=== PATIENT | female | born 1940 | race Caucasian/White ===

== ENCOUNTER → 2017-11-28 14:11 | Outpatient (CLI) | payer MEDICARE, SELFPAY ==
[2017-11-28 14:44] LABS: Add Manual Diff / Slide Review NO; Basophils Percent Auto 0.3 % (0-2); Eosinophils Percent Auto 1.5 % (2-4); Hematocrit 44.2 % (36-46); Hemoglobin 15.5 g/dL (12.0-16.0); Lymphocytes Percent Auto 28.7 % (25-40); Mean Corpuscular HGB Conc 35.1 % (30-36); Mean Corpuscular Hemoglobin 32.2 PG (26-34); Mean Corpuscular Volume 91.7 fL (80-100); Monocytes Percent Auto 10.6 % (3-14); Neutrophils Absolute Auto 4700 /uL (3000-5900); Neutrophils Percent Auto 58.9 % (50-75); Platelet Count 356 X10^3/uL (150-400); Red Blood Cell Count 4.82 X10^6/uL (4.0-5.2); Red Cell Distribution Width 14.3 % (11.6-14.8)
[2017-11-28 15:33] LABS: Alanine Aminotransferase 22 IU/L (9-52); Albumin 4.6 g/dL (3.5-5.0); Albumin Globulin Ratio 1.8 (1.0-2.8); Alkaline Phosphatase 57 U/L (38-126); Aspartate Aminotransferase 19 IU/L (14-36); BUN Creatinine Ratio 22.2 (6-22); Bilirubin Total 0.6 mg/dL (0.2-1.3); Blood Urea Nitrogen 20 mg/dL (7-17); Calcium 10.8 mg/dL (8.4-10.2); Carbon Dioxide 33 mmol/L (22-32); Chloride 103 mmol/L (98-107); Estimated Glomerular Filt Rate > 60.0 mL/min (>60); Globulin 2.5 g/dL (1.7-4.1); Glucose 86 mg/dL (80-110); HEMOLYSIS < 15 (0-50); Lipase 64 U/L (23-300); Potassium 5.2 mmol/L (3.4-5.1); Sodium 145 mmol/L (137-145); Total Protein 7.1 g/dL (6.3-8.2)
[2017-11-28 15:35] LABS: C-Reactive Protein Quant < 0.5 mg/dL (<1.0)
== END ==
PROVIDERS: Visit Provider Student in an Organized Health Care Education/Training Program
DX: R10.9 Unspecified abdominal pain (principal)
CPT/HCPCS: 36415; 80053; 83690; 85025; 86140

== ENCOUNTER → 2018-02-15 10:04 | Outpatient (CLI) | payer MEDICARE, SELFPAY ==
--- NOTE | 2018-02-15 10:16 | DI.CT.S_ITS ---
PROCEDURE: CT ABDOMEN PELVIS W CON INDICATIONS: Right lower quad pain TECHNIQUE: After the administration of oral and intravenous contrast, 5 mm thick sections acquired from the diaphragms to the symphysis. 5 mm thick coronal and sagittal reformats were performed. For radiation dose reduction, the following was used: automated exposure control, adjustment of mA and/or kV according to patient size. COMPARISON: None. FINDINGS: Image quality: Excellent. ABDOMEN: Lung bases: There is a small left pleural effusion. Mild left basilar airspace opacity is present. There is a 25 mm diameter nodule within the anterior basilar aspect of the lingula. Trace right pleural effusion. Heart size is normal. There are a few soft tissue nodules within the paracardiac fat adjacent to the cardiac apex, measuring 12 mm-32 mm. Solid organs: Hepatic contour is nodular, indicating cirrhosis.. Gallbladder is surgically absent. Biliary system is non-dilated. Pancreas enhances normally. Spleen is normal in size and enhancement. No adrenal nodules. Kidneys are normal in size and enhancement, without hydronephrosis. Peritoneum and bowel: Stomach and small bowel are within normal limits. There is moderate diffuse thickening of the distal descending colon and sigmoid colon. No free fluid or air. Nodes and vessels: No retroperitoneal or mesenteric adenopathy. Aorta and inferior vena cava are normal in caliber. Miscellaneous: No ventral hernias. PELVIS: Genitourinary: Urinary bladder is decompressed. Miscellaneous: No inguinal hernias or adenopathy. Bones: No suspicious bony lesions. Thoracolumbosacral fusion hardware is present. Hardware is intact as visualized. The right T10 pedicle screw traverses the right lateral epidural versus intrathecal space and terminates at the posterior cortex of the vertebral body. The right L2 pedicular screw head is absent, and there is a lucent defect in its stead. No vertebral body compression fractures. IMPRESSION: 1. Left lung base nodule and paracardiac soft tissue nodules; further assessment with IV contrast enhanced chest CT is recommended. 2. Mild left basilar pneumonia with small parapneumonic effusion. Trace right pleural effusion. 3. Thoracolumbar fusion hardware as above. 4. Cirrhosis. Dictated by: Bear Ulloa M.D. on 02/15/2018 at 12:14 Approved by: Bear Ulloa M.D. on 02/15/2018 at 12:20
[2018-02-15 10:39] LABS: BUN Creatinine Ratio 17.8 (6-22); Blood Urea Nitrogen 16 mg/dL (7-17); Estimated Glomerular Filt Rate > 60.0 mL/min (>60)
== END ==
PROVIDERS: PCP Student in an Organized Health Care Education/Training Program; Visit Provider Internal Medicine Gastroenterology
DX: J18.9 Pneumonia, unspecified organism (principal); R19.03 Right lower quadrant abdominal swelling, mass and lump; R10.31 Right lower quadrant pain; K74.60 Unspecified cirrhosis of liver; R91.1 Solitary pulmonary nodule; J90 Pleural effusion, not elsewhere classified; Z90.49 Acquired absence of other specified parts of digestive tract; Z98.1 Arthrodesis status
CPT/HCPCS: 36415; 74177; 82565; 84520; Q9967

== ENCOUNTER → 2018-02-20 13:15 | Outpatient (CLI) | payer MEDICARE, SELFPAY ==
--- NOTE | 2018-02-20 | DI.CT.S_ITS ---
PROCEDURE: CT CHEST W CON INDICATIONS: LUNG NODULE TECHNIQUE: After the administration of intravenous contrast, 5 mm thick sections acquired from the pulmonary apices to the posterior costophrenic angles. 7 mm thick coronal and sagittal MIP reformats were acquired. For radiation dose reduction, the following was used: automated exposure control, adjustment of mA and/or kV according to patient size. COMPARISON: [facility], CT, CT ABDOMEN PELVIS W CON, 02/15/2018, 11:19. FINDINGS: Image quality: Excellent. Lungs and pleura: No acute air space opacities. A previously present lingular segment left upper lobe nodule is seen abutting the periphery of the lung parenchyma, and pleural surface. This measures up to 1.5 x 2.3 cm, and is mildly lobulated. No similar nodules are seen elsewhere. Chronic interstitial prominence is again noted through the lung parenchyma. No mediastinal or hilar adenopathy is found. No right-sided pleural effusions or pneumothorax. There is a small left effusion without internal soft tissue nodularity or rim enhancement. Central and peripheral airways are patent and normal in caliber. Mediastinum: Heart size is normal. No pericardial effusion. No mediastinal or hilar adenopathy by size criteria. Thoracic aorta and central pulmonary arteries are normal in size. Esophagus is normal in caliber. No hiatal hernia. Bones and chest wall: No suspicious bony lesions. No vertebral body compression fractures. No axillary or supraclavicular adenopathy by size criteria. Thyroid gland appears normal where well visualized. Abdomen: Visualized upper abdominal solid organs appear normal. Upper abdominal bowel loops are normal in caliber. IMPRESSION: A nodular radiodensity was identified at the lateral border of the lingular segment left upper lobe on abdomen/pelvis CT scanning 02/15/18. This structure is again identified, stable over time, and warrants additional followup. No mediastinal or hilar adenopathy is present. A small left effusion is identified within the pleural space. Optimal followup would be obtained utilizing nuclear medicine PET CT scanning for solitary pulmonary nodule workup. The mass present could represent round atelectasis but a early bronchogenic carcinoma also could produce this appearance. Dictated by: Jony Moreno M.D. on 02/20/2018 at 13:45 Approved by: Jony Moreno M.D. on 02/20/2018 at 13:51
== END ==
PROVIDERS: PCP Student in an Organized Health Care Education/Training Program; Visit Provider Internal Medicine Gastroenterology
DX: R92.1 Mammographic calcification found on diagnostic imaging of breast (principal)
CPT/HCPCS: 71260; Q9967

== ENCOUNTER 2018-02-22 19:40 | Inpatient (IN) | payer MEDICARE, SELFPAY ==
--- NOTE | 2018-02-22 19:47 | ED.GENADULT ---
HPI - General Adult General Chief complaint: Fall Stated complaint: Low blood pressure Time Seen by Provider: 02/22/18 19:47 Source: patient and EMS Mode of arrival: EMS Limitations: no limitations History of Present Illness HPI narrative: 77-year-old female lives independently brought in by EMS after they were initially called for a lift assist. Patient states that she did fall. She was unsure exactly how she fell. She thinks she may have tripped over her walker however she is unsure. She did state that she did not have chest pain or lightheadedness or dizziness or shortness of breath prior to the fall. When EMS arrived and when they sat her up they stated that she complained of being very lightheaded. No dizziness reported. They took her blood pressure and found it to be systolic in the 70s. They brought her into the emergency department for evaluation. Upon arrival patient states that she just did not feel very good. She did complain of abdominal pain however review of her medical history this does not appear to be new. She did have a CT scan of her abdomen performed within the past month which showed no acute pathology. She is also complaining of left shoulder pain however this is not new. Also complaining of back pain but this is not new. Related Data Home Medications Medication Instructions Recorded Confirmed cyanocobalamin (vitamin B-12) 1,000 mcg PO QDAY #30 tab 06/10/17 01/13/18 melatonin 5 mg PO HS #30 tab 06/10/17 01/13/18 Previous Rx's Medication Instructions Recorded metoclopramide HCl 10 mg PO TIDAC PRN #30 tab 06/10/17 trazodone 100 mg tablet 200 mg PO HS 30 Days #60 tab 12/12/17 levothyroxine 100 mcg tablet 100 mcg PO DAILY #90 tab 12/16/17 duloxetine 30 mg capsule,delayed 30 mg PO BID #60 tab 12/26/17 release metoprolol tartrate 25 mg tablet 25 mg PO BID #60 tab 12/26/17 famotidine 20 mg tablet 20 mg PO BID #60 tab 01/06/18 alprazolam 1 mg tablet 1 mg PO BIDP PRN #60 tab 01/13/18 gabapentin 300 mg capsule 300 mg PO BID 30 Days #60 cap 01/13/18 simvastatin 20 mg tablet 20 mg PO HS #30 tab 11/05/18 Allergies Allergy/AdvReac Type Severity Reaction Status Date / Time meperidine [From DEMEROL] Allergy Unknown Verified 01/13/18 14:30 piroxicam [From FELDENE] Allergy Unknown Verified 01/13/18 14:30 Review of Systems Constitutional Denies chills, Reports fatigue, Denies frequent falls, Denies headache(s), Reports lethargy and Reports weakness Eyes Denies blurry vision and Denies diplopia ENT Ears, Nose, Mouth, and Throat: Denies vertigo, Denies dizziness, Denies headache(s) and Reports disequilibrium Cardiovascular Denies chest pain, Denies syncope, Denies edema, Denies irregular heart rhythm, Reports lightheadedness, Denies palpitations, Denies dyspnea and Denies slow heart rate Respiratory Denies cough and Denies dyspnea Gastrointestinal Gastrointestinal: Reports abdominal pain, Denies nausea and Denies vomiting Musculoskeletal Denies myalgias, Denies arthralgias and Denies tingling Integumentary/Breasts Denies rash Neurologic Denies vertigo, Denies dizziness, Denies syncope, Denies frequent falls, Denies headache(s), Denies tingling, Reports disequilibrium and Reports weakness Endocrine Reports fatigue and Denies palpitations Hematologic/Lymphatic Comments: Not on anticoagulation PFSH Medical History Epigastric pain (Acute) Polyneuropathy (Acute) Cervical spine disease (Chronic 1989) Chronic back pain (Chronic 1989) Depression (Chronic Unknown) Hiatal hernia (Chronic Unknown) Hyperlipemia (Chronic 2000) Hypertension (Chronic 2002) Hyperthyroidism (Chronic 1967) Lumbar disc disease (Chronic 2000) Osteoarthritis (Chronic 1997) Sleep apnea (Chronic 2001) Abnormal Pap smear of cervix (Resolved 1967) Cardiac arrhythmia (Resolved 2000) Fractures (Resolved Unknown) Measles (Resolved 1964) Mumps (Resolved 1965) Shoulder pain (Resolved 2015) Surgical History History of back surgery (Resolved Unknown) History of hip surgery (Resolved 2006) History of repair of ACL (Resolved Unknown) Hx of appendectomy (Resolved 1949) Hx of cholecystectomy (Resolved 1998) Hx of hysterectomy (Resolved 1967) Hx of tonsillectomy (Resolved ~1945) Family History Brother Age: 65 Diabetes mellitus Methamphetamine addiction Father Hypertension High cholesterol Mother No problems noted. Social History Smoking Status: Current every day smoker alcohol intake: never substance use type: does not use Exam Initial Vital Signs Initial Vital Signs: Vital Signs Temperature 98.7 F 02/22/18 19:48 Pulse Rate 82 02/22/18 19:48 Respiratory Rate 20 02/22/18 19:48 Blood Pressure 113/61 02/22/18 19:48 Pulse Oximetry 91 02/22/18 19:48 Const General: cooperative, well developed, well groomed and No acute distress Orientation: alert, awake and oriented x3 HENMT Head: normal to inspection and normocephalic Resp Effort & Inspection: normal respiratory effort Auscultation: clear to auscultation bilaterally Cardio Rate: regular rate Pulses: radial pulses present GI Inspection: non-distended Palpation: soft, No guarding and tender (Bilateral lower abdomen) Skin Lesions: no lesions Rashes: no rashes Neuro General: alert, awake and oriented x3 Cognition: normal cognition Speech: speech normal Extrem General: normal to inspection and capillary refill normal Psych Appearance: grossly normal and well kempt Scores GCS Analy coma scale eye opening: Spontaneous [place] coma scale verbal response: Orientated [place] coma scale motor response: Obey commands Analy coma scale total score: 15 Course Orders Ordered: ED Orders 02/22/18 20:16 Complete Blood Count AUTO DIFF Stat Comprehensive Metabolic Panel Stat Lactate (Lactic Acid) Stat Lipase Stat 02/22/18 20:17 Troponin I Stat Sodium Chloride (Normal Saline 0.9%) 1,000 mls @ 125 mls/hr IV CONT ASHLEY Discontinued Medications Sodium Chloride (Normal Saline 0.9%) 1,000 mls @ 1,000 mls/hr IV BOLUS ONE Stop: 02/22/18 23:24 Last Infusion: 02/22/18 23:58 Dose: 0 mls/hr Admin: 02/22/18 22:34 Dose: 1,000 mls/hr Tramadol HCl (Ultram) 50 mg PO NOW ONE Stop: 02/22/18 20:17 Last Admin: 02/22/18 20:21 Dose: 50 mg Vital Signs - 8 hr 02/22/18 19:48 02/22/18 20:33 02/22/18 21:39 Temperature 98.7 F Pulse Rate 82 74 64 Respiratory Rate 20 15 14 Blood Pressure 113/61 Blood Pressure [Left Arm] 113/61 103/74 Pulse Oximetry 91 92 93 02/22/18 22:35 02/22/18 23:05 Temperature Pulse Rate 61 61 Respiratory Rate 14 14 Blood Pressure Blood Pressure [Left Arm] 95/56 L 112/62 Pulse Oximetry 96 96 Medical Decision Making Medical Records Medical records reviewed: Yes I reviewed the patient's medical records. Lab Data Lab results reviewed: Yes I reviewed the patient's lab results. Result diagrams: 02/22/18 19:42 02/22/18 19:42 Lab Results 02/22/18 02/22/18 02/22/18 Range/Units 19:42 19:42 19:42 WBC 9.9 (4.5-11.0) X10^3/uL RBC 5.07 (4.0-5.2) X10^6/uL Hgb 16.0 (12.0-16.0) g/dL Hct 47.2 H (36-46) % MCV 93.1 (80-100) fL MCH 31.5 (26-34) PG MCHC 33.9 (30-36) % RDW 14.9 H (11.6-14.8) % Plt Count 315 (150-400) X10^3/uL Neut % (Auto) 66.0 (50-75) % Lymph % (Auto) 17.6 L (25-40) % [place] % (Auto) 13.7 (3-14) % Eos % (Auto) 1.9 L (2-4) % Baso % (Auto) 0.8 (0-2) % Neut # (Auto) 6500 H (8933-1108) /uL Sodium 135 L (137-145) mmol/L Potassium 4.2 (3.4-5.1) mmol/L Chloride 101 (98-107) mmol/L Carbon Dioxide 22 (22-32) mmol/L BUN 20 H (7-17) mg/dL Creatinine 0.90 (0.52-1.04) mg/dL Estimated GFR > 60.0 (>60) mL/min BUN/Creatinine Ratio 22.2 H (6-22) Glucose 169 H (80-110) mg/dL Lactate (0.7-2.1) mmol/L Calcium 9.4 (8.4-10.2) mg/dL Total Bilirubin 1.4 H (0.2-1.3) mg/dL AST 170 H (14-36) IU/L ALT 142 H (9-52) IU/L Alkaline Phosphatase 254 H (38-126) U/L Troponin I < 0.012 Cancelled (0.01-0.034) ng/mL Total Protein 6.5 (6.3-8.2) g/dL Albumin 3.7 (3.5-5.0) g/dL Globulin 2.8 (1.7-4.1) g/dL Albumin/Globulin Ratio 1.3 (1.0-2.8) Lipase 250 (23-300) U/L 02/22/18 Range/Units 20:29 WBC (4.5-11.0) X10^3/uL RBC (4.0-5.2) X10^6/uL Hgb (12.0-16.0) g/dL Hct (36-46) % MCV (80-100) fL MCH (26-34) PG MCHC (30-36) % RDW (11.6-14.8) % Plt Count (150-400) X10^3/uL Neut % (Auto) (50-75) % Lymph % (Auto) (25-40) % [place] % (Auto) (3-14) % Eos % (Auto) (2-4) % Baso % (Auto) (0-2) % Neut # (Auto) (7301-7084) /uL Sodium (137-145) mmol/L Potassium (3.4-5.1) mmol/L Chloride (98-107) mmol/L Carbon Dioxide (22-32) mmol/L BUN (7-17) mg/dL Creatinine (0.52-1.04) mg/dL Estimated GFR (>60) mL/min BUN/Creatinine Ratio (6-22) Glucose (80-110) mg/dL Lactate 0.8 (0.7-2.1) mmol/L Calcium (8.4-10.2) mg/dL Total Bilirubin (0.2-1.3) mg/dL AST (14-36) IU/L ALT (9-52) IU/L Alkaline Phosphatase (38-126) U/L Troponin I (0.01-0.034) ng/mL Total Protein (6.3-8.2) g/dL Albumin (3.5-5.0) g/dL Globulin (1.7-4.1) g/dL Albumin/Globulin Ratio (1.0-2.8) Lipase (23-300) U/L ECG Data Attestation: I personally reviewed and interpreted this ECG as follows: Prior ECG tracings: not available for review Interpretation: Sinus rhythm Ventricular rate 81 Normal axis Normal QRS Normal QTC Nonspecific ST T wave changes MDM Narrative Medical decision making narrative: Patient does have elevated liver enzymes compared with November of this year. Patient has a normal lipase. Has had her gallbladder removed in the past. Unsure the exact etiology of this for if it has anything to do with the symptoms that brought her in today. Her abdominal pain shoulder pain and back pain do not appear to be new. Considered AAA however she had a CT scan performed within the past couple weeks which showed a normal caliber aorta. Patient not anemic. Electrolytes unremarkable. Patient was given 1 L of fluids however when we attempted to ambulate the patient she became orthostatic and very lightheaded. Another L of fluids was ordered and again when we attempted to ambulate the patient she became orthostatic. She does take metoprolol twice a day. Her heart rate did not increase with her lower blood pressures. Unsure if she potentially took an extra dose of her metoprolol or potentially took an extra dose of her alprazolam. Discussed the case with the hospitalist who will admit the patient for observation and continued evaluation and treatment. Discharge Plan Departure Patient Disposition: Admitted as Observation Clinical Impression: Hypotension, Fall, Elevated liver enzymes Admit Date/Time: 02/23/18 00:20 Admit Provider: Goran Ramey
[2018-02-22 19:48] VITALS: BP 113/61; PULSE 82; RESP 20; TEMP 37.1; O2SAT 91; BMI 20.9
--- NOTE | 2018-02-22 20:00 | PC.NURSE ---
talked to pts son on the phone per pt permission, informed him of plan of care. Provider aware of conversation.
[2018-02-22] MEDS: TRAMADOL 50 MG TABLET PO (20:21)
[2018-02-22 20:24] LABS: Add Manual Diff / Slide Review NO; Basophils Percent Auto 0.8 % (0-2); Eosinophils Percent Auto 1.9 % (2-4); Hematocrit 47.2 % (36-46); Lymphocytes Percent Auto 17.6 % (25-40); Mean Corpuscular HGB Conc 33.9 % (30-36); Mean Corpuscular Hemoglobin 31.5 PG (26-34); Mean Corpuscular Volume 93.1 fL (80-100); Monocytes Percent Auto 13.7 % (3-14); Neutrophils Absolute Auto 6500 /uL (3000-5900); Platelet Count 315 X10^3/uL (150-400); Red Blood Cell Count 5.07 X10^6/uL (4.0-5.2); Red Cell Distribution Width 14.9 % (11.6-14.8); White Blood Cell Count 9.9 X10^3/uL (4.5-11.0)
[2018-02-22 20:33] VITALS: BP 113/61; PULSE 74; RESP 15; O2SAT 92
[2018-02-22 20:38] LABS: Alanine Aminotransferase 142 IU/L (9-52); Albumin 3.7 g/dL (3.5-5.0); Albumin Globulin Ratio 1.3 (1.0-2.8); Alkaline Phosphatase 254 U/L (38-126); Aspartate Aminotransferase 170 IU/L (14-36); BUN Creatinine Ratio 22.2 (6-22); Bilirubin Total 1.4 mg/dL (0.2-1.3); Blood Urea Nitrogen 20 mg/dL (7-17); Calcium 9.4 mg/dL (8.4-10.2); Carbon Dioxide 22 mmol/L (22-32); Chloride 101 mmol/L (98-107); Estimated Glomerular Filt Rate > 60.0 mL/min (>60); Globulin 2.8 g/dL (1.7-4.1); Glucose 169 mg/dL (80-110); Lipase 250 U/L (23-300); Sodium 135 mmol/L (137-145); Total Protein 6.5 g/dL (6.3-8.2)
[2018-02-22 20:39] LABS: HEMOLYSIS 82 (0-50); Potassium 4.2 mmol/L (3.4-5.1)
[2018-02-22 20:45] LABS: Lactate (Lactic Acid) 0.8 mmol/L (0.7-2.1)
[2018-02-22 20:50] LABS: Troponin I < 0.012 ng/mL (0.01-0.034)
[2018-02-22 21:39] VITALS: BP 103/74; PULSE 64; RESP 14; O2SAT 93
--- NOTE | 2018-02-22 21:59 | PC.NURSE ---
Pt given ambulation trial, pt became very dizzy/lightheaded. BP 94/74 requesting to sit down. Provider aware. Pt placed back in bed with call light.
[2018-02-22] MEDS: SODIUM CHLORIDE 0.9% 1,000 ML 1000 ML IV ×2 (22:30→22:34)
--- NOTE | 2018-02-22 22:34 | PC.NURSE ---
offered pt a sandwich and beverage per provider. pt refused. provider aware.
[2018-02-22 22:35] VITALS: BP 95/56; PULSE 61; RESP 14; O2SAT 96
--- NOTE | 2018-02-22 23:00 | PC.NURSE ---
Talked to pts family member Blaine, permission to share medical information from pt. Blaine informed of current plan of care, questions were answered. No new orders at this time. Pt aware.
[2018-02-22 23:05] VITALS: BP 112/62; PULSE 61; RESP 14; O2SAT 96
--- NOTE | 2018-02-22 23:59 | PC.NURSE ---
When she stood from sitting her b/p fell from 114/60 to 87/55and she became weak on her feet.DR Jansen notified.
[2018-02-23] VITALS (21 sets, daily range): BP systolic 93–128; BP diastolic 52–69; PULSE 59–78; RESP 12–22; TEMP 36.3–36.9; O2SAT 89–96; BMI 21.3
--- NOTE | 2018-02-23 | DI.CT.S_ITS ---
PROCEDURE: CT BIOPSY LUNG LT Sedation analgesia for 30 minutes. INDICATIONS: lung mass TECHNIQUE: The indications, alternatives, benefits, risks, and possible complications of the procedure were communicated to the patient. Informed written consent from the patient was obtained and placed in the chart. Continuous EKG and hemodynamic monitoring was started by trained personnel. The patient was brought to the CT suite and assembler watch train spiral CT imaging was performed with localization grid. The appropriate site for percutaneous access to the biopsy target was marked, was prepped and draped sterilely, and was infused with local anaesthesia. Under CT guidance, a core biopsy trocar and needle set was advanced to the biopsy target, and specimen(s) were obtained. The trocar and needle were then removed, and the patient was sent for post-procedure monitoring. COMPARISON: None. FINDINGS: Biopsy site: Lateral left lingula segment near left lung base anterior to oblique fissure. Needle: 18 gauge biopsy needle with introducer trocar. Number of passes: 5 Medications: 1% lidocaine for local anaesthesia. IV Fentanyl and Versed for conscious sedation for 30 minutes (see nursing record). Complications: None. IMPRESSION: Successful CT-guided biopsy of lingula segment of left upper lobe. Dictated by: Andrew Crawford M.D. on 02/23/2018 at 13:10 Approved by: Andrew Crawford M.D. on 02/23/2018 at 13:21
--- NOTE | 2018-02-23 | PATH_ITS ---
[facility] Accession Number: [id number] . 01 Material submitted: . KAREN NEAR BASE . 01 Clinical history: . LINGULAR SEGMENT LATERAL NEEDLE CORE BIOPSY . 02 Diagnosis: Lung, Left Upper Lobe, Near Base, Needle Core Biopsy: Poorly differentiated neuroendocrine carcinoma, consistent with small cell carcinoma. MRV/02/28/2018 . 02 Comment: The findings in this case were discussed with Dr. Mauricio by Dr. Dandre Thompson on 02/28/2018 at 11:55 a.m. . As part of routine research quality assurance analyst, Dr. Castaneda has reviewed this case and agrees with the above diagnosis. . 02 Electronically signed: . Dandre Thompson MD, PhD, Pathologist NPI- [id number] . 01 Gross description: . Received in formalin are multiple intact and fragmented core biopsies of landon-white translucent tissue (lengths: 0.2 cm-0.9 cm, diameters-less than 0.1 cm). Entirely submitted in cassette A1. ([id number]) /MRV . 02 Microscopic: . Sections are of fibrotic lung parenchyma expanded by a proliferation of atypical epithelioid cells with a nested growth pattern. To further evaluate these cells of interest, a panel of immunohistochemical stains is performed (each with an appropriately positive control). The neoplastic cells are strongly and diffusely positive for TTF1 and variably positive for both chromogranin and synaptophysin immunoreactivity. The cells of interest are negative for CK5, p40 and napsin immunoreactivity. Overall, the histologic findings and immunoprofile are consistent with a neuroendocrine carcinoma, favor small cell. . * This test was developed and its performance characteristics determined by [employer]. It has not been cleared or approved by the U.S. Food and Drug Administration. The FDA has determined that such clearance or approval is not necessary. This test is used for clinical purposes. It should not be regarded as investigational or for research. . 02 Pathologist provided ICD-10: C34.12 . 02 CPT . 313969, G82424, R23342 Performed at: 01 [facility] [address] [id number] MD Andre Patel MD Phone: [phone] Performed at: 02 [facility] [address] [place] [id number] MD Fadia Castaneda MD Phone: [phone]
--- NOTE | 2018-02-23 00:06 | PC.NURSE ---
Unable to verify medications,she is not sure of her meds and she has no list.
--- NOTE | 2018-02-23 00:38 | DI.CT.S_ITS ---
PROCEDURE: CT ABDOMEN PELVIS W CON INDICATIONS: lower right sided abdominal pain TECHNIQUE: After the administration of intravenous contrast, 5 mm thick sections acquired from the diaphragm to the symphysis. 5 mm coronal and sagittal reformats were acquired. For radiation dose reduction, the following was used: automated exposure control, adjustment of mA and/or kV according to patient size. COMPARISON: [facility], CT, CT ABDOMEN PELVIS W CON, 02/15/2018, 11:19. FINDINGS: Image quality: There is metallic streak artifact from patient's surgical hardware in the thoracolumbar spine and left hip as well as beam hardening artifact from patient's upper extremities. ABDOMEN: Lung bases: There is a lobulated nodule inferiorly in the left lingula measuring up to 2.1 x 1.5 cm redemonstrated. There is adjacent nodular masslike thickening along the pericardium measuring up to approximately 2.3 x 1.9 cm at the apex. The findings are suspicious for neoplasm. In addition, there are peripheral opacities in the left lower lobe likely representing atelectasis. Within the visualized lung bases, there are small pulmonary nodules also demonstrated on the right including a 3 mm right middle lobe nodule on series 4 image 8, a 4 mm subpleural nodule in the right lower lobe on image 9, and a 4 mm right lower lobe nodule on image 12. Small bilateral pleural effusions are demonstrated with loculated components demonstrated on the left. Heart size is normal. Solid organs: The liver is nodular in contour with diffuse nodular heterogeneous enhancement likely representing cirrhosis. The gallbladder surgically absent. Biliary system is non dilated. Pancreas enhances normally. Spleen is normal in size and enhancement. There is thickening of the left adrenal gland. Kidneys demonstrate no hydronephrosis. Peritoneum and bowel: Small bowel loops demonstrate normal wall thickness and caliber. There is mild diffuse wall thickening demonstrated throughout the colon most prominent in the sigmoid colon. A minimal amount of free fluid is demonstrated along the left paracolic gutter and in the pelvis. Nodes and vessels: No retroperitoneal or mesenteric adenopathy by size criteria. Aorta and inferior vena cava are normal in size. There is bilateral scattered calcified atherosclerotic plaque. Miscellaneous: No ventral hernias. PELVIS: Genitourinary: Bladder wall thickness is normal. Miscellaneous: No inguinal hernias or adenopathy. Bones: Sequelae of prior compression fractures status post postsurgical fixation are redemonstrated throughout the thoracolumbar spine. The findings are similar to the recent prior study. IMPRESSION: 1. Lobulated nodule in the inferior left lingula as well as masslike thickening along the pericardium are highly suspicious for a malignant neoplastic process. Recommend dedicated thoracic CT and histologic diagnosis as clinically indicated. 2. Small bilateral pleural effusions with loculated components in the left base. 3. Diffuse mild colonic wall thickening consistent with a nonspecific colitis most prominent within the sigmoid colon. 4. Nodular hepatic contour with heterogeneous nodular enhancement of the parenchyma likely representing cirrhosis. Evaluation for a focal hepatoma is limited on the current study. Further characterization may be performed with a liver protocol MRI or CT if indicated. 5. Extensive post-traumatic and post-surgical changes in the thoracolumbar spine. Dictated by: Andre Kahn M.D. on 02/23/2018 at 8:19 Approved by: Andre Khan M.D. on 02/23/2018 at 8:50
[2018-02-23] MEDS: SODIUM CHLORIDE 0.9% 1,000 ML 125 ML IV (00:59)
--- NOTE | 2018-02-23 01:14 | P.HP_ITS ---
History of Present Illness Chief complaint: Low blood pressure Narrative: PMH: HTN, HLD, WALESKA, hypothyroidism, polyneuropathy, depression, GERD , hiatal hernia, chronic lumbar back pain w/ sciatica, OA, tobacco dependence, prior history of heavy alcohol use PSH: cholecystectomy, appendectomy, hysterectomy Patient presented to the ED via EMS transfer on 02/22/2018 at 1933 respectively. Shortly prior to ED arrival, patient was sitting in her walker, she felt her legs to become weak and slipped off the walker landing onto her right side. Patient denies injury to the head and loss of conscious. With the exception of leg weakness the patient patient did not experience dizziness, lightheadedness, chest pain, palpitations, or diaphoresis. However, upon EMS arrival, patient was placed in a sitting position, at which time she was observed for symptoms consistent with postural changes. She was treated w/ 1L of NS bolus in field and received 2 L of NS in ED. Patient reports presence of PVCs for which she takes a beta-kurt; however, she denies history of tachy or vazquez arrhythmia, TIA/CVA, or thrombosis. In the past 2-3 weeks ago patient has been experiencing intermittent chest discomfort, which she describes as dull and at times sharp. Denies pleurisy, radiation to upper extremities, back, neck, or jaw. She experiences the chest discomfort multiple times a day. Denies associated dyspnea (at rest or with exertion), orthopnea, or peripheral edema. She has noted abdominal distension and abdominal discomfort in the upper quadrants of the abdomen. Notes constipation. Denies nausea, vomiting, or hemoptysis. Denies fever and chills. No significant weight loss, or profound fatigue, ecchymoses, or blood loss per rectum. Arthropathy present. Patient is known to have a 50 pack year history of tobacco dependence. Current smokes 1/2 pack per day. Known to have prior history of EtOH abuse, half a bottle of wine daily for 3 years, quit 10 years ago. Family history significant for myelodysplastic disorder in her mother. ED presentation / work-up T 98.7, BP 113/61, HR 82, RR 20, SpO2 91% WBC 9.9, RBC 5.07, HGB 16.0, HCT 47.2, PLT 315 NA 135, K 4.2, CL 101, CO2 22, CA 9.4, GLU 169 BUN 20, CR 0.9, BUN:CR 22.2, GFR > 60 Lactate 0.8, Trop < 0.012 T. BILI 1.4, AST 170, ALT 142, ALK PHOS 254, ALB 3.7, Lipase 250 Patient History Medical History Epigastric pain (Acute) Polyneuropathy (Acute) Cervical spine disease (Chronic 1989) Chronic back pain (Chronic 1989) Depression (Chronic Unknown) Hiatal hernia (Chronic Unknown) Hyperlipemia (Chronic 2000) Hypertension (Chronic 2002) Hyperthyroidism (Chronic 1967) Lumbar disc disease (Chronic 2000) Osteoarthritis (Chronic 1997) Sleep apnea (Chronic 2001) Abnormal Pap smear of cervix (Resolved 1967) Cardiac arrhythmia (Resolved 2000) Fractures (Resolved Unknown) Measles (Resolved 1964) Mumps (Resolved 1965) Shoulder pain (Resolved 2015) Surgical History History of back surgery (Resolved Unknown) History of hip surgery (Resolved 2006) History of repair of ACL (Resolved Unknown) Hx of appendectomy (Resolved 1949) Hx of cholecystectomy (Resolved 1998) Hx of hysterectomy (Resolved 1967) Hx of tonsillectomy (Resolved ~1945) Family & Social History Family History: Reviewed 02/23/18 by MYESHA Ball Safety & Behavioral: Feels Safe in Current Yes Environment Been Physically Hurt or No Threatened By a Person Tobacco & Substance use: Smoking Status Current every day smoker alcohol intake never Substance Use Type does not use Meds Home Medications Medication Instructions Recorded Confirmed Type cyanocobalamin (vitamin B-12) 1,000 mcg PO QDAY #30 tab 06/10/17 01/13/18 History melatonin 5 mg PO HS #30 tab 06/10/17 01/13/18 History metoclopramide HCl 10 mg PO TIDAC PRN #30 tab 06/10/17 01/13/18 Rx trazodone 100 mg tablet 200 mg PO HS 30 Days #60 tab 12/12/17 01/13/18 Rx levothyroxine 100 mcg tablet 100 mcg PO DAILY #90 tab 12/16/17 01/13/18 Rx duloxetine 30 mg capsule,delayed 30 mg PO BID #60 tab 12/26/17 01/13/18 Rx release metoprolol tartrate 25 mg tablet 25 mg PO BID #60 tab 12/26/17 01/13/18 Rx famotidine 20 mg tablet 20 mg PO BID #60 tab 01/06/18 01/13/18 Rx alprazolam 1 mg tablet 1 mg PO BIDP PRN #60 tab 01/13/18 Rx gabapentin 300 mg capsule 300 mg PO BID 30 Days #60 cap 01/13/18 Rx simvastatin 20 mg tablet 20 mg PO HS #30 tab 01/16/18 Rx Allergies Allergy/AdvReac Type Severity Reaction Status Date / Time meperidine [From DEMEROL] Allergy Unknown Verified 01/13/18 14:30 piroxicam [From FELDENE] Allergy Unknown Verified 01/13/18 14:30 Review of Systems Review of Systems All systems reviewed & are unremarkable except as noted in HPI and below Exam Vital Signs (past 8 hours): - 02/22/18 19:48 02/22/18 20:33 02/22/18 21:39 Temperature 98.7 F Pulse Rate 82 74 64 Respiratory Rate 20 15 14 Blood Pressure 113/61 Blood Pressure [Left Arm] 113/61 103/74 Pulse Oximetry 91 92 93 02/22/18 22:35 02/22/18 23:05 02/23/18 00:21 Temperature Pulse Rate 61 61 59 L Respiratory Rate 14 14 18 Blood Pressure Blood Pressure [Left Arm] 95/56 L 112/62 93/52 L Pulse Oximetry 96 96 95 Oxygen Delivery Method Nasal Cannula Oxygen Flow Rate 2 Narrative Exam Narrative: Constitutional: NAD Neurologic: AOx3, forgetful, adequate recall of history and symptoms Head: NC, AT Eyes: Pupils equal and reactive, gaze conjugate, no jaundice Ears: external ears normal, no otorrhea Nose: external nose normal, no rhinorrhea or epistaxis Throat: MMM, oropharynx w/o exudate Neck: no masses, lymphadenopathy, or JVD Chest / Respiratory: equal chest rise, unlabored respiratory effort / diminished, LLL anterior crackles, no tachypnea Heart / CV: S1S2, no murmur Abdomen / GI: mistended, palpable hepatomegaly, tender right upper quadrant, normal active bowel sounds, no inguinal lymphadenopathy : Suprapubic tenderness Peripheral / Vascular: warm to touch, distal pulses palpable, no edema Musc: full ROM of upper and lower extremities, adequate muscle tone and bulk Skin: no ecchymosis or suspicious lesions / ulcers Objective Labs Result Diagrams: 02/22/18 19:42 02/22/18 19:42 Labs: Laboratory Results - last 24 hr 02/22/18 02/22/18 02/22/18 19:42 19:42 19:42 WBC 9.9 RBC 5.07 Hgb 16.0 Hct 47.2 H MCV 93.1 MCH 31.5 MCHC 33.9 RDW 14.9 H Plt Count 315 Neut % (Auto) 66.0 Lymph % (Auto) 17.6 L [place] % (Auto) 13.7 Eos % (Auto) 1.9 L Baso % (Auto) 0.8 Neut # (Auto) 6500 H Sodium 135 L Potassium 4.2 Chloride 101 Carbon Dioxide 22 BUN 20 H Creatinine 0.90 Estimated GFR > 60.0 BUN/Creatinine Ratio 22.2 H Glucose 169 H Lactate Calcium 9.4 Total Bilirubin 1.4 H AST 170 H ALT 142 H Alkaline Phosphatase 254 H Troponin I < 0.012 Cancelled Total Protein 6.5 Albumin 3.7 Globulin 2.8 Albumin/Globulin Ratio 1.3 Lipase 250 02/22/18 20:29 WBC RBC Hgb Hct MCV MCH MCHC RDW Plt Count Neut % (Auto) Lymph % (Auto) [place] % (Auto) Eos % (Auto) Baso % (Auto) Neut # (Auto) Sodium Potassium Chloride Carbon Dioxide BUN Creatinine Estimated GFR BUN/Creatinine Ratio Glucose Lactate 0.8 Calcium Total Bilirubin AST ALT Alkaline Phosphatase Troponin I Total Protein Albumin Globulin Albumin/Globulin Ratio Lipase Assessment & Plan Plan: Assessment/Plan Narrative: Hypotension Potentially multifactorial, in the setting of dehydration / hypovolemia, 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 Concern for bronchogenic carcinoma or mediastinal malignancy with potential pericardial metastasis - consult Oncology, will need malignancy workup and further imaging and biopsy sooner rather than later, CT with changes changes since last imaging 10 days ago - discussed with patient the extent of workup she would wish to pursue, patient unable to make decision at this time, waiting to speak to her son in a.m. - continuous tele and pulse ox monitoring - monitor for signs/symptoms of cardiac tamponade Elevated liver enzymes + abdominal pain, distention CT of abdomen remarkable for hepatomegaly. Fatty infiltration and sclerotic change of the liver. CT imaging questionable for gastritis versus colitis. No indication of sepsis. Gallbladder is absent. No ductal dilatation. No obstructive process of large or small bowel. Family history of myelodysplastic disorder in the mother, diagnosed at age 74. HGB 16.0 HCT 47.2 - trend LFTs, UA, coags - concern for iron overload, will get iron panel/transfer and level Left shoulder pain, chronic - fentanyl patch
--- NOTE | 2018-02-23 02:18 | PC.NURSE ---
her o2 saturation dropped to 87 on room air,2liters nasal cannula re-applied.
[2018-02-23] MEDS: fentaNYL 12 MCG/PATCH TOP (04:21)
[2018-02-23 04:26] LABS: Bacteria Urine None Seen; RBC Urine None Seen (0-5/HPF); WBC Urine None Seen (0-5/HPF)
[2018-02-23 04:32] LABS: Appearance Urine UA CLEAR; Bilirubin Urine UA NEGATIVE (NEGATIVE); Color Urine UA YELLOW; Glucose Urine UA TRACE g/dL (Normal); Ketones Urine UA NEGATIVE (NEGATIVE); Leukocyte Esterase Urine UA NEGATIVE (NEGATIVE); Nitrite Urine UA NEGATIVE (Negative); Occult Blood Urine UA NEGATIVE (Negative); Protein Urine UA NEGATIVE (Negative)
[2018-02-23 04:48] LABS: Culture Indicated Urine Cult Not Indicated; Urine Comments Microscopic Normal
--- NOTE | 2018-02-23 04:56 | PC.ADMIT ---
Addendum entered by Rehana Helms R.N. 02/23/18 06:08: Has been sleeping with sat of 94%. States pain is now down to 6/10. Original Note: [email or web address] Admission Note: The patient,Alba Zarate,77 y/o, was given written information regarding hospital policies, unit procedures and contact persons. Patient's smoking status: Current every day smoker. Vital Signs - 8 hr 02/22/18 21:39 02/22/18 22:35 02/22/18 23:05 Pulse Rate 64 61 61 Respiratory Rate 14 14 14 Blood Pressure [Left Arm] 103/74 95/56 L 112/62 Pulse Oximetry 93 96 96 02/23/18 00:21 02/23/18 02:16 02/23/18 03:59 Pulse Rate 59 L 60 Respiratory Rate 18 18 Blood Pressure [Left Arm] 93/52 L 95/60 Pulse Oximetry 95 93 94 Patient admitted to room 230 per stretcher from ER. Is alert and oriented. Breath sounds with inspiratory crackles and expiratory wheezes but denies SOB. On oxygen at 1L/min per NC with sat of 94%. HRR and telemetry showing SR. Denies nausea. BT present and abdomen is soft but tender. Complains of 8-9/10 pain in back and left shoulder which is chronic; Fentanyl patch ordered by [facility] and placed. Indwelling catheter placed with dark jessy/brown urine returned; tolerated procedure well; UA sent to lab. Skin dry but without open areas. Does have scarring on back related to history of 7 back surgeries. Fall risk score is high and bed alarm activated; patient verbalizes understanding. Has chronic numbness in tips of fingers and bilateral feet. Normally walks with rolling walker which has a seat and that is what she slipped out of precipitating her arrival at the ER. Current smoker and has history of alcohol use but denies any alcohol in past 3 years. States her legs haven't been working well day of presentation and has felt weak. Placed on continuous pulse oximetry and sat dropped to 89% when asleep but noted to be mouth breathing so cannula placed in mouth and sat now at 96%; states she has history of sleep apnea and used to use a CPAP but it was stolen and never replaced. Oriented to bed controls and call light.
[2018-02-23 05:15] LABS: INR 1.1 (0.9-1.3); Prothrombin Time 12.7 SECONDS (10.1-12.7)
[2018-02-23 05:18] LABS: PTT Partial Thromboplastin Tim 31 SECONDS (26.4-36.2)
[2018-02-23 05:19] LABS: Alanine Aminotransferase 131 IU/L (9-52); Albumin Globulin Ratio 1.3 (1.0-2.8); Alkaline Phosphatase 223 U/L (38-126); Aspartate Aminotransferase 131 IU/L (14-36); Bilirubin Total 0.9 mg/dL (0.2-1.3); Bilirubin Unconjugated 0.2 mg/dL (0.0-1.1); Globulin 2.4 g/dL (1.7-4.1); HEMOLYSIS < 15 (0-50); Total Protein 5.4 g/dL (6.3-8.2)
[2018-02-23 05:21] LABS: Blood Urea Nitrogen 16 mg/dL (7-17); Calcium 8.4 mg/dL (8.4-10.2); Carbon Dioxide 23 mmol/L (22-32); Chloride 105 mmol/L (98-107); Estimated Glomerular Filt Rate > 60.0 mL/min (>60); Glucose 95 mg/dL (80-110); HEMOLYSIS < 15 (0-50); Potassium 3.5 mmol/L (3.4-5.1); Sodium 137 mmol/L (137-145)
[2018-02-23 05:25] LABS: Add Manual Diff / Slide Review NO; Basophils Percent Auto 0.8 % (0-2); Eosinophils Percent Auto 3.8 % (2-4); Hematocrit 42.6 % (36-46); Hemoglobin 14.6 g/dL (12.0-16.0); Mean Corpuscular HGB Conc 34.3 % (30-36); Mean Corpuscular Hemoglobin 32.2 PG (26-34); Monocytes Percent Auto 13.9 % (3-14); Neutrophils Absolute Auto 4900 /uL (3000-5900); Neutrophils Percent Auto 65.5 % (50-75); Platelet Count 246 X10^3/uL (150-400); Red Blood Cell Count 4.54 X10^6/uL (4.0-5.2); White Blood Cell Count 7.5 X10^3/uL (4.5-11.0)
[2018-02-23 05:48] LABS: HEMOLYSIS 30 (0-50); Iron 52 ug/dL (37-170)
[2018-02-23 05:59] LABS: Percent Iron Saturation 21 % (15-50); Total Iron Binding Capacity 251 ug/dL (265-497); Transferrin 168 mg/dL (206-381)
[2018-02-23 06:25] LABS: Ferritin 67.1 ng/mL (11.1-264)
--- NOTE | 2018-02-23 08:47 | CM.DANOTE ---
DCP: Case received, EMR reviewed and met with patient. Introduced self and role. DCP template completed with information currently available, and from son over the phone. Patient is a 77 year old female who admitted early this morning to the care of the hospitalist team. PCP: Dr. Reid. Payer: confirmed: Medicare/[employer]. Patient came to hospital via ambulance from [facility], secondary to low blood pressure. Patient carries diagnosis of Hypovolemia, Hypotension. Patient told this case management social worker that she uses walker at facility. Called son, Blaine MOON, his phone number is on face sheet, to obtain further information. He lives in [facility]. Stated that his mother has had 3 recent falls, and is concerned about her getting enough fluids and nutrition. He stated that at times, she just skips meals. [facility] is independent living. Discussed having a caregiver come in for a few hours a day, and was not opposed to this idea. Stated that her funds are limited. Explained observation status, for at this time, is determined if inpatient by utilization review, and if so, could receive Medicare benefit. Otherwise, would not be covered under Medicare. P: To be determined by progress here in hospital. Will discuss case at team rounds. Unclear if she can return to [facility] as of yet. Orin Reynoso RN/Surgical Dressing Maker
[2018-02-23] MEDS: HYDROMORPHONE 0.5 MG INJ IV ×2 (09:10→18:15)
[2018-02-23] MEDS: SODIUM CHLORIDE 0.9% 500 ML 250 ML IV (09:17)
--- NOTE | 2018-02-23 10:05 | PT.IPTN ---
Physical Therapy Treatment Note M3 PT-IP Subjective Start: 02/23/18 10:05 Freq: NEEDED Status: Active Protocol: Document 02/23/18 10:05 DLM (Rec: 02/23/18 10:06 DLM [id number]) Subjective Physical Therapy Visit Type Type Patient Unavailable Notes Pt out for testing this AM. Pt not feeling well this AM and not wanting to be up. Pt uses a 4WW at baseline.
--- NOTE | 2018-02-23 10:45 | PM.EVENT ---
Date Patient Seen: 02/23/18 Time Patient Seen: 07:30 SPOKE TO SON , LASHAE, TODAY OVER THE PHONE QUESTIONS AND CONCERNS ADDRESSED WILL GET LUNG BX AND MRI ABD THIS AM WELL PT/OT IVF BOLUS ORDERED FOR HYPOTENSION CARDIOVASCULAR: REG RATE; NO RUBS ADDITIONAL MANAGEMENT INDICATED
--- NOTE | 2018-02-23 14:44 | PT.IIE ---
Current Diagnoses Other nonspecific abnormal finding of lung field (02/23/18) Surgical History (Last Reviewed 02/23/18 @ 01:35 by MYESHA Ball) History of back surgery (Resolved Unknown) History of hip surgery (Resolved 2006) History of repair of ACL (Resolved Unknown) Hx of appendectomy (Resolved 1949) Hx of cholecystectomy (Resolved 1998) Hx of hysterectomy (Resolved 1967) Hx of tonsillectomy (Resolved ~1945) Medical History (Last Reviewed 02/23/18 @ 01:35 by MYESHA Ball) Epigastric pain (Acute) Polyneuropathy (Acute) Cervical spine disease (Chronic 1989) Chronic back pain (Chronic 1989) Depression (Chronic Unknown) Hiatal hernia (Chronic Unknown) Hyperlipemia (Chronic 2000) Hypertension (Chronic 2002) Hyperthyroidism (Chronic 1967) Lumbar disc disease (Chronic 2000) Osteoarthritis (Chronic 1997) Sleep apnea (Chronic 2001) Abnormal Pap smear of cervix (Resolved 1967) Cardiac arrhythmia (Resolved 2000) Fractures (Resolved Unknown) Measles (Resolved 1964) Mumps (Resolved 1965) Shoulder pain (Resolved 2015) Physical Therapy Inpatient Evaluation/Re-Eval M1 PT/OT-IP Prior Functional Status Start: 02/23/18 10:05 Freq: NEEDED Status: Active Protocol: Document 02/23/18 14:44 AB (Rec: 02/23/18 16:19 AB [id number]) Medical Review Prior Functional Status Medical History Reviewed Yes Communication able to make needs known Mobility and Gait stated that she is modified independent with all mobilities and ambulation using 4WW indoors/outdoors Social History Household Members none Living Arrangements Shelter Facility Number of Floors (Floors) One Floor Number of Stairs To Enter/Railing? pt lives at [facility]( independent livin meals provided) on the 1st floor Home Environment Standard Height Toilet Walk in Shower Home Equipment Four Wheel Walker Grab Bars Near Toilet Grab Bars In Shower Employment Status Retired Additional Social History Comment pt has a life alert M2 PT-IP Current Condition Start: 02/23/18 10:05 Freq: NEEDED Status: Active Protocol: Document 02/23/18 14:44 AB (Rec: 02/23/18 16:19 AB [id number]) Physical Therapy Current Condition Current Condition Evaluation Date 02/23/18 Treatment Diagnosis hypotension; generalized weakness Onset Date 02/23/18 Precautions Other Precautions hypotension; falls M3 PT-IP Subjective Start: 02/23/18 10:05 Freq: NEEDED Status: Active Protocol: Document 02/23/18 14:44 AB (Rec: 02/23/18 16:19 AB [id number]) Subjective Physical Therapy Visit Type Type Initial Evaluation Visit Start Time 14:44 Visit Stop Time 15:24 Total Visit Minutes 35 Number of ELECTRIC WELL LOGGING OPERATOR Visits 0 Physical Therapy Visit Comments Patient Comments pt agreeable to get up M4 PT-IP Mobility and Gait Start: 02/23/18 10:05 Freq: NEEDED Status: Active Protocol: Document 02/23/18 14:44 AB (Rec: 02/23/18 16:19 AB [id number]) PT-Bed Mobility Assessment Supine to Sit Supine to Sit Moderate Assistance 1 Person Assistance Head of Bed Elevated Sit to Supine Sit to Supine Maximum Assistance 1 Person Assistance Scooting Scooting to Edge of Bed Moderate Assistance PT-Transfer Assessment Sit to and From Stand Sit to and from Stand Moderate Assistance 1 Person Assistance Equipment Transfer Assistive Device Gait Belt Front Wheeled Walker Orthotic/Prosthetic Devices or Brace: No Transfers Transfer Destination Bedside Commode Transfer Technique ambulated using FWW Transfer Ability Level of Assist Moderate Assistance 1 Person Assistance Use of Upper Extremities Comments Mobility Comments BP monitored: BP in supine prior to mobility: 122/65. pt completed supine to sit mod A and cues with HOB elevated. BP sittin/67. pt was able to maintain sitting on EOB min A and cues. pt agreed to ambulate and midway ambulation, pt requested to use the toilet but due to O2 tube restriction, unable to ambulate all the way to the toilet but placed bedside commode close to pt. BP after ambualtion: 108/65. BP prior to standin/55. pt assist up from bedside commode requiring mod A and cues and ambulated back to bed ~ 10 ft using fWW mod A and cues. pt required max A for sit to supine. BP afterwards in supine: 128/63. informed nurse. Gait Assessment Gait Gait Assistance Required: Moderate Assistance 1 Person Assist Distance (Feet) 10 Assistive Devices Assistive Device Gait Belt Front Wheeled Walker Orthotic/Prosthetic Devices or Brace: No Gait Deviations General Gait Pattern Decreased Stride Length Decreased Feet Clearance Factors Limiting Gait Function Factors Limiting Gait Function Decreased Activity Tolerance Decreased Strength Difficulty Following Directions Poor Balance Poor Safety Awareness Comments Gait Comments pt ambulated in room using FWW mod A and cues. PT-Balance Assessment Sitting Balance and Reactions Static Sitting Balance Ability Good Dynamic Sitting Balance Ability Fair Standing Balance and Reactions Static Standing Balance Ability Poor Dynamic Standing Balance Ability Poor Device Used FWW M5 PT-IP Objective Assessments Start: 02/23/18 10:05 Freq: NEEDED Status: Active Protocol: Document 02/23/18 14:44 AB (Rec: 02/23/18 16:19 AB [id number]) Orientation Orientation/Cognition Level of Alertness Confusional State Orientation Name Safety Awareness Decreased Safety Awareness Gross Range of Motion Lower Extremity ROM Assessment Within Functional Limits Strength Lower Extremity Strength Assessment Bilaterally Impaired Knee 3+/5 M6 PT-IP Treatment Start: 02/23/18 10:05 Freq: NEEDED Status: Active Protocol: Document 02/23/18 14:44 AB (Rec: 02/23/18 16:19 AB [id number]) Physical Therapy Treatment Education Education Provided Safety M7 PT-IP Assessment and Plan Start: 02/23/18 10:05 Freq: NEEDED Status: Active Protocol: Document 02/23/18 14:44 AB (Rec: 02/23/18 16:19 AB [id number]) PT Summary Assessment and Plan Potential Rehabilitation Potential Fair Status of Condition at Evaluation Evolving Summary Impairments Pain ROM Strength Balance Coordination Sensation Tone Cognition Bed Mobility Transfers Gait Activity Tolerance Assessment Summary pt requiring mod A to max A with mobility and has decrease activity tolerance. pt will require SNF rehab to improve strength and mobility. Goals Bed Mobility Goal Standby Assistance Transfer Goal Standby Assistance Four Wheeled Walker Gait Goal Standby Assistance Four Wheel Walker Gait Distance 150 Days to Meet Goals 5 Frequency of Treatment Frequency Of Treatment Once a Day Treatment Plan Physical Therapy Treatment Plan Bed Mobility Training Transfer Training Gait Training Therapeutic Exercise Balance Retraining Post Op Education Discharge Planning Hot or Cold Pack Neuromuscular Re-ed Coordination Retraining Manual Therapy Other Recommendations and Next Treatment ambulation Focus Recommendations To Nursing Amount of Assist Needed 2 Person Assist Discharge Recommendations PT Discharge Recommendations SNF Rehab
[2018-02-23] MEDS: MIDAZOLAM 2 MG/2 ML VIAL 1 MG IV (15:09)
[2018-02-23] MEDS: fentaNYL 100 MCG/2 ML INJ 50 MCG IV (15:09)
[2018-02-23] MEDS: OXYCODONE IR 5 MG TABLET PO ×2 (16:01→23:31)
[2018-02-23] MEDS: GABAPENTIN 300 MG CAPSULE PO (21:18)
[2018-02-23] MEDS: TRAZODONE 100 MG TABLET 200 MG PO (21:18)
[2018-02-23] MEDS: DULOXETINE 30 MG CAPSULE PO (21:18)
[2018-02-23] MEDS: METOPROLOL IR 25 MG TABLET PO (21:19)
[2018-02-23] MEDS: SIMVASTATIN 20 MG TABLET PO (21:19)
--- NOTE | 2018-02-23 21:32 | PC.NURSE ---
PATIENT IS ON 2-3L NASAL CANNULA,CRACKLES HEARD,NS AT 100ML/HR. INFORMED ASBESTOS ABATEMENT WORKER.BRIONNA IQBAL, WILL LOOK INTO IT NO NEW ORDERS AT THIS TIME.
--- NOTE | 2018-02-23 23:47 | PC.NURSE ---
Patient is alert and oriented but seems depressed tonight. Breath sounds still with inspiratory crackles scattered throughout; no wheezes auscultated. Oxygen at 2L/min with sat of 94%; on continuous pulse oximetry. HRR and telemetry reading was SR. Complains of nausea so CUT OFF TENDER GLASS notified and will input order for Zofran after which patient will be medicated. BT present and abdomen is soft but tender in right UQ. States pain is 8/10 in abdomen and 8/10 chronic pain in back and left shoulder; medicated with Oxycodone. Is able to turn self in bed but states she can't get comfortable. Indwelling catheter is patent and urine is clinical research nurse jessy than last night. Had DARRIAN stockings off but requested they be removed as she is too hot. Fall risk score is high and bed alarm is activated.
[2018-02-24] VITALS (8 sets, daily range): BP systolic 112–126; BP diastolic 58–71; PULSE 69–79; RESP 16–18; TEMP 36.9–37; O2SAT 89–94
--- NOTE | 2018-02-24 | DI.MRI.S_ITS ---
PROCEDURE: MR ABDOME PELVIS WWO CON INDICATIONS: 77 year-old female with history of liver lesions on prior CT. TECHNIQUE: Coronal HASTE, axial 2D FLASH in- and [id number]; axial breath-hold T2 FSE; dynamic axial VIBE during IV gadolinium administration; postgadolinium coronal VIBE or 2D FLASH with fat saturation from the hepatic dome to the iliac crests. COMPARISON: [facility], CT, CT ABDOMEN PELVIS W CON, 02/15/2018, 11:19. [facility], CT, CT BIOPSY LUNG LT, 02/23/2018, 10:09. [facility], CT, CT CHEST W CON, 02/20/2018, 13:34. [facility], CT, CT ABDOMEN PELVIS W CON, 02/23/2018, 0:38. FINDINGS: Image quality: There is motion artifact limiting evaluation. Magnetic subtly artifact is also demonstrated T2 patient's surgical hardware in the lower thoracic spine and sacrum as well as the left hip. Patient terminated the study prior to acquisition of diffusion weighted images.. Lung bases: There is a lobulated nodule in the left lingula measuring up to 2.4 x 1.9 cm corresponding to the recently biopsied lesion. Nodular pleural thickening is also redemonstrated in the left lung base predominantly along the pericardium medially. Small bilateral pleural effusions are redemonstrated with associated compressive atelectasis in the lung bases. The heart is normal in size. Solid organs: The liver is enlarged with innumerable ovoid lesions of various sizes demonstrated throughout the right and left hepatic lobes. These demonstrate T1 hypointensity and T2 hyperintensity. Following contrast menstruation, there is peripheral enhancement demonstrated, more pronounced in the larger lesions. The largest mass lesion measures approximately 5.2 x 3.4 cm posteriorly in the right hepatic lobe. Findings most likely represent metastatic disease. Gallbladder is surgically absent. There is mild intra-and extra hepatic biliary ductal dilatation which may be associated with prior cholecystectomy. The pancreatic duct is normal in caliber. No discrete pancreatic mass identified. Spleen is normal in size. No adrenal nodules. Kidneys demonstrate no hydronephrosis. Nodes and vessels: No retroperitoneal or mesenteric lymphadenopathy by size criteria. The aorta is normal in caliber. Bowel and peritoneum: Visualized bowel loops are normal in caliber. There is a small amount of intraperitoneal free fluid. Pelvis: There is a Nelson catheter within a decompressed urinary bladder. Uterus is surgically absent. Bones and soft tissues: Evaluation of the osseous structures is limited T2 surgical hardware in the thoracic and lumbar spine, sacrum, and left hip. There are multiple abnormal enhancing lesions demonstrated in the bony pelvis as well as the proximal right femur compatible with metastatic disease. These include lesions in the right femoral neck. IMPRESSION: 1. Hepatomegaly with innumerable round mass lesions demonstrated throughout the liver with associated peripheral enhancement following contrast administration. The findings most likely represent metastatic disease. 2. Lobulated nodule in the lingula as well as nodular pleural thickening along the left lung base redemonstrated suspicious for malignancy. Recommend correlation with recent biopsy findings. 3. Multiple abnormal enhancing osseous lesions demonstrated, with evaluation limited due to magnetic susceptibly artifact from surgical hardware. These include lesions in the right femoral neck. Patient is at risk for pathologic fracture. 4. Small bilateral pleural effusions with associated compressive atelectasis. Dictated by: Andre Kahn M.D. on 02/24/2018 at 13:25 Approved by: Andre Kahn M.D. on 02/24/2018 at 13:46
--- NOTE | 2018-02-24 | DI.NM.S_ITS ---
PROCEDURE: NM BONE SCAN WHOLE BODY RADIOPHARMACEUTICAL: 22.1 mCi Tc-99m MDP IV. INDICATIONS: POSS BONE METS TECHNIQUE: Delayed whole-body scintigrams were obtained approximately 3-4 hours after intravenous injection of radiotracer. Anterior and posterior views were acquired from vertex to feet. COMPARISON: [facility], MR, MR ABDOMEN PELVIS WWO CON, 02/24/2018, 10:34. [facility], CT, CT CHEST W CON, 02/20/2018, 13:34. [facility], CT, CT ABDOMEN PELVIS W CON, 02/23/2018, 0:38. FINDINGS: There are foci of increased uptake in humeral heads bilaterally, the distal right humeral shaft, right femoral head and mid right femoral shaft, suspicious for metastasis. There is increased uptake in thoracic and lumbar spine. The comparison CT dated 02/20/2018 and 02/23/2018 demonstrated old compression fracture at T12 and L1, and extensive degenerative and postsurgical changes in thoracic and lumbar spine. Increased uptake in the cervical spine is likely degenerative in nature. Early metastatic disease to spine could be obscured. There are foci of increased periarticular activity involving shoulders bilaterally and both knees compatible with degenerative/arthritic changes. There is a left hip prosthesis. There is normal soft tissue uptake. There is a Nelson catheter. IMPRESSION: 1. There are foci of increased uptake in humeral heads bilaterally, the distal right humeral shaft, right femoral head and mid right femoral shaft, suspicious for metastasis. Recommend radiographic correlation. 2. Metastatic disease in spine could be obscured by compression fracture, extensive degenerative disc and facet disease, and post surgical changes as seen on CT. If clinical suspicion is high, radiographic followup is suggested. Dictated by: Jones Henry M.D. on 02/27/2018 at 13:29 Transcribed by: CHRISTIN on 02/27/2018 at 13:42 Approved by: Jones Henry M.D. on 02/27/2018 at 18:44
[2018-02-24] MEDS: ONDANSETRON 4 MG/2 ML INJ IV (00:18)
[2018-02-24 06:00] LABS: Alanine Aminotransferase 120 IU/L (9-52); Albumin Globulin Ratio 1.2 (1.0-2.8); Alkaline Phosphatase 223 U/L (38-126); Aspartate Aminotransferase 123 IU/L (14-36); BUN Creatinine Ratio 18.3 (6-22); Bilirubin Total 1.3 mg/dL (0.2-1.3); Blood Urea Nitrogen 11 mg/dL (7-17); Calcium 8.5 mg/dL (8.4-10.2); Carbon Dioxide 23 mmol/L (22-32); Chloride 106 mmol/L (98-107); Estimated Glomerular Filt Rate > 60.0 mL/min (>60); Globulin 2.5 g/dL (1.7-4.1); Glucose 77 mg/dL (80-110); HEMOLYSIS 17 (0-50); Magnesium 1.9 mg/dL (1.6-2.3); Phosphorous 1.5 mg/dL (2.8-4.1); Potassium 3.6 mmol/L (3.4-5.1); Sodium 137 mmol/L (137-145); Total Protein 5.5 g/dL (6.3-8.2)
[2018-02-24 06:02] LABS: Add Manual Diff / Slide Review NO; Eosinophils Percent Auto 2.1 % (2-4); Hematocrit 44.5 % (36-46); Hemoglobin 14.9 g/dL (12.0-16.0); Mean Corpuscular HGB Conc 33.6 % (30-36); Mean Corpuscular Hemoglobin 31.6 PG (26-34); Monocytes Percent Auto 11.9 % (3-14); Neutrophils Absolute Auto 6200 /uL (1500-7000); Platelet Count 273 X10^3/uL (150-400); Red Blood Cell Count 4.73 X10^6/uL (4.0-5.2); Red Cell Distribution Width 15.2 % (11.6-14.8); White Blood Cell Count 8.6 X10^3/uL (4.5-11.0)
[2018-02-24] MEDS: OXYCODONE IR 5 MG TABLET PO ×4 (06:09→22:47)
[2018-02-24] MEDS: SODIUM CHLORIDE 0.9% 1,000 ML 75 ML IV (09:37)
[2018-02-24] MEDS: DULOXETINE 30 MG CAPSULE PO ×2 (09:39→21:04)
[2018-02-24] MEDS: GABAPENTIN 300 MG CAPSULE PO ×2 (09:40→21:04)
[2018-02-24] MEDS: METOPROLOL IR 25 MG TABLET PO ×2 (09:40→21:04)
[2018-02-24] MEDS: LEVOTHYROXINE 100 MCG TABLET PO (09:41)
[2018-02-24] MEDS: LORazepam 2 MG/ML SYRINGE 0.5 MG IV (10:24)
--- NOTE | 2018-02-24 10:28 | PT.IPTN ---
Current Diagnoses Other nonspecific abnormal finding of lung field (02/23/18) Physical Therapy Treatment Note M2 PT-IP Current Condition Start: 02/23/18 10:05 Freq: NEEDED Status: Active Protocol: Document 02/23/18 14:44 AB (Rec: 02/23/18 16:19 AB [id number]) Physical Therapy Current Condition Current Condition Evaluation Date 02/23/18 Treatment Diagnosis hypotension; generalized weakness Onset Date 02/23/18 Precautions Other Precautions hypotension; falls M3 PT-IP Subjective Start: 02/23/18 10:05 Freq: NEEDED Status: Active Protocol: Document 02/24/18 10:25 CLB (Rec: 02/24/18 10:28 CLB [id number]) Subjective Physical Therapy Visit Type Type Patient Unavailable Notes Pt leaving room for testing.
[2018-02-24] MEDS: fentaNYL 12 MCG/PATCH TOP (12:45)
--- NOTE | 2018-02-24 13:49 | OT.IP.TRT ---
Current Diagnoses Other nonspecific abnormal finding of lung field (02/23/18) Occupational Therapy Treatment Note M3 OT- IP Subjective and Pain Start: 02/24/18 13:48 Freq: Status: Active Protocol: Document 02/24/18 13:48 [facility] (Rec: 02/24/18 13:49 [facility] [id number]) OT- Subjective Occupational Therapy Visit Type Type Patient Refusal Notes Pt states too tired and having abdominal pain of 8/10 and not wanting to do OT eval at this time. Notified nursing of pt's pain.
[2018-02-24] MEDS: HYDROMORPHONE 0.5 MG INJ IV (13:58)
--- NOTE | 2018-02-24 14:00 | PM.PN.1 ---
Subjective Date Patient Seen: 02/24/18 Time Patient Seen: 14:00 Interval history: NO SIGNIFICANT ISSUES OVERNIGHT DID NOT HAVE MUCH COMPLAINTS SPOKE TO FAMILY EXTENSIVELY REGARDING CASE Exam Vital Signs (past 8 hours): - 02/24/18 08:55 02/24/18 10:05 02/24/18 13:55 Temperature 98.5 F Pulse Rate 79 Respiratory Rate 16 Blood Pressure 126/71 Pulse Oximetry 93 93 93 Oxygen Delivery Method Room Air Oxygen Flow Rate 2 Narrative Exam Narrative: NO ACUTE DISTRESS. PATIENT IS ALERT ORIENTED X3. VITAL SIGNS STABLE HEAD ATRAUMATIC NORMOCEPHALIC NECK : SUPPLE WITHOUT ADENOPATHY NO CAROTID BRUITS EYE: EOMI, PERRLA, NORMAL CONJUNCTIVA; NO JAUNDICE CHEST: REGULAR RATE. NO RUBS. PMI IS NON DISPLACED. NO MURMURS; NORMAL S1-S2 PULMONARY: DECREASED BS OVER THE BASES. MILD BIBASILAR CRACKLES NOTED; NO INCREASED DULLNESS TO PERCUSSION ABDOMEN: SOFT. NONTENDER. NONDISTENDED. BOWEL SOUNDS ARE PRESENT IN ALL 4 QUADRANTS. NO MASS. EXTREMITIES: NO EDEMA.. NO CYANOSIS CLUBBING NOTED. NEURO: CRANIAL NERVES 2-12 GROSSLY INTACT. NO FOCAL NEUROLOGICAL DEFICIT NOTED. MSK: NORMAL RANGE OF MOTION FOR AGE. NO JOINT EFFUSION. SKIN: NORMAL FOR ETHNICITY; NO ECCHYMOSIS. NO LESION. GOOD TURGOR.; NO RASHES : NORMAL EXTERNAL GENITALIA. PSYCH : APPROPRIATE MOOD AND AFFECT. ALERT AWAKE ORIENTED X3 Objective Labs Result Diagrams: 02/24/18 05:05 02/24/18 05:05 Labs: Laboratory Results - last 24 hr 02/22/18 02/24/18 02/24/18 19:42 05:05 05:05 WBC 8.6 RBC 4.73 Hgb 14.9 Hct 44.5 MCV 94.0 MCH 31.6 MCHC 33.6 RDW 15.2 H Plt Count 273 Neut % (Auto) 72.0 Lymph % (Auto) 13.0 L [place] % (Auto) 11.9 Eos % (Auto) 2.1 Baso % (Auto) 1.0 Neut # (Auto) 6200 Sodium 135 L 137 Potassium 4.2 3.6 Chloride 101 106 Carbon Dioxide 22 23 BUN 20 H 11 Creatinine 0.90 0.60 Estimated GFR > 60.0 > 60.0 BUN/Creatinine Ratio 22.2 H 18.3 Glucose 169 H 77 L Calcium 9.4 8.5 Phosphorus 1.5 L Magnesium 1.9 Total Bilirubin 1.4 H 1.3 AST 170 H 123 H ALT 142 H 120 H Alkaline Phosphatase 254 H 223 H Troponin I < 0.012 Total Protein 6.5 5.5 L Albumin 3.7 3.0 L Globulin 2.8 2.5 Albumin/Globulin Ratio 1.3 1.2 Lipase 250 Assessment & Plan Plan: Assessment/Plan Narrative: IMPRESSION AND PLAN LUNG MASS; LIKELY MALIGNANT DISEASE; S/P BX; METASTASIS IS SUSPECTED TO THE LIVER AND THE BONE; MRI AND CT EVIDENCE; WILL GET BONE SCAN TODAY WELL; AWAITING PATH REPORT; REFER TO [facility] OUTPATIENT ; SPOKE TO PATIENT S SON EXTENSIVELY ABOUT THE CASE; QUESTIONS AND CONCERNS ADDRESSED TO HIS UNDERSTANDING HYPOTENSION; RESOLVED; MONITOR CLOSELY MILD DEMENTIA; AT BASELINE; FALL PRECAUTIONS; WATCH FOR HOSPITAL PSYCHOSIS TRANSAMINITIS; MONITOR FOR NOW HYPOPHOSP; WILL REPLACE ORALLY TODAY; REPEAT LABS IN AM PHYSICAL DECONDITIONING; PT/OT ; REFER TO SNF ON DISPOSITION POOR/ UNSTEADY GAIT; FALL RISK ; REFER TO SNF ; PT/OT PROGNOSIS IS POOR ADDITIONAL MANAGEMENT INDICATED CLINICALLY Quality VTE Deep Vein Thrombosis/Pulmonary Embolism Present on Admission: No
--- NOTE | 2018-02-24 14:36 | PT.IPTN ---
Current Diagnoses Other nonspecific abnormal finding of lung field (02/23/18) Physical Therapy Treatment Note M2 PT-IP Current Condition Start: 02/23/18 10:05 Freq: NEEDED Status: Active Protocol: Document 02/23/18 14:44 AB (Rec: 02/23/18 16:19 AB [id number]) Physical Therapy Current Condition Current Condition Evaluation Date 02/23/18 Treatment Diagnosis hypotension; generalized weakness Onset Date 02/23/18 Precautions Other Precautions hypotension; falls M3 PT-IP Subjective Start: 02/23/18 10:05 Freq: NEEDED Status: Active Protocol: Document 02/24/18 14:33 GGD (Rec: 02/24/18 14:35 GGD [id number]) Subjective Physical Therapy Visit Type Type Patient Refusal Notes Pt refused states she in to much pain, rates her pain 9/10 . Will see pt in AM. Focus Recommendations To Nursing Amount of Assist Needed 2 Person Assist Discharge Recommendations PT Discharge Recommendations SNF Rehab
--- NOTE | 2018-02-24 15:45 | PC.NURSE ---
Day Shift- Pt oriented to name, , February 2018, [facility] , I'm here for low blood pressure. Pt has minimal po intake, having ice water and 1 full bottle of ensure. Offered multiple items and pt refused, not right now. Pt given ativan IV prn 0.5mg at 1025 prior to leaving for MRI as pt stated feeling anxious and claustrophobic. Pt to MRI at 1030, fentanyl patch to left upper chest was removed and pt back into room at 1110. Update given to pt''s son Yoel via phone at 1100. Fentanyl patch replaced to left shoulder. Pt urinary output for shift was 275mls and jessy. Spoke with Dr. Gutierrez and new order rec'd for Normal Saline 2000mls at 125mls/hr then decrease rate back down to 75mls of Normal Saline. Plan for NM Whole body scan on Tuesday.
--- NOTE | 2018-02-24 15:55 | CM.DPC ---
DCP: continued: EMR reviewed. Is noted from Hand-Off paperwork from colleague that pt will be needing snf setting and that she had discussed same with pt's son Blaine. He is expected to arrive tomorrow from [place]. Will hope to see him for further discussion of issues and options. Note that pt currently lives at [facility] ;is failing in that setting. Put an initial inquiry to [facility] as this in the only snf in [place] and tomorrow is Tuesday so that there would be some idea if this would even be an option for pt once the choice list is discussed. P: follow as above.
[2018-02-24] MEDS: SODIUM CHLORIDE 0.9% 1,000 ML 125 ML IV (17:10)
[2018-02-24] MEDS: TRAZODONE 100 MG TABLET 200 MG PO (21:04)
[2018-02-24] MEDS: SIMVASTATIN 20 MG TABLET PO (21:04)
[2018-02-25] VITALS (8 sets, daily range): BP systolic 102–125; BP diastolic 47–67; PULSE 65–82; RESP 14–19; TEMP 36.4–37.3; O2SAT 91–95
--- NOTE | 2018-02-25 | DI.RAD.S_ITS ---
PROCEDURE: XR CHEST 1V INDICATIONS: COUGH TECHNIQUE: One view of the chest was acquired. COMPARISON: None. FINDINGS: Surgical changes and devices: Extensive fusion hardware throughout mid to lower thoracic spine and upper lumbar spine is seen. Lungs and pleura: Small to moderate left pleural effusion is noted. Left lower lobe atelectasis/infiltrate is also seen. Coarse interstitial lung markings are noted throughout bilateral lung brody which may indicate chronic interstitial lung parenchymal disease. Underlying superimposed pulmonary edema is also likely present. No gross pneumothorax. Mediastinum: Mediastinal contours appear normal. Heart size is enlarged. Bones and chest wall: No suspicious bony lesions. Overlying soft tissues appear unremarkable. IMPRESSION: Small to moderate left pleural effusion with left lower lobe atelectasis. Pulmonary edema. Cardiomegaly and congestion. No gross pneumothorax. Dictated by: Andrew Crawford M.D. on 02/26/2018 at 11:08 Approved by: Andrew Crawford M.D. on 02/26/2018 at 11:09
[2018-02-25] MEDS: HYDROMORPHONE 0.5 MG INJ IV ×3 (01:18→23:39)
--- NOTE | 2018-02-25 01:32 | PC.NURSE ---
Addendum entered by Rehana Helms R.N. 02/25/18 06:10: Slept well after receiving Dilaudid. Now states pain is not that bad although rates severity as 7/10 so medicated with Oxycodone and repositioned. Remains on 2L/min oxygen + CPAP with sat of 95. BP this morning good at 119/60. UOP still low at 175cc and is brown in color. Original Note: Patient is alert and oriented but seems flat and depressed. States she was not made aware of the MRI results; assured her MD will be in to talk with her in the a.m. Breath sounds with crackles in bilateral mid/lower lobes. On oxygen at 2L/min + CPAP with sat of 93-95%; is on continuous pulse oximetry. HRR; on telemetry and tele reading was SR w/BBB last check. Denies nausea tonight. Still having chronic left shoulder and back pain as well as pain in right UQ of abdomen; medicated with IV Dilaudid as too early to repeat the Oxycodone. Does have Fentanyl patch in place. Able to assist with repositioning in bed. Refuses to wear SCD's tonight. Fall risk score is high and bed alarm is activated. Reportedly gets up to BSC with walker and 1 assist.
[2018-02-25] MEDS: SODIUM CHLORIDE 0.9% 1,000 ML 125 ML IV (01:39)
[2018-02-25 05:58] LABS: Alanine Aminotransferase 114 IU/L (9-52); Albumin Globulin Ratio 1.3 (1.0-2.8); Alkaline Phosphatase 242 U/L (38-126); Aspartate Aminotransferase 115 IU/L (14-36); BUN Creatinine Ratio 12.9 (6-22); Bilirubin Total 1.5 mg/dL (0.2-1.3); Blood Urea Nitrogen 9 mg/dL (7-17); Calcium 8.2 mg/dL (8.4-10.2); Carbon Dioxide 23 mmol/L (22-32); Chloride 107 mmol/L (98-107); Estimated Glomerular Filt Rate > 60.0 mL/min (>60); Globulin 2.4 g/dL (1.7-4.1); Glucose 93 mg/dL (80-110); HEMOLYSIS < 15 (0-50); Magnesium 1.9 mg/dL (1.6-2.3); Phosphorous 1.2 mg/dL (2.8-4.1); Potassium 3.8 mmol/L (3.4-5.1); Sodium 139 mmol/L (137-145); Total Protein 5.4 g/dL (6.3-8.2)
[2018-02-25 05:59] LABS: Add Manual Diff / Slide Review NO; Basophils Percent Auto 0.8 % (0-2); Hematocrit 45.2 % (36-46); Hemoglobin 15.4 g/dL (12.0-16.0); Lymphocytes Percent Auto 14.9 % (25-40); Monocytes Percent Auto 13.7 % (3-14); Neutrophils Absolute Auto 6000 /uL (1500-7000); Neutrophils Percent Auto 68.6 % (50-75); Platelet Count 295 X10^3/uL (150-400); Red Blood Cell Count 4.81 X10^6/uL (4.0-5.2); Red Cell Distribution Width 15.4 % (11.6-14.8); White Blood Cell Count 8.7 X10^3/uL (4.5-11.0)
[2018-02-25] MEDS: OXYCODONE IR 5 MG TABLET PO ×3 (05:59→20:19)
[2018-02-25] MEDS: METOPROLOL IR 25 MG TABLET PO ×2 (09:06→20:20)
[2018-02-25] MEDS: LEVOTHYROXINE 100 MCG TABLET PO (09:06)
[2018-02-25] MEDS: GABAPENTIN 300 MG CAPSULE PO ×2 (09:06→20:20)
[2018-02-25] MEDS: DULOXETINE 30 MG CAPSULE PO ×2 (09:06→20:20)
[2018-02-25] MEDS: SODIUM CHLORIDE 0.9% 1,000 ML 75 ML IV ×2 (10:04→15:00)
--- NOTE | 2018-02-25 11:21 | P.PN_ITS ---
Subjective Date Patient Seen: 02/25/18 Time Patient Seen: 11:19 Interval history: NO CP/ OR SOB HAD LONG TALK WITH PATIENT QUESTIONS AND CONCERNS ADDRESSED SPOKE TO CM REGARDING DC PLANNING Exam Vital Signs (past 8 hours): - 02/25/18 06:00 02/25/18 08:25 Temperature 97.6 F 97.7 F Pulse Rate 73 79 Respiratory Rate 16 16 Blood Pressure 119/60 125/62 Pulse Oximetry 95 93 Oxygen Delivery Method Nasal Cannula,CPAP Oxygen Flow Rate 2 Narrative Exam Narrative: NO ACUTE DISTRESS. PATIENT IS ALERT ORIENTED X3. VITAL SIGNS STABLE HEAD ATRAUMATIC NORMOCEPHALIC NECK : SUPPLE WITHOUT ADENOPATHY NO CAROTID BRUITS EYE: EOMI, PERRLA, NORMAL CONJUNCTIVA; NO JAUNDICE CHEST: REGULAR RATE. NO RUBS. PMI IS NON DISPLACED. NO MURMURS; NORMAL S1- S2 PULMONARY: DECREASED BS OVER THE BASES. MILD BIBASILAR CRACKLES NOTED; NO INCREASED DULLNESS TO PERCUSSION ABDOMEN: SOFT. NONTENDER. NONDISTENDED. BOWEL SOUNDS ARE PRESENT IN ALL 4 QUADRANTS. NO MASS. EXTREMITIES: NO EDEMA.. NO CYANOSIS CLUBBING NOTED. NEURO: CRANIAL NERVES 2-12 GROSSLY INTACT. NO FOCAL NEUROLOGICAL DEFICIT NOTED. MSK: NORMAL RANGE OF MOTION FOR AGE. NO JOINT EFFUSION. SKIN: NORMAL FOR ETHNICITY; NO ECCHYMOSIS. NO LESION. GOOD TURGOR.; NO RASHES : NORMAL EXTERNAL GENITALIA. PSYCH : APPROPRIATE MOOD AND AFFECT. ALERT AWAKE ORIENTED X3 Objective Labs Result Diagrams: 02/25/18 05:20 02/25/18 05:20 Labs: Laboratory Results - last 24 hr 02/25/18 02/25/18 05:20 05:20 WBC 8.7 RBC 4.81 Hgb 15.4 Hct 45.2 MCV 94.0 MCH 32.0 MCHC 34.0 RDW 15.4 H Plt Count 295 Neut % (Auto) 68.6 Lymph % (Auto) 14.9 L [place] % (Auto) 13.7 Eos % (Auto) 2.0 Baso % (Auto) 0.8 Neut # (Auto) 6000 Sodium 139 Potassium 3.8 Chloride 107 Carbon Dioxide 23 BUN 9 Creatinine 0.70 Estimated GFR > 60.0 BUN/Creatinine Ratio 12.9 Glucose 93 Calcium 8.2 L Phosphorus 1.2 L Magnesium 1.9 Total Bilirubin 1.5 H AST 115 H ALT 114 H Alkaline Phosphatase 242 H Total Protein 5.4 L Albumin 3.0 L Globulin 2.4 Albumin/Globulin Ratio 1.3 Assessment & Plan Plan: Assessment/Plan Narrative: IMPRESSION AND PLAN LUNG MASS; LIKELY MALIGNANT DISEASE; S/P PERCTNS BX; METASTASIS IS SUSPECTED TO THE LIVER AND THE SKELETAL SYST; WILL GET BONE SCAN WHICH COULD BE DONE ON 02/27 PER NURSING; AWAITING PATH REPORT; REFER TO [facility] OUTPATIENT ; SPOKE TO PATIENT S SON EXTENSIVELY ABOUT THE CASE; QUESTIONS AND CONCERNS ADDRESSED TO HIS UNDERSTANDING HYPOTENSION; RESOLVED; MONITOR CLOSELY MILD DEMENTIA; AT BASELINE; FALL PRECAUTIONS; WATCH FOR HOSPITAL PSYCHOSIS TRANSAMINITIS; MONITOR FOR NOW HYPOPHOSP; WILL REPLACE ORALLY AND IV LEVEL DEC ONCE AGAIN; REPEAT LABS IN AM PHYSICAL DECONDITIONING; PT/OT ; REFER TO SNF ON DISPOSITION POOR/ UNSTEADY GAIT; FALL RISK ; REFER TO SNF ; PT/OT PROGNOSIS IS POOR VS GUARDED AT BEST ADDITIONAL MANAGEMENT INDICATED CLINICALLY Quality VTE Deep Vein Thrombosis/Pulmonary Embolism Present on Admission: No
[2018-02-25] MEDS: POTASSIUM PHOSPHATE 15 MMOL in DEXTROSE 5% IN WATER 250 ML 63.7 ML IV (13:23)
[2018-02-25] MEDS: SODIUM,POTASSIUM PHOSPHATES PACKET 2 EACH PO (13:24)
--- NOTE | 2018-02-25 13:31 | CM.DPC ---
DCP: continued: heard back from [facility] late yesterday afternoon in reponse to initial referral. [facility] noted that the full dx seemed to still be in process, that not enough was yet known re the POC going forward for the facility to give an acceptance but that they would be happy to review again on Tuesday 02/27. Updated Dr. Jha re this in Team Rounds this morning. EMR is reviewed now including the physician's progress note of late morning and his discussion with pt's son and pt. Son is not currently in the room. Spoke with TIERRA Tran. She confirms that a bone scan will be done Tuesday. Expect much will be known after this and a more specific d/c planning discussion can then be had with pt and her son. P: DCP team to continue to follow as noted.
--- NOTE | 2018-02-25 14:20 | PT.IPTN ---
Current Diagnoses Other nonspecific abnormal finding of lung field (02/23/18) Physical Therapy Treatment Note M2 PT-IP Current Condition Start: 02/23/18 10:05 Freq: NEEDED Status: Active Protocol: Document 02/23/18 14:44 AB (Rec: 02/23/18 16:19 AB [id number]) Physical Therapy Current Condition Current Condition Evaluation Date 02/23/18 Treatment Diagnosis hypotension; generalized weakness Onset Date 02/23/18 Precautions Other Precautions hypotension; falls M3 PT-IP Subjective Start: 02/23/18 10:05 Freq: NEEDED Status: Active Protocol: Document 02/25/18 14:20 GGD (Rec: 02/25/18 16:23 GGD [id number]) Subjective Physical Therapy Visit Type Type Patient Refusal Notes Pt having pain of 8/10 and refused pt. Will check on pt in AM. Focus Recommendations To Nursing Amount of Assist Needed 2 Person Assist Discharge Recommendations PT Discharge Recommendations SNF Rehab
--- NOTE | 2018-02-25 16:29 | PC.NURSE ---
Day Shift-Pt A&OX3, disoriented to date, forgetful, but able to make needs known using call light. Pt states her pharmacy is [facility]. Pt reports 8-9/10 pain to upper abd, chronic back, and left shoulder chronic pain. Pain decreases to 5-6/10 momentarily. Oxycodone po prn given X1and Dilaudid IV prn given X1. Denies nausea. Enc po intake with several options. Pt intake was ice water, ensure original vanilla drink, approx 75% for shift and 75% of schaffer popsicle. Encourage/monitor for Incentive spirometer use. Spoke with Dr. Hernandez around 1200 regarding daily weights and I/O balance. Crackles heard to mid/lower lobes, O2 sat remains 93% on RA, no edema, low urine marcos output. Plan for CXR, keep IVF at NS @ 75mls/hr and monitor.
[2018-02-25] MEDS: ONDANSETRON 4 MG/2 ML INJ IV ×2 (17:26→23:48)
--- NOTE | 2018-02-25 17:50 | OT.IP.EVAL ---
Current Diagnoses Other nonspecific abnormal finding of lung field (02/23/18) Past Medical History (Last Reviewed 02/23/18 @ 01:35 by MYESHA Ball) Epigastric pain (Acute) Polyneuropathy (Acute) Cervical spine disease (Chronic 1989) Chronic back pain (Chronic 1989) Depression (Chronic Unknown) Hiatal hernia (Chronic Unknown) Hyperlipemia (Chronic 2000) Hypertension (Chronic 2002) Hyperthyroidism (Chronic 1967) Lumbar disc disease (Chronic 2000) Osteoarthritis (Chronic 1997) Sleep apnea (Chronic 2001) Abnormal Pap smear of cervix (Resolved 1967) Cardiac arrhythmia (Resolved 2000) Fractures (Resolved Unknown) Measles (Resolved 1964) Mumps (Resolved 1965) Shoulder pain (Resolved 2015) Surgical History (Last Reviewed 02/23/18 @ 01:35 by MYESHA Ball) History of back surgery (Resolved Unknown) History of hip surgery (Resolved 2006) History of repair of ACL (Resolved Unknown) Hx of appendectomy (Resolved 1949) Hx of cholecystectomy (Resolved 1998) Hx of hysterectomy (Resolved 1967) Hx of tonsillectomy (Resolved ~194) Occupational Therapy Inpatient Evaluation/Re-Eval M1 PT/OT-IP Prior Functional Status Start: 02/23/18 10:05 Freq: NEEDED Status: Active Protocol: Document 02/23/18 14:44 AB (Rec: 02/23/18 16:19 AB [id number]) Medical Review Prior Functional Status Medical History Reviewed Yes Communication able to make needs known Mobility and Gait stated that she is modified independent with all mobilities and ambulation using 4WW indoors/outdoors Social History Household Members none Living Arrangements Snf Facility Number of Floors (Floors) One Floor Number of Stairs To Enter/Railing? pt lives at [facility]( independent livin meals provided) on the 1st floor Home Environment Standard Height Toilet Walk in Shower Home Equipment Four Wheel Walker Grab Bars Near Toilet Grab Bars In Shower Employment Status Retired Additional Social History Comment pt has a life alert M1 PT/OT-IP Prior Functional Status Start: 02/24/18 13:48 Freq: NEEDED Status: Active Protocol: Document 02/25/18 17:37 [facility] (Rec: 02/25/18 17:50 [facility] [id number]) Medical Review Prior Functional Status Medical History Reviewed Yes Communication able to make needs known Mobility and Gait stated that she is modified independent with all mobilities and ambulation using 4WW indoors/outdoors Activities of Daily Living and IADL's Pt states able to do all her ADL's. Social History Household Members none Living Arrangements Snf Facility Number of Floors (Floors) One Floor Number of Stairs To Enter/Railing? pt lives at [facility]( independent livin meals provided) on the 1st floor Home Environment Standard Height Toilet Walk in Shower Home Equipment Four Wheel Walker Grab Bars Near Toilet Grab Bars In Shower Employment Status Retired Additional Social History Comment pt has a life alert M2 OT-IP Current Condition Start: 02/24/18 13:48 Freq: Status: Active Protocol: Document 02/25/18 17:37 [facility] (Rec: 02/25/18 17:50 [facility] [id number]) Occupational Therapy Current Condition Current Condition Evaluation Date 02/25/18 Treatment Diagnosis Hypotension/weakness Diagnosis Onset Date 02/23/18 Post Operative Precautions Other Precautions hypotension; falls M3 OT- IP Subjective and Pain Start: 02/24/18 13:48 Freq: Status: Active Protocol: Document 02/25/18 17:37 [facility] (Rec: 02/25/18 17:50 [facility] [id number]) OT- Subjective Occupational Therapy Visit Type Type Initial Evaluation Visit Start Time 09:00 Visit Stop Time 09:40 Total Visit Minutes 40 Occupational Therapy Visit Comments Patient Comments Pt just agreeable to get up and use the bathroom. Patient/Caregiver Goals Pt wanting to go home, but realizes she is weak now and not able to be independent. OT Pain Assessment Pain When Pain Assessed At Rest Pain Present Pain Present Pain Reported Location Upper Abdomen Intensity 8 Scale Used Numeric (1 - 10) M4 OT- IP ADL's Start: 02/24/18 13:48 Freq: Status: Active Protocol: Document 02/25/18 17:37 [facility] (Rec: 02/25/18 17:50 [facility] [id number]) OT ADL-Dressing General Eval Lower Body Dressing Ability Maximum Assistance Areas Needing Assistance Socks Comments OT Dressing Comments At this time due to weakness, pt MAX for LB dressing needs. OT ADL-Toileting General Evaluation Toileting Ability Standby Assistance Comments OT Toileting Comments Pt needing assist for set-up , able to do all hygiene needs. Pt needing to rest as o2 level decrease to 88% on 2L. M6 OT- IP Functional Cognition Start: 02/24/18 13:48 Freq: Status: Active Protocol: Document 02/25/18 17:37 [facility] (Rec: 02/25/18 17:50 [facility] [id number]) Cognitive Factors Limiting Selfcare Function Cognitive Ability Level of Alertness Alert Patient Orientation Name Year Place Situation Attention Span Ability Capable of Focused Attention Capable of Sustained Attention Ability to Follow Commands Able to Follow Multi-Step Commands Memory Description Immediate Intact Mail Deliverer Intact Cognitive Comments Cognitive Assessment Comments Pt able to follow 2 step commands. OT- Vision and Hearing OT- Hearing Assessment OT- Hearing Assessment WFL M7 OT- IP Mobility and Balance Start: 02/24/18 13:48 Freq: Status: Active Protocol: Document 02/25/18 17:37 [facility] (Rec: 02/25/18 17:50 [facility] [id number]) OT- Bed Mobility Assessment Rolling Type of Rolling Roll to Right Level of Assistance Standby Assistance Supine to Sit Supine to Sit Assist Standby Assistance 1 Person Assistance Bedrails Sit to Supine Sit to Supine Assist Minimal Assistance 1 Person Assistance OT-Transfer Assessment Sit to and From Stand Sit to and from Stand Minimal Assistance Moderate Assistance 1 Person Assistance Transfers Transfer Ability Minimal Assistance 1 Person Assistance Technique Transfer Destination Bed Bedside Commode Transfer Technique Stand Step Pivot Devices Transfer Assistive Devices Gait Belt Front Wheeled Walker Comments Mobility Comments Pt MODA to stand when fatigued and from lower surfaces. Pt's O2 tends to drop even on 2L of o2 and needing cues to rest and take deep breaths in. OT- Balance Assessment Sitting Balance and Reactions Static Sitting Balance Ability Normal Dynamic Sitting Balance Ability Good Standing Balance and Reactions Static Standing Balance Ability Fair M8 OT- IP Objective Assessments Start: 02/24/18 13:48 Freq: Status: Active Protocol: Document 02/25/18 17:37 [facility] (Rec: 02/25/18 17:50 [facility] [id number]) OT Gross Range of Motion Upper Extremity Range of Motion Assessment Left Impaired OT Strength Comments Strength Comments BUE 4/5 M9 OT- IP Assessment and Plan Start: 02/24/18 13:48 Freq: Status: Active Protocol: Document 02/25/18 17:37 [facility] (Rec: 02/25/18 17:50 [facility] [id number]) OT Summary Assessment and Plan Potential Rehabilitation Potential Good Analytic Complexity at Evaluation Low Summary OT Impairments Pain Strength Balance Functional Mobility Grooming Dressing Toileting Bathing Toilet Transfers Shower Transfers Progress Towards Goals Slow Progress due to Pain Slow Progress due to Medical Issues Slow Progress due to Activity Tolerance Assessment Summary Pt low complexity is decreased strength, endurance, activity tolerance, and now needing one person assist for ADL and functional mobility needs. Pt would benefit form short skilled rehab prior to going home. Goals Grooming Goal Standby Assistance Dressing Goal Standby Assistance Toileting Goal Standby Assistance Bathing Goal Minimal Assistance Toilet Transfer Goal Standby Assistance Shower Transfer Goal Contact Guard Assistance Days to Meet Goals 7 Frequency of Treatment Frequency Of Treatment Once a Day Treatment Plan OT Treatment Plan ADL Training Functional Mobility Patient/Family Education Discharge Planning Other Treatment Recommendations and Next Shower Treatment Focus Discharge Recommendations OT Discharge Recommendations SNF Rehab
[2018-02-25] MEDS: TRAZODONE 100 MG TABLET 200 MG PO (20:20)
[2018-02-25] MEDS: SIMVASTATIN 20 MG TABLET PO (20:20)
[2018-02-25] MEDS: ALPRAZolam 0.25 MG TABLET 1 MG PO (21:53)
--- NOTE | 2018-02-25 21:59 | PC.NURSE ---
Assumed care of pt from outgoing shift at 15-00 this day. Pt awake and alert. Pt oriented but seems forgetful, such as- oriented to call light multiple times but pt does not use it to call. Pt instead calls for nurse/etcher hand. Pt states she already ate and does not want dinner. explained that pt didn't yet eat,, that that was lunch, but pt still refused. pt drank a couple of sips of her strawberry milkshake, and did drink another ensure (finished one total and 1/4 from day shift). Pt then stated she had to have a bm. Pt up to BSC with one assist. Pt did well with movement. Pt passed a lot of gas and some liquid stool. no evidence of c.diff. Pt states she hurts and her stomach was hard. pt stated that's where it is big and hard while pointing to her liver/area. Pt complains of crampy pain throughout upper abdomen. spoke with pt's son, hermelinda. discussed eating and memory issues with him he is worried if her memory is going that she is declining, and he is not happy that she isn't really eating anything and agrees that this is an issue. pt has decreased urine output, despite fluids. Pt drinks water when prompted. will continue to monitor.
[2018-02-26] VITALS (7 sets, daily range): BP systolic 115–138; BP diastolic 61–74; PULSE 73–84; RESP 15–22; TEMP 36.4–36.9; O2SAT 92–93
[2018-02-26] MEDS: LORazepam 2 MG/ML SYRINGE 0.5 MG IV (00:54)
--- NOTE | 2018-02-26 01:01 | PC.NURSE ---
Addendum entered by Rehana Helms R.N. 02/26/18 06:22: After receiving Ativan has been asleep rest of night. O2 sat remaining > 92% on 2L/min oxygen per NC. Have been repositioning q2h using Kelli bed tilt function. Original Note: Patient is alert and oriented but forgetful and restless tonight. At shift change was off oxygen and O2 sats at 88% so placed on CPAP + 2L oxygen and sat up to 94% but patient has been setting off oximeter alarm as not leaving CPAP on so now on NC 2L/min with sat at 93%. Breath sounds with crackles bilateral mid/lower lobes. HRR and telemetry reading was SR. Nauseated earlier and was medicated with Zofran with resolution of nausea. Complained of 8/10 back, left shoulder and right abdominal pain so was given IV Dilaudid and states pain is now 4/10. BT present. Abdomen is firm on right side and distended; tender to touch. Indwelling catheter is patent with poor UOP reported by evening RN. Can move self in bed but does request some assistance for positioning at times. Fall risk score is high and bed alarm is activated. Refusing DARRIAN stockings. Patient now requesting Melatonin and during conversation did admit to feeling anxious so medicated with Ativan.
[2018-02-26] MEDS: SODIUM CHLORIDE 0.9% 1,000 ML 75 ML IV (03:26)
[2018-02-26 05:57] LABS: Add Manual Diff / Slide Review NO; Eosinophils Percent Auto 2.9 % (2-4); Hematocrit 45.7 % (36-46); Hemoglobin 15.6 g/dL (12.0-16.0); Lymphocytes Percent Auto 15.6 % (25-40); Monocytes Percent Auto 14.2 % (3-14); Neutrophils Absolute Auto 7000 /uL (1500-7000); Neutrophils Percent Auto 66.3 % (50-75); Platelet Count 264 X10^3/uL (150-400); Red Blood Cell Count 4.86 X10^6/uL (4.0-5.2); Red Cell Distribution Width 15.3 % (11.6-14.8); White Blood Cell Count 10.5 X10^3/uL (4.5-11.0)
[2018-02-26 06:08] LABS: Alanine Aminotransferase 124 IU/L (9-52); Albumin Globulin Ratio 1.2 (1.0-2.8); Alkaline Phosphatase 232 U/L (38-126); Aspartate Aminotransferase 131 IU/L (14-36); Bilirubin Total 1.8 mg/dL (0.2-1.3); Blood Urea Nitrogen 9 mg/dL (7-17); Calcium 8.2 mg/dL (8.4-10.2); Carbon Dioxide 23 mmol/L (22-32); Chloride 105 mmol/L (98-107); Estimated Glomerular Filt Rate > 60.0 mL/min (>60); Globulin 2.5 g/dL (1.7-4.1); Glucose 106 mg/dL (80-110); HEMOLYSIS 30 (0-50); Potassium 3.9 mmol/L (3.4-5.1); Sodium 137 mmol/L (137-145); Total Protein 5.5 g/dL (6.3-8.2)
[2018-02-26 06:12] LABS: Magnesium 1.9 mg/dL (1.6-2.3); Phosphorous 1.6 mg/dL (2.8-4.1)
[2018-02-26] MEDS: SODIUM CHLORIDE 0.9% 500 ML 250 ML IV (06:56)
[2018-02-26] MEDS: OXYCODONE IR 5 MG TABLET PO ×2 (08:54→18:07)
[2018-02-26] MEDS: LEVOTHYROXINE 100 MCG TABLET PO (08:56)
[2018-02-26] MEDS: METOPROLOL IR 25 MG TABLET PO ×2 (08:56→21:31)
[2018-02-26] MEDS: DULOXETINE 30 MG CAPSULE PO ×2 (08:56→21:30)
[2018-02-26] MEDS: GABAPENTIN 300 MG CAPSULE PO ×2 (08:56→21:30)
[2018-02-26] MEDS: HYDROMORPHONE 0.5 MG INJ IV ×3 (10:11→22:00)
--- NOTE | 2018-02-26 10:27 | PM.PN.1 ---
Subjective Date Patient Seen: 02/26/18 Time Patient Seen: 10:28 Interval history: HAD AN UNEVENTFUL NIGHT NO CP/SOB FEELING WEAK AND TIRED Exam Vital Signs (past 8 hours): - 02/26/18 05:35 02/26/18 07:45 Temperature 97.6 F 98.4 F Pulse Rate 76 78 Respiratory Rate 18 18 Blood Pressure 115/62 122/61 Pulse Oximetry 93 93 Fraction of Inspired Oxygen 21 Oxygen Delivery Method Nasal Cannula Oxygen Flow Rate 2 Narrative Exam Narrative: NO ACUTE DISTRESS. PATIENT IS ALERT ORIENTED X3. VITAL SIGNS STABLE HEAD ATRAUMATIC NORMOCEPHALIC NECK : SUPPLE WITHOUT ADENOPATHY NO CAROTID BRUITS EYE: EOMI, PERRLA, NORMAL CONJUNCTIVA; NO JAUNDICE CHEST: REGULAR RATE. NO RUBS. PMI IS NON DISPLACED. NO MURMURS; NORMAL S1-S2 PULMONARY: DECREASED BS OVER THE BASES. MILD BIBASILAR CRACKLES NOTED; NO INCREASED DULLNESS TO PERCUSSION ABDOMEN: SOFT. NONTENDER. NONDISTENDED. BOWEL SOUNDS ARE PRESENT IN ALL 4 QUADRANTS. NO MASS. EXTREMITIES: NO EDEMA.. NO CYANOSIS CLUBBING NOTED. NEURO: CRANIAL NERVES 2-12 GROSSLY INTACT. NO FOCAL NEUROLOGICAL DEFICIT NOTED. MSK: NORMAL RANGE OF MOTION FOR AGE. NO JOINT EFFUSION. SKIN: NORMAL FOR ETHNICITY; NO ECCHYMOSIS. NO LESION. GOOD TURGOR.; NO RASHES : NORMAL EXTERNAL GENITALIA. PSYCH : APPROPRIATE MOOD AND AFFECT. ALERT AWAKE ORIENTED X3 Objective Labs Result Diagrams: 02/26/18 05:27 02/26/18 05:27 Labs: Laboratory Results - last 24 hr 02/26/18 02/26/18 02/26/18 05:27 05:27 05:27 WBC 10.5 RBC 4.86 Hgb 15.6 Hct 45.7 MCV 94.0 MCH 32.0 MCHC 34.0 RDW 15.3 H Plt Count 264 Neut % (Auto) 66.3 Lymph % (Auto) 15.6 L [place] % (Auto) 14.2 H Eos % (Auto) 2.9 Baso % (Auto) 1.0 Neut # (Auto) 7000 Sodium 137 Potassium 3.9 Chloride 105 Carbon Dioxide 23 BUN 9 Creatinine 0.60 Estimated GFR > 60.0 BUN/Creatinine Ratio 15.0 Glucose 106 Calcium 8.2 L Phosphorus 1.6 L Magnesium 1.9 Total Bilirubin 1.8 H AST 131 H ALT 124 H Alkaline Phosphatase 232 H Total Protein 5.5 L Albumin 3.0 L Globulin 2.5 Albumin/Globulin Ratio 1.2 Assessment & Plan Plan: Assessment/Plan Narrative: IMPRESSION AND PLAN LUNG MASS; LIKELY MALIGNANT DISEASE; S/P PERC BX; METASTASIS IS SUSPECTED TO THE LIVER AND THE SKELETAL SYST; WILL GET BONE SCAN WHICH COULD BE DONE ON 02/27 PER NURSING; AWAITING PATH REPORT; REFER TO [facility] OUTPATIENT ; SPOKE TO PATIENT S SON EXTENSIVELY ABOUT THE CASE; QUESTIONS AND CONCERNS ADDRESSED TO HIS UNDERSTANDING; PATIENT S SON TO [place] ON TUESDAY WELL HYPOTENSION; RESOLVED; MONITOR CLOSELY MILD DEMENTIA; AT BASELINE; FALL PRECAUTIONS; WATCH FOR HOSPITAL PSYCHOSIS TRANSAMINITIS; MONITOR FOR NOW; LIKELY DUE TO METASTATIC DISEASE. HYPOPHOSP; REPLACE ORALLY TODAY; REPEAT LABS IN AM TO FOLLOW PHYSICAL DECONDITIONING; PT/OT ; REFER TO SNF ON DISPOSITION POOR/ UNSTEADY GAIT; FALL RISK ; REFER TO SNF ; PT/OT PROGNOSIS IS POOR VS GUARDED AT BEST ADDITIONAL MANAGEMENT INDICATED CLINICALLY AWAITING POSS SNF PLACEMENT COMPUTER LANGUAGE CODER AWARE OF DC PLANNING Quality VTE Deep Vein Thrombosis/Pulmonary Embolism Present on Admission: No
--- NOTE | 2018-02-26 10:33 | P.PN_ITS ---
Subjective Date Patient Seen: 02/26/18 Time Patient Seen: 10:28 Interval history: HAD AN UNEVENTFUL NIGHT NO CP/SOB FEELING WEAK AND TIRED Exam Vital Signs (past 8 hours): - 02/26/18 05:35 02/26/18 07:45 Temperature 97.6 F 98.4 F Pulse Rate 76 78 Respiratory Rate 18 18 Blood Pressure 115/62 122/61 Pulse Oximetry 93 93 Fraction of Inspired Oxygen 21 Oxygen Delivery Method Nasal Cannula Oxygen Flow Rate 2 Narrative Exam Narrative: NO ACUTE DISTRESS. PATIENT IS ALERT ORIENTED X3. VITAL SIGNS STABLE HEAD ATRAUMATIC NORMOCEPHALIC NECK : SUPPLE WITHOUT ADENOPATHY NO CAROTID BRUITS EYE: EOMI, PERRLA, NORMAL CONJUNCTIVA; NO JAUNDICE CHEST: REGULAR RATE. NO RUBS. PMI IS NON DISPLACED. NO MURMURS; NORMAL S1- S2 PULMONARY: DECREASED BS OVER THE BASES. MILD BIBASILAR CRACKLES NOTED; NO INCREASED DULLNESS TO PERCUSSION ABDOMEN: SOFT. NONTENDER. NONDISTENDED. BOWEL SOUNDS ARE PRESENT IN ALL 4 QUADRANTS. NO MASS. EXTREMITIES: NO EDEMA.. NO CYANOSIS CLUBBING NOTED. NEURO: CRANIAL NERVES 2-12 GROSSLY INTACT. NO FOCAL NEUROLOGICAL DEFICIT NOTED. MSK: NORMAL RANGE OF MOTION FOR AGE. NO JOINT EFFUSION. SKIN: NORMAL FOR ETHNICITY; NO ECCHYMOSIS. NO LESION. GOOD TURGOR.; NO RASHES : NORMAL EXTERNAL GENITALIA. PSYCH : APPROPRIATE MOOD AND AFFECT. ALERT AWAKE ORIENTED X3 Objective Labs Result Diagrams: 02/26/18 05:27 02/26/18 05:27 Labs: Laboratory Results - last 24 hr 02/26/18 02/26/18 02/26/18 05:27 05:27 05:27 WBC 10.5 RBC 4.86 Hgb 15.6 Hct 45.7 MCV 94.0 MCH 32.0 MCHC 34.0 RDW 15.3 H Plt Count 264 Neut % (Auto) 66.3 Lymph % (Auto) 15.6 L [place] % (Auto) 14.2 H Eos % (Auto) 2.9 Baso % (Auto) 1.0 Neut # (Auto) 7000 Sodium 137 Potassium 3.9 Chloride 105 Carbon Dioxide 23 BUN 9 Creatinine 0.60 Estimated GFR > 60.0 BUN/Creatinine Ratio 15.0 Glucose 106 Calcium 8.2 L Phosphorus 1.6 L Magnesium 1.9 Total Bilirubin 1.8 H AST 131 H ALT 124 H Alkaline Phosphatase 232 H Total Protein 5.5 L Albumin 3.0 L Globulin 2.5 Albumin/Globulin Ratio 1.2 Assessment & Plan Plan: Assessment/Plan Narrative: IMPRESSION AND PLAN LUNG MASS; LIKELY MALIGNANT DISEASE; S/P PERC BX; METASTASIS IS SUSPECTED TO THE LIVER AND THE SKELETAL SYST; WILL GET BONE SCAN WHICH COULD BE DONE ON 02/27 PER NURSING; AWAITING PATH REPORT; REFER TO [facility] OUTPATIENT ; SPOKE TO PATIENT S SON EXTENSIVELY ABOUT THE CASE; QUESTIONS AND CONCERNS ADDRESSED TO HIS UNDERSTANDING; PATIENT S SON TO [place] ON TUESDAY WELL HYPOTENSION; RESOLVED; MONITOR CLOSELY MILD DEMENTIA; AT BASELINE; FALL PRECAUTIONS; WATCH FOR HOSPITAL PSYCHOSIS TRANSAMINITIS; MONITOR FOR NOW; LIKELY DUE TO METASTATIC DISEASE. HYPOPHOSP; REPLACE ORALLY TODAY; REPEAT LABS IN AM TO FOLLOW PHYSICAL DECONDITIONING; PT/OT ; REFER TO SNF ON DISPOSITION POOR/ UNSTEADY GAIT; FALL RISK ; REFER TO SNF ; PT/OT PROGNOSIS IS POOR VS GUARDED AT BEST ADDITIONAL MANAGEMENT INDICATED CLINICALLY AWAITING POSS SNF PLACEMENT TELEPHONE PLANT POWER OPERATOR AWARE OF DC PLANNING Quality VTE Deep Vein Thrombosis/Pulmonary Embolism Present on Admission: No
[2018-02-26] MEDS: PHOSPHA 250 NEUTRAL TABLET 500 MG PO (11:28)
[2018-02-26] MEDS: ALPRAZolam 0.25 MG TABLET 1 MG PO (11:28)
--- NOTE | 2018-02-26 15:58 | PT.IPTN ---
Current Diagnoses Other nonspecific abnormal finding of lung field (02/23/18) Physical Therapy Treatment Note M2 PT-IP Current Condition Start: 02/23/18 10:05 Freq: NEEDED Status: Active Protocol: Document 02/23/18 14:44 AB (Rec: 02/23/18 16:19 AB [id number]) Physical Therapy Current Condition Current Condition Evaluation Date 02/23/18 Treatment Diagnosis hypotension; generalized weakness Onset Date 02/23/18 Precautions Other Precautions hypotension; falls M3 PT-IP Subjective Start: 02/23/18 10:05 Freq: NEEDED Status: Active Protocol: Document 02/26/18 15:20 [facility] (Rec: 02/26/18 15:58 [facility] [id number]) Subjective Physical Therapy Visit Type Type Treatment Note Visit Start Time 15:20 Visit Stop Time 15:35 Total Visit Minutes 15 Notes Pt son in room during tx. Physical Therapy Visit Comments Patient Comments pt agreeable to do therapy. Therapy Pain Assessment Pain When Pain Assessed During Mobility Pain Present Pain Present Pain Reported M4 PT-IP Mobility and Gait Start: 02/23/18 10:05 Freq: NEEDED Status: Active Protocol: Document 02/26/18 15:20 [facility] (Rec: 02/26/18 15:58 [facility] [id number]) PT-Bed Mobility Assessment Supine to Sit Supine to Sit Minimal Assistance 1 Person Assistance Head of Bed Elevated Bedrails Scooting Scooting to Edge of Bed Contact Guard Assistance PT-Transfer Assessment Sit to and From Stand Sit to and from Stand Minimal Assistance 1 Person Assistance Use of Upper Extremities Equipment Transfer Assistive Device Gait Belt Front Wheeled Walker Transfers Transfer Destination Chair Transfer Technique Stand Step Pivot Transfer Ability Level of Assist Minimal Assistance Comments Mobility Comments Pt sitting BP 128/68, standing 119/61, sitting after transfer 121/64. Gait Assessment Gait Gait Assistance Required: Minimum Assistance 1 Person Assist Distance (Feet) 3 Able to Maintain Weight Bearing Status Yes During Gait Assistive Devices Assistive Device Gait Belt Front Wheeled Walker Gait Deviations General Gait Pattern Decreased Stride Length Decreased Feet Clearance Flexed Trunk Narrow Based Gait Factors Limiting Gait Function Factors Limiting Gait Function Decreased Activity Tolerance Decreased Strength Difficulty Following Directions Poor Balance Poor Safety Awareness Comments Gait Comments Pt feeling weak wanting to sit in chair after a few steps. Pt requiring Min A and assist with IV and O2 lines. M5 PT-IP Objective Assessments Start: 02/23/18 10:05 Freq: NEEDED Status: Active Protocol: Document 02/23/18 14:44 AB (Rec: 02/23/18 16:19 AB [id number]) Orientation Orientation/Cognition Level of Alertness Confusional State Orientation Name Safety Awareness Decreased Safety Awareness Gross Range of Motion Lower Extremity ROM Assessment Within Functional Limits Strength Lower Extremity Strength Assessment Bilaterally Impaired Knee 3+/5 M6 PT-IP Treatment Start: 02/23/18 10:05 Freq: NEEDED Status: Active Protocol: Document 02/23/18 14:44 AB (Rec: 02/23/18 16:19 AB [id number]) Physical Therapy Treatment Education Education Provided Safety M7 PT-IP Assessment and Plan Start: 02/23/18 10:05 Freq: NEEDED Status: Active Protocol: Document 02/26/18 15:20 [facility] (Rec: 02/26/18 15:58 [facility] [id number]) PT Summary Assessment and Plan Potential Rehabilitation Potential Fair Status of Condition at Evaluation Evolving Summary Impairments Pain ROM Strength Balance Coordination Sensation Tone Cognition Bed Mobility Transfers Gait Activity Tolerance Assessment Summary Pt required Min A for bed mobility and sit-stand. Pt performed sit<>stand x2 before transferring to chair. Pt reported feeling dizzy upon sitting, but was able to transfer safely to chair with Min A. Pt will require SNF rehab to improve strength and mobility. Goals Bed Mobility Goal Standby Assistance Transfer Goal Standby Assistance Four Wheeled Walker Gait Goal Standby Assistance Four Wheel Walker Gait Distance 150 Days to Meet Goals 5 Frequency of Treatment Frequency Of Treatment Once a Day Treatment Plan Physical Therapy Treatment Plan Bed Mobility Training Transfer Training Gait Training Therapeutic Exercise Balance Retraining Post Op Education Discharge Planning Hot or Cold Pack Neuromuscular Re-ed Coordination Retraining Manual Therapy Other Recommendations and Next Treatment ambulation Focus Recommendations To Nursing Amount of Assist Needed 1 Person Assist Discharge Recommendations PT Discharge Recommendations SNF Rehab
--- NOTE | 2018-02-26 16:05 | CM.DPC ---
DCP: continued: Blaine just now arrived from [place] and met briefly with him in his mother's room. He is staying at his mother's [address] apt: [phone]. Can also be reached on his cell. Dr. mUair Meyers is alerted and will see him later today as he can. Blaine has left now to go eat and will return to the hospital tomorrow.. Assured him that the DCP team will be following closely to help him and his mother with the d/c issues and options as the POC clarifies. Bone Scan is tomorrow...not sure what time yet.
--- NOTE | 2018-02-26 16:22 | PC.NURSE ---
Day Shift- Pt encouraged frequently to intake more po fluids. 500ml NS bolus was given after new PIV was placed. Pt stated liking cranberry juice. Pt intake from [id number] was 745ml consisting of milk, water and cranberry juice. She had 1/2 omelet for breakfast. Output from marcos catheter was 150mls of concentrated jessy urine at 1200. Update given to Dr. Campos at 1300 regarding these I/Os. For rest of shift, pt's marcos catheter output was 50mls. Pt's son Trina arrived at 1500, Lizzette with case management aware, messaged left with Dr. Campos that Blaine would like a plan of care update.
[2018-02-26] MEDS: FUROSEMIDE 40 MG/4 ML VIAL IV (18:15)
[2018-02-26] MEDS: SIMVASTATIN 20 MG TABLET PO (21:30)
[2018-02-26] MEDS: TRAZODONE 100 MG TABLET 200 MG PO (21:31)
[2018-02-27] VITALS (9 sets, daily range): BP systolic 93–120; BP diastolic 52–66; PULSE 72–81; RESP 16–21; TEMP 36.3–37.1; O2SAT 86–95
[2018-02-27] MEDS: SODIUM CHLORIDE 0.9% 1,000 ML 40 ML IV ×2 (02:02→12:44)
[2018-02-27] MEDS: OXYCODONE IR 5 MG TABLET PO ×2 (05:21→12:38)
[2018-02-27 05:26] LABS: Add Manual Diff / Slide Review NO; Basophils Percent Auto 0.7 % (0-2); Eosinophils Percent Auto 2.4 % (2-4); Hematocrit 46.3 % (36-46); Hemoglobin 15.5 g/dL (12.0-16.0); Lymphocytes Percent Auto 12.7 % (25-40); Mean Corpuscular HGB Conc 33.5 % (30-36); Mean Corpuscular Hemoglobin 31.6 PG (26-34); Mean Corpuscular Volume 94.3 fL (80-100); Monocytes Percent Auto 14.2 % (3-14); Neutrophils Absolute Auto 6900 /uL (1500-7000); Platelet Count 275 X10^3/uL (150-400); Red Blood Cell Count 4.91 X10^6/uL (4.0-5.2); Red Cell Distribution Width 15.1 % (11.6-14.8); White Blood Cell Count 9.9 X10^3/uL (4.5-11.0)
[2018-02-27 05:36] LABS: Alanine Aminotransferase 132 IU/L (9-52); Albumin Globulin Ratio 1.3 (1.0-2.8); Alkaline Phosphatase 236 U/L (38-126); Aspartate Aminotransferase 151 IU/L (14-36); Bilirubin Total 1.9 mg/dL (0.2-1.3); Blood Urea Nitrogen 9 mg/dL (7-17); Carbon Dioxide 25 mmol/L (22-32); Chloride 104 mmol/L (98-107); Estimated Glomerular Filt Rate > 60.0 mL/min (>60); Globulin 2.4 g/dL (1.7-4.1); Glucose 112 mg/dL (80-110); HEMOLYSIS < 15 (0-50); Potassium 3.8 mmol/L (3.4-5.1); Sodium 138 mmol/L (137-145); Total Protein 5.4 g/dL (6.3-8.2)
[2018-02-27 05:40] LABS: Magnesium 1.8 mg/dL (1.6-2.3); Phosphorous 1.6 mg/dL (2.8-4.1)
--- NOTE | 2018-02-27 05:54 | PC.NURSE ---
0520 Woke up & C/O pain, requested pain med. 5 mg. of Percolone admin. No C/O nausea, will cont. POC & monitor.
[2018-02-27] MEDS: HYDROMORPHONE 0.5 MG INJ IV ×3 (06:45→21:12)
--- NOTE | 2018-02-27 06:59 | PC.NURSE ---
Pt. reported the pill you gave did not helped that much. Requested Dilaudid 0.5 mg. IVP. administered, will monitor.
[2018-02-27] MEDS: LEVOTHYROXINE 100 MCG TABLET PO (08:26)
[2018-02-27] MEDS: DULOXETINE 30 MG CAPSULE PO ×2 (08:26→21:13)
[2018-02-27] MEDS: METOPROLOL IR 25 MG TABLET PO ×2 (08:26→21:14)
[2018-02-27] MEDS: GABAPENTIN 300 MG CAPSULE PO ×2 (08:26→21:13)
--- NOTE | 2018-02-27 12:00 | PT.IPTN ---
Current Diagnoses Other nonspecific abnormal finding of lung field (02/23/18) Physical Therapy Treatment Note M2 PT-IP Current Condition Start: 02/23/18 10:05 Freq: NEEDED Status: Active Protocol: Document 02/23/18 14:44 AB (Rec: 02/23/18 16:19 AB [id number]) Physical Therapy Current Condition Current Condition Evaluation Date 02/23/18 Treatment Diagnosis hypotension; generalized weakness Onset Date 02/23/18 Precautions Other Precautions hypotension; falls M3 PT-IP Subjective Start: 02/23/18 10:05 Freq: NEEDED Status: Active Protocol: Document 02/27/18 09:27 RS (Rec: 02/27/18 11:59 RS [id number]) Subjective Physical Therapy Visit Type Type Treatment Note Visit Start Time 09:03 Visit Stop Time 09:27 Total Visit Minutes 24 Physical Therapy Visit Comments Patient Comments Pt reports she just got a new cancer diagnosis yesterday, doesn't know what to do. Also describes being in pain everywhere. Therapy Pain Assessment Pain When Pain Assessed At Rest Pain Present Pain Present Pain Reported M4 PT-IP Mobility and Gait Start: 02/23/18 10:05 Freq: NEEDED Status: Active Protocol: Document 02/27/18 09:27 RS (Rec: 02/27/18 11:59 RS [id number]) PT-Transfer Assessment Sit to and From Stand Sit to and from Stand Minimal Assistance 1 Person Assistance Use of Upper Extremities Equipment Transfer Assistive Device Gait Belt Front Wheeled Walker Comments Mobility Comments Able to perform x3 sit<>stands with min A, SpO2 88-91% on 3L . Gait Assessment Comments Gait Comments not performed this session, pt declined due to fatigue, RN also requesting not to push pt too hard today. M5 PT-IP Objective Assessments Start: 02/23/18 10:05 Freq: NEEDED Status: Active Protocol: Document 02/23/18 14:44 AB (Rec: 02/23/18 16:19 AB [id number]) Orientation Orientation/Cognition Level of Alertness Confusional State Orientation Name Safety Awareness Decreased Safety Awareness Gross Range of Motion Lower Extremity ROM Assessment Within Functional Limits Strength Lower Extremity Strength Assessment Bilaterally Impaired Knee 3+/5 M6 PT-IP Treatment Start: 02/23/18 10:05 Freq: NEEDED Status: Active Protocol: Document 02/27/18 09:27 RS (Rec: 02/27/18 11:59 RS [id number]) Physical Therapy Treatment Other Treatments Other Treatment Performed chair exercises: heel raises, LAQ, iso hip abd/add M7 PT-IP Assessment and Plan Start: 02/23/18 10:05 Freq: NEEDED Status: Active Protocol: Document 02/27/18 09:27 RS (Rec: 02/27/18 11:59 [id number]) PT Summary Assessment and Plan Potential Rehabilitation Potential Fair Status of Condition at Evaluation Evolving Summary Impairments Pain ROM Strength Balance Coordination Sensation Tone Cognition Bed Mobility Transfers Gait Activity Tolerance Progress Towards Goals Slow Progress due to Pain Slow Progress due to Medical Issues Slow Progress due to Activity Tolerance Assessment Summary Pt continues to present with gross deconditioning and significantly impaired activity tolerance. Pt has potential for improvement pending oncology prognosis for new cancer dx w/ mets to liver and bones. Continue to recommend SNF for daily therapy once medically ready. Goals Bed Mobility Goal Standby Assistance Transfer Goal Standby Assistance Four Wheeled Walker Gait Goal Standby Assistance Four Wheel Walker Gait Distance 150 Days to Meet Goals 5 Frequency of Treatment Frequency Of Treatment Once a Day Treatment Plan Physical Therapy Treatment Plan Bed Mobility Training Transfer Training Gait Training Therapeutic Exercise Balance Retraining Post Op Education Discharge Planning Hot or Cold Pack Neuromuscular Re-ed Coordination Retraining Manual Therapy Other Recommendations and Next Treatment ambulation Focus Recommendations To Nursing Amount of Assist Needed 1 Person Assist Discharge Recommendations PT Discharge Recommendations SNF Rehab
[2018-02-27] MEDS: fentaNYL 12 MCG/PATCH TOP (12:39)
--- NOTE | 2018-02-27 12:59 | CM.DPC ---
DCP Cont: Spoke to patient's son today, Blaine. Patient had bone biopsy today, and is supposed to have oncology consult as well. Son is here from [facility], is staying in mom's apt at [facility]. He stated: I don't really know if the Cancer diagnosis has set in, with her, the first thing she asked for was a cigarette. Discussed [facility] care. Son is hopeful that she may be able to gain weight and get some rehab so she will be able to withstand treatment. Gave son a Medicare choice list. Stated, it would be nice if she could go to [facility], because it's here in town. Encouraged him to choose another facility, in case [facility] is too full for admissions. Son stated that he would look into other facilities as well and get back to us. He is aware that patient is not able to return to her apartment in her current state. P: DCP to continue to follow closely. intermediate is best option at this point. Will await oncology consult as well. Orin Reynoso RN/Lung Splitter
[2018-02-27] MEDS: OXYCODONE ER 10 MG TAB PO ×2 (14:05→21:13)
[2018-02-27] MEDS: fentaNYL 25 MCG/PATCH TOP (14:05)
[2018-02-27] MEDS: SODIUM CHLORIDE 0.9% 500 ML 1000 ML IV (15:09)
--- NOTE | 2018-02-27 16:12 | OT.IP.TRT ---
Current Diagnoses Other nonspecific abnormal finding of lung field (02/23/18) Occupational Therapy Treatment Note M2 OT-IP Current Condition Start: 02/24/18 13:48 Freq: Status: Active Protocol: Document 02/25/18 17:37 [facility] (Rec: 02/25/18 17:50 [facility] [id number]) Occupational Therapy Current Condition Current Condition Evaluation Date 02/25/18 Treatment Diagnosis Hypotension/weakness Diagnosis Onset Date 02/23/18 Post Operative Precautions Other Precautions hypotension; falls M3 OT- IP Subjective and Pain Start: 02/24/18 13:48 Freq: Status: Active Protocol: Document 02/27/18 16:09 [facility] (Rec: 02/27/18 16:12 [facility] [id number]) OT- Subjective Occupational Therapy Visit Type Type Administrative Note Notes Pt in with family. Pt just learned today of new cancer diagnosis. Therefore to check on pt tomorrow for OT.
--- NOTE | 2018-02-27 16:25 | P.PN_ITS ---
Subjective Date Patient Seen: 02/27/18 Interval history: Patient complains of pain in the shoulders back and hip. She seems withdrawn. She asked what is her diagnosis? She understands she has lung cancer. Her son was here and we reviewed her studies, recent bone scan. Her pathology is still pending. I have called the lab and am waiting for a response. Exam Vital Signs (past 8 hours): - 02/27/18 11:02 02/27/18 11:03 02/27/18 12:15 Temperature 97.8 F Pulse Rate 78 Respiratory Rate 20 Blood Pressure 114/60 Pulse Oximetry 86 L 92 93 02/27/18 16:07 Temperature 97.4 F L Pulse Rate 72 Respiratory Rate 20 Blood Pressure 120/66 Pulse Oximetry 95 Fraction of Inspired Oxygen 21 Oxygen Delivery Method Nasal Cannula Oxygen Flow Rate 3 Narrative Exam Narrative: Ill appearing female who seems depressed Lungs: Decreased breath sounds CV: RRR nl Sl S2 ABD: Soft/ non tender non distended Ext: no edema Objective Labs Result Diagrams: 02/27/18 05:00 02/27/18 05:00 Labs: Laboratory Results - last 24 hr 02/27/18 02/27/18 02/27/18 05:00 05:00 05:00 WBC 9.9 RBC 4.91 Hgb 15.5 Hct 46.3 H MCV 94.3 MCH 31.6 MCHC 33.5 RDW 15.1 H Plt Count 275 Neut % (Auto) 70.0 Lymph % (Auto) 12.7 L [place] % (Auto) 14.2 H Eos % (Auto) 2.4 Baso % (Auto) 0.7 Neut # (Auto) 6900 Sodium 138 Potassium 3.8 Chloride 104 Carbon Dioxide 25 BUN 9 Creatinine 0.60 Estimated GFR > 60.0 BUN/Creatinine Ratio 15.0 Glucose 112 H Calcium 8.0 L Phosphorus 1.6 L Magnesium 1.8 Total Bilirubin 1.9 H AST 151 H ALT 132 H Alkaline Phosphatase 236 H Total Protein 5.4 L Albumin 3.0 L Globulin 2.4 Albumin/Globulin Ratio 1.3 Assessment & Plan (1) Metastatic lung cancer (metastasis from lung to other site): Problem details: Still awaiting biopsy results. 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 Once biopsy results obtained will discuss with Oncology. Patient may be a candidate for palliative radiation to the femur Current visit: Yes Status: Acute (4) Hypotension: Problem details: Improved Qualifiers: Hypotension type: unspecified hypotension type Trimester: Qualified Code(s): I95.9 - Hypotension, unspecified Current visit: Yes Status: Acute Plan: Assessment/Plan Narrative: Her major issue is pain control. Will increase fentanyl, add oxycontin, and continue prn oxycodone May benefit from Hospice consult after biopsy results reviewed by Oncology Quality VTE Deep Vein Thrombosis/Pulmonary Embolism Present on Admission: No
[2018-02-27] MEDS: KCL 20 MEQ IN NS 1,000 ML 150 MEQ IV (17:58)
[2018-02-27] MEDS: TRAZODONE 100 MG TABLET 200 MG PO (21:14)
[2018-02-27] MEDS: SIMVASTATIN 20 MG TABLET PO (21:14)
[2018-02-28] VITALS (9 sets, daily range): BP systolic 99–122; BP diastolic 55–64; PULSE 77–97; RESP 13–18; TEMP 36.4–36.9; O2SAT 87–95
[2018-02-28] MEDS: KCL 20 MEQ IN NS 1,000 ML 150 MEQ IV ×3 (00:45→14:04)
--- NOTE | 2018-02-28 02:13 | PC.NURSE ---
Addendum entered by Rehana Helms R.N. 02/28/18 02:18: BP was also low at shift change with reading of 93/52; asymptomatic so will monitor. Original Note: Patient is alert and mostly oriented. Breath sounds with inspiratory crackles in left lobes and right LL anteriorly. Oxygen at 3.5L/min per NC with sat dropping down into low 80's as patient is mouth breather so NC placed in mouth while asleep but still 90-91% so oxygen increased to 4L/min. RR is shallow. HRR. BT present. Abdomen is slightly distended with firmness/tenderness over right quads. Indwelling catheter is patent with low UOP at this time; urine is dark jessy/brown. Is not moving herself while asleep so using Kelli tilt function to change pressure. At shift change reported back/left shoulder/right abdomen pain was 2/10; now asleep with FLACC of 0. Wearing bilateral DARRIAN stockings. Fall risk score is high and bed alarm is activated.
[2018-02-28 05:41] LABS: Add Manual Diff / Slide Review NO; Basophils Percent Auto 0.9 % (0-2); Hematocrit 47.5 % (36-46); Hemoglobin 15.4 g/dL (12.0-16.0); Lymphocytes Percent Auto 11.3 % (25-40); Mean Corpuscular HGB Conc 32.3 % (30-36); Mean Corpuscular Hemoglobin 30.8 PG (26-34); Mean Corpuscular Volume 95.3 fL (80-100); Monocytes Percent Auto 14.3 % (3-14); Neutrophils Absolute Auto 7100 /uL (1500-7000); Neutrophils Percent Auto 71.5 % (50-75); Platelet Count 256 X10^3/uL (150-400); Red Blood Cell Count 4.99 X10^6/uL (4.0-5.2); Red Cell Distribution Width 15.7 % (11.6-14.8); White Blood Cell Count 9.9 X10^3/uL (4.5-11.0)
[2018-02-28 05:49] LABS: INR 1.1 (0.9-1.3); Prothrombin Time 12.9 SECONDS (10.1-12.7)
[2018-02-28 05:51] LABS: Magnesium 1.7 mg/dL (1.6-2.3); Phosphorous 1.5 mg/dL (2.8-4.1)
[2018-02-28 05:52] LABS: Alanine Aminotransferase 130 IU/L (9-52); Albumin 3.1 g/dL (3.5-5.0); Albumin Globulin Ratio 1.2 (1.0-2.8); Alkaline Phosphatase 237 U/L (38-126); Aspartate Aminotransferase 143 IU/L (14-36); BUN Creatinine Ratio 12.9 (6-22); Bilirubin Total 2.1 mg/dL (0.2-1.3); Blood Urea Nitrogen 9 mg/dL (7-17); Calcium 8.1 mg/dL (8.4-10.2); Carbon Dioxide 25 mmol/L (22-32); Chloride 105 mmol/L (98-107); Estimated Glomerular Filt Rate > 60.0 mL/min (>60); Globulin 2.6 g/dL (1.7-4.1); Glucose 100 mg/dL (80-110); HEMOLYSIS < 15 (0-50); Potassium 4.6 mmol/L (3.4-5.1); Sodium 139 mmol/L (137-145); Total Protein 5.7 g/dL (6.3-8.2)
[2018-02-28] MEDS: OXYCODONE ER 10 MG TAB PO ×2 (07:53→20:40)
[2018-02-28] MEDS: GABAPENTIN 300 MG CAPSULE PO ×2 (07:53→20:36)
[2018-02-28] MEDS: DULOXETINE 30 MG CAPSULE PO ×2 (07:56→20:36)
[2018-02-28] MEDS: LEVOTHYROXINE 100 MCG TABLET PO (07:56)
[2018-02-28] MEDS: HYDROMORPHONE 0.5 MG INJ IV ×4 (08:45→19:14)
--- NOTE | 2018-02-28 10:12 | CM.DPC ---
Referral faxed to [facility] per Barbara
--- NOTE | 2018-02-28 10:13 | PC.NURSE ---
Day Shift- Spoke with Dr. Mauricio on unit at 0935 and made aware of night marcos catheter output of approx 100mls, Phos 1.5 and Magnesium 1.7. Also crackles to bilateral bases, no peripheral edema. Due to pathological fracture, clarified OOB movement, suggested bedrest until further orders. Dr. Mauricio agreed bedrest for now. will review labs, no new orders a this time. Spoke with Caryn with PT and made aware of bedrest for now also.
--- NOTE | 2018-02-28 10:41 | PT.IPTN ---
Current Diagnoses Malignant neoplasm of unspecified part of unspecified bronchus or lung (02/23/18) Secondary malignant neoplasm of liver and intrahepatic bile duct (02/23/18) Secondary malignant neoplasm of bone (02/23/18) Malignant (primary) neoplasm, unspecified (02/23/18) Hypotension, unspecified (02/23/18) Other nonspecific abnormal finding of lung field (02/23/18) Physical Therapy Treatment Note M2 PT-IP Current Condition Start: 02/23/18 10:05 Freq: NEEDED Status: Active Protocol: Document 02/23/18 14:44 AB (Rec: 02/23/18 16:19 AB [id number]) Physical Therapy Current Condition Current Condition Evaluation Date 02/23/18 Treatment Diagnosis hypotension; generalized weakness Onset Date 02/23/18 Precautions Other Precautions hypotension; falls M3 PT-IP Subjective Start: 02/23/18 10:05 Freq: NEEDED Status: Active Protocol: Document 02/28/18 09:59 [facility] (Rec: 02/28/18 10:41 [facility] [id number]) Subjective Physical Therapy Visit Type Type Patient Unavailable Notes RN stated pt has been put on bed rest, please hold today. M4 PT-IP Mobility and Gait Start: 02/23/18 10:05 Freq: NEEDED Status: Active Protocol: Document 02/27/18 09:27 RS (Rec: 02/27/18 11:59 RS [id number]) PT-Transfer Assessment Sit to and From Stand Sit to and from Stand Minimal Assistance 1 Person Assistance Use of Upper Extremities Equipment Transfer Assistive Device Gait Belt Front Wheeled Walker Comments Mobility Comments Able to perform x3 sit<>stands with min A, SpO2 88-91% on 3L . Gait Assessment Comments Gait Comments not performed this session, pt declined due to fatigue, RN also requesting not to push pt too hard today. M5 PT-IP Objective Assessments Start: 02/23/18 10:05 Freq: NEEDED Status: Active Protocol: Document 02/23/18 14:44 AB (Rec: 02/23/18 16:19 AB [id number]) Orientation Orientation/Cognition Level of Alertness Confusional State Orientation Name Safety Awareness Decreased Safety Awareness Gross Range of Motion Lower Extremity ROM Assessment Within Functional Limits Strength Lower Extremity Strength Assessment Bilaterally Impaired Knee 3+/5 M6 PT-IP Treatment Start: 02/23/18 10:05 Freq: NEEDED Status: Active Protocol: Document 02/27/18 09:27 RS (Rec: 02/27/18 11:59 RS [id number]) Physical Therapy Treatment Other Treatments Other Treatment Performed chair exercises: heel raises, LAQ, iso hip abd/add M7 PT-IP Assessment and Plan Start: 02/23/18 10:05 Freq: NEEDED Status: Active Protocol: Document 02/27/18 09:27 RS (Rec: 02/27/18 11:59 RS [id number]) PT Summary Assessment and Plan Potential Rehabilitation Potential Fair Status of Condition at Evaluation Evolving Summary Impairments Pain ROM Strength Balance Coordination Sensation Tone Cognition Bed Mobility Transfers Gait Activity Tolerance Progress Towards Goals Slow Progress due to Pain Slow Progress due to Medical Issues Slow Progress due to Activity Tolerance Assessment Summary Pt continues to present with gross deconditioning and significantly impaired activity tolerance. Pt has potential for improvement pending oncology prognosis for new cancer dx w/ mets to liver and bones. Continue to recommend SNF for daily therapy once medically ready. Goals Bed Mobility Goal Standby Assistance Transfer Goal Standby Assistance Four Wheeled Walker Gait Goal Standby Assistance Four Wheel Walker Gait Distance 150 Days to Meet Goals 5 Frequency of Treatment Frequency Of Treatment Once a Day Treatment Plan Physical Therapy Treatment Plan Bed Mobility Training Transfer Training Gait Training Therapeutic Exercise Balance Retraining Post Op Education Discharge Planning Hot or Cold Pack Neuromuscular Re-ed Coordination Retraining Manual Therapy Other Recommendations and Next Treatment ambulation Focus Recommendations To Nursing Amount of Assist Needed 1 Person Assist Discharge Recommendations PT Discharge Recommendations SNF Rehab
--- NOTE | 2018-02-28 10:41 | OT.IP.TRT ---
Current Diagnoses Malignant neoplasm of unspecified part of unspecified bronchus or lung (02/23/18) Secondary malignant neoplasm of liver and intrahepatic bile duct (02/23/18) Secondary malignant neoplasm of bone (02/23/18) Malignant (primary) neoplasm, unspecified (02/23/18) Hypotension, unspecified (02/23/18) Other nonspecific abnormal finding of lung field (02/23/18) Occupational Therapy Treatment Note M2 OT-IP Current Condition Start: 02/24/18 13:48 Freq: Status: Active Protocol: Document 02/25/18 17:37 [facility] (Rec: 02/25/18 17:50 [facility] [id number]) Occupational Therapy Current Condition Current Condition Evaluation Date 02/25/18 Treatment Diagnosis Hypotension/weakness Diagnosis Onset Date 02/23/18 Post Operative Precautions Other Precautions hypotension; falls M3 OT- IP Subjective and Pain Start: 02/24/18 13:48 Freq: Status: Active Protocol: Document 02/28/18 10:40 [facility] (Rec: 02/28/18 10:41 [facility] [id number]) OT- Subjective Occupational Therapy Visit Type Type Administrative Note Notes Per nursing due to possible pathological fractures, pt on bedrest, therefore not able to see pt for OT today.
--- NOTE | 2018-02-28 11:06 | CM.DPC ---
DCP Cont: Discussed case in team rounds. Patient has diagnosis of Cancer. Hospitalist stated that they are awaiting biopsy results as well, and oncology consult. Discussed plan, as palliative was mentioned. Let hospitalist know that patient lives at [facility], and can't return there due to complex needs. Mentioned that intermediate would be appropriate for patient. Son Blaine has been very involved in his mother's situation. Palliative care has not been brought up to him as of yet. Went ahead and faxed clinicals to [facility] regarding patient, will follow up with son on second choice of facilities. P: DCP to continue to follow. Message was left for son, Blaine, regarding second choice of skilled for patient. Orin Reynoso, RN/Patrol Commander
[2018-02-28] MEDS: OXYCODONE IR 5 MG TABLET PO (13:34)
--- NOTE | 2018-02-28 13:55 | PM.PN.1 ---
Subjective Date Patient Seen: 02/28/18 Interval history: Patient is awake and alert. She reports her pain is much better controlled today. She is on oxygen and has some shortness of breath. Her appetite remains poor. Patient's son is at the bedside. Discussed the biopsy findings and next steps. Exam Vital Signs (past 8 hours): - 02/28/18 07:52 02/28/18 07:55 02/28/18 08:20 Temperature 97.9 F Pulse Rate 84 Respiratory Rate Blood Pressure 99/62 Pulse Oximetry 92 87 L 02/28/18 08:22 02/28/18 13:53 Temperature 98.5 F Pulse Rate 86 Respiratory Rate 18 Blood Pressure 122/64 Pulse Oximetry 94 92 Fraction of Inspired Oxygen 21 Oxygen Delivery Method Nasal Cannula Oxygen Flow Rate 3 Narrative Exam Narrative: Ill appearing female in no obvious distress Lungs: Decreased breath sounds bilaterally Cardiac exam: Regular rate and rhythm normal S1 and S2 Abdomen: Soft and nontender Extremities: No edema Objective Labs Result Diagrams: 02/28/18 05:12 02/28/18 05:12 Labs: Laboratory Results - last 24 hr 02/28/18 02/28/18 02/28/18 05:12 05:12 05:12 WBC 9.9 RBC 4.99 Hgb 15.4 Hct 47.5 H MCV 95.3 MCH 30.8 MCHC 32.3 RDW 15.7 H Plt Count 256 Neut % (Auto) 71.5 Lymph % (Auto) 11.3 L [place] % (Auto) 14.3 H Eos % (Auto) 2.0 Baso % (Auto) 0.9 Neut # (Auto) 7100 H PT 12.9 H INR 1.1 Sodium Potassium Chloride Carbon Dioxide BUN Creatinine Estimated GFR BUN/Creatinine Ratio Glucose Calcium Phosphorus 1.5 L Magnesium 1.7 Total Bilirubin AST ALT Alkaline Phosphatase Total Protein Albumin Globulin Albumin/Globulin Ratio 02/28/18 05:12 WBC RBC Hgb Hct MCV MCH MCHC RDW Plt Count Neut % (Auto) Lymph % (Auto) [place] % (Auto) Eos % (Auto) Baso % (Auto) Neut # (Auto) PT INR Sodium 139 Potassium 4.6 Chloride 105 Carbon Dioxide 25 BUN 9 Creatinine 0.70 Estimated GFR > 60.0 BUN/Creatinine Ratio 12.9 Glucose 100 Calcium 8.1 L Phosphorus Magnesium Total Bilirubin 2.1 H AST 143 H ALT 130 H Alkaline Phosphatase 237 H Total Protein 5.7 L Albumin 3.1 L Globulin 2.6 Albumin/Globulin Ratio 1.2 Assessment & Plan (1) 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 Once biopsy results obtained will discuss with Oncology. Patient may be a candidate for palliative radiation to the femur. 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 Special stains have been applied. Will consult Oncology. Patient may benefit from palliative radiation given the possible impending fracture to the femur. Current visit: Yes Status: Acute (2) Liver metastasis: Problem details: As above Current visit: Yes Status: Acute Plan: Assessment/Plan Narrative: Patient was in independent living prior to this hospitalization. She is fairly debilitated. She has a poor appetite. Given her multiple meds and impending pathological fracture she will not be able to return to independent living. At this point will consult Oncology. We will make recommendations for next steps. Patient may be a candidate for a palliative care versus hospice depending on oncology consultation. This was discussed with both the patient and son who are aware of the plan. Quality VTE Deep Vein Thrombosis/Pulmonary Embolism Present on Admission: No
[2018-02-28] MEDS: FUROSEMIDE 20 MG/2 ML VIAL IV (15:32)
[2018-02-28] MEDS: POTASSIUM PHOSPHATE 15 MMOL in DEXTROSE 5% IN WATER 250 ML 63.75 ML IV (15:57)
--- NOTE | 2018-02-28 16:09 | CM.DPC ---
DCP Cont: Spoke to patient's son, Blaine. Made second choice of snf to [facility], [facility]. Next is [facility], last is [facility]. Went ahead and sent clinicals to [facility] in [facility] for now, clinicals already sent to [facility]. Faxed to apoorva Peralta at [facility]. p: DCP to continue to follow. First choice is [facility], faxed clinicals to them and [facility] in [facility]. Will need to follow up tomorrow regarding acceptance status. Orin Reynoso RN/Manager Appointment
--- NOTE | 2018-02-28 16:24 | PC.NURSE ---
Day Shift- Pt reported increase in pain today. Plan management plan discussed. PRN Dilaudid IV given X2 at 0845/1450. Oxycodone po prn given X1 at 1340. Left shoulder has fentanyl patch present. Spoke with Dr. Mauricio this AM, clarified OOB movement as pt dx with pathological fractures, suggested bedrest until ONC consult, Dr. Mauricio verbally agreed to pt being on bedrest. Pt repositioned in bed using pillows and bed tilt. Rec'd bed bath and shampoo cap this afternoon. Reported to Dr. Mauricio at 0935 this AM, Phos 1.[address] caba will review. Spoke with Dr. Mauricio at 1425 for update and made aware of BUE and BLE edema 3rd spacing. Also review of low morning labs as noted above. Dr. caba will review. New orders rec'd around 1500 in [place]. Pt's son Blaine at bedside for most of day.
--- NOTE | 2018-02-28 16:40 | PC.NURSE ---
Addendum entered by Kirstin Chapin R.N. 02/28/18 22:09: Pt resting quietly at this time. Relatively uneventful evening. IV changed to HL. Call light w/in reach, bed alarm on for pt. safety. Continue w/plan of care. Original Note: Pt resting quietly at this time. States discomfort in back and left shoulder 04/23. Lungs w/faint inspiratory wheezes noted. IV lasix given as per orders, potasium phosphate now infusing. IV siste RAC intact/patent. Nelson cath patent clear,jessy urine. Call light w/in reach, bed alarm on for pt safety.
--- NOTE | 2018-02-28 17:37 | P.CONONC_ITS ---
History of Present Illness - Data of Consult Consult date: 02/28/18 Requesting Physician: Dr. 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 The patient is somewhat vague historian. She relates a history of having had some left shoulder pain. She was apparently getting some steroid injections with helped a little bit. More recently, she has been developing some abdominal pain. She also has had poor appetite. She is not able to relate whether she has been losing weight or not. She apparently had what sounds like perhaps a syncopal episode and was hospitalized. A CT scan of the chest was done. It showed left lingular mass that measured 1.5 x 2.3 cm. She also had a CT scan of the abdomen and pelvis on the that she confirm the lingular mass as well as small bilateral effusions. The liver was enlarged in appeared nodular. An MRI of the abdomen showed that the liver was actually occupied by innumerable lesions that appeared consistent with metastatic disease. She had multiple osseous metastases as well. A bone scan likewise showed uptake within the humeral heads bilaterally the right femoral head and the right humeral shaft and right femoral mid shaft as well. She did have a CT- guided lung biopsy. 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 Additional stains are pending however. The patient lives independently. She does smoke about a half a pack of cigarettes daily. She does have 1 drink daily. She is retired RN. Her son is here with her tonight. Past medical history is notable for prior back surgery, hip replacement, she has had an appendectomy and a cholecystectomy and hysterectomy. She has a history of hypertension hyperlipidemia and hypothyroidism. Family history is negative for malignancy. CC: MYESHA Ball - Pain Details Pain Intensity: 2 Pain Scale Used: Numeric (1 - 10) Home Medications and Allergies Home Medications Medication Instructions Recorded Confirmed Type cyanocobalamin (vitamin B-12) 1,000 mcg PO QDAY #30 tab 06/10/17 02/25/18 History melatonin 9 mg PO HS #30 tab 18 02/25/18 History trazodone 100 mg tablet 200 mg PO HS 30 Days #60 tab 10/01/18 12/13/18 Rx levothyroxine 100 mcg tablet 100 mcg PO DAILY #90 tab 12/16/17 02/23/18 Rx duloxetine 30 mg capsule,delayed 30 mg PO BID #60 tab 12/26/17 02/23/18 Rx release metoprolol tartrate 25 mg tablet 25 mg PO BID #60 tab 12/26/17 02/23/18 Rx famotidine 20 mg tablet 20 mg PO BID #60 tab 01/06/18 02/23/18 Rx alprazolam 1 mg tablet 1 mg PO BIDP PRN #60 tab 01/13/18 02/23/18 Rx gabapentin 300 mg capsule 300 mg PO BID 30 Days #60 cap 01/13/18 02/23/18 Rx simvastatin 20 mg tablet 20 mg PO HS #30 tab 01/16/18 02/23/18 Rx Allergies Allergy/AdvReac Type Severity Reaction Status Date / Time meperidine [From DEMEROL] Allergy Unknown Verified 01/13/18 14:30 piroxicam [From FELDENE] Allergy Unknown Verified 01/13/18 14:30 Medical History - Medical, Surgical, Family History Medical History: Medical History (Last Reviewed 02/23/18 @ 01:35 by MYESHA Ball) Epigastric pain Polyneuropathy Cervical spine disease Onset Date: 1989 Chronic back pain Onset Date: 1989 Depression Onset Date: Hiatal hernia Onset Date: Hyperlipemia Onset Date: 2000 Hypertension Onset Date: 2002 Hyperthyroidism Onset Date: 1967 Lumbar disc disease Onset Date: 2000 Osteoarthritis Onset Date: 1997 Sleep apnea Onset Date: 2001 Abnormal Pap smear of cervix Onset Date: 1967 Cardiac arrhythmia Onset Date: 2000 Fractures Onset Date: Measles Onset Date: 1964 Mumps Onset Date: 1965 Shoulder pain Onset Date: 2015 Surgical History: Surgical History (Last Reviewed 02/23/18 @ 01:35 by MYESHA Ball) History of back surgery Onset Date: Unknown History of hip surgery Onset Date: 2006 History of repair of ACL Onset Date: Unknown Hx of appendectomy Onset Date: 1949 Hx of cholecystectomy Onset Date: 1998 Hx of hysterectomy Onset Date: 1967 Hx of tonsillectomy Onset Date: ~1944 Family History: Family History (Last Reviewed 02/23/18 @ 01:35 by MYESHA Ball) Brother Age: 65 Diabetes mellitus Methamphetamine addiction Father Hypertension High cholesterol Mother No problems noted. - Social History Smoking Status: Current every day smoker Alcohol Intake: current Alcohol Intake Frequency: 0-2 drinks per day Housing: assisted living facility Current Occupational Status: retired Review of Systems - Patient Self-Reported Symptoms SR Constitution: Weight loss/gain, Fatigue/Malaise SR respiratory issues: Shortness of breath SR Gastrointestinal issues: Poor or no appetite, Abdominal pain SR Neuro issues: Lightheaded/dizzy Constitutional: weight loss, poor state of general health, decreased activity level Ears, nose, mouth, throat: lightheadedness Respiratory: shortness of breath, no cough Gastrointestinal: change in appetite, abdominal pain, no vomiting, no jaundice, no constipation Exam - Constitutional positive thin, positive chronically ill appearing - Routine HEENT Exam Head: Present: normocephalic, atraumatic Eye: Present: EOMI, PERRL. Absent: conjunctival icterus, scleral injection ENT: Present: mucous membranes moist, oropharynx clear - Routine Neck Exam Present: supple. Absent: lymphadenopathy, thyromegaly - Routine Chest/Breast/Axilla Exam Chest wall exam standard: Absent: tenderness Axillae: Absent: lymphadenopathy - Routine Respiratory Exam Present: Clear to auscultation bilaterally. Absent: wheezes - Routine Cardiovascular Exam Present: RRR, S1, S2. Absent: murmur - Routine Abdominal Exam Present: soft, normoactive bowel sounds, tenderness Palpation/Percussion: Present: hepatomegaly Comments: Of the liver is enlarged and moderately tender. The liver edge extends down below the level of the umbilicus nearly to the pelvis. - Routine Extremities Exam Absent: cyanosis, clubbing, edema - Routine Skin Exam Present: intact. Absent: petechiae, rash - Routine Neurological Exam Present: alert, oriented X3. Absent: sensory deficit - Routine Psychiatric Exam Present: normal affect, normal thought process Results - Labs Laboratory Last Values WBC 9.9 X10^3/uL (4.5-11.0) 02/28/18 05:12 RBC 4.99 X10^6/uL (4.0-5.2) 02/28/18 05:12 Hgb 15.4 g/dL (12.0-16.0) 02/28/18 05:12 Hct 47.5 % (36-46) H 02/28/18 05:12 MCV 95.3 fL (80-100) 02/28/18 05:12 MCH 30.8 PG (26-34) 02/28/18 05:12 MCHC 32.3 % (30-36) 02/28/18 05:12 RDW 15.7 % (11.6-14.8) H 02/28/18 05:12 Plt Count 256 X10^3/uL (150-400) 02/28/18 05:12 Neut % (Auto) 71.5 % (50-75) 02/28/18 05:12 Lymph % (Auto) 11.3 % (25-40) L 02/28/18 05:12 [place] % (Auto) 14.3 % (3-14) H 02/28/18 05:12 Eos % (Auto) 2.0 % (2-4) 02/28/18 05:12 Baso % (Auto) 0.9 % (0-2) 02/28/18 05:12 Neut # (Auto) 7100 /uL (3336-3615) H 02/28/18 05:12 PT 12.9 SECONDS (10.1-12.7) H 02/28/18 05:12 INR 1.1 (0.9-1.3) 02/28/18 05:12 APTT 31 SECONDS (26.4-36.2) 02/23/18 04:57 Sodium 139 mmol/L (137-145) 02/28/18 05:12 Potassium 4.6 mmol/L (3.4-5.1) 02/28/18 05:12 Chloride 105 mmol/L (98-107) 02/28/18 05:12 Carbon Dioxide 25 mmol/L (22-32) 02/28/18 05:12 BUN 9 mg/dL (7-17) 02/28/18 05:12 Creatinine 0.70 mg/dL (0.52-1.04) 02/28/18 05:12 Estimated GFR > 60.0 mL/min (>60) 02/28/18 05:12 BUN/Creatinine Ratio 12.9 (6-22) 02/28/18 05:12 Glucose 100 mg/dL (80-110) 02/28/18 05:12 Lactate 0.8 mmol/L (0.7-2.1) 02/22/18 20:29 Calcium 8.1 mg/dL (8.4-10.2) L 02/28/18 05:12 Phosphorus 1.5 mg/dL (2.8-4.1) L 02/28/18 05:12 Magnesium 1.7 mg/dL (1.6-2.3) 02/28/18 05:12 Iron 52 ug/dL (37-170) 02/23/18 04:57 TIBC 251 ug/dL (265-497) L 02/23/18 04:57 % Saturation 21 % (15-50) 02/23/18 04:57 Transferrin 168 mg/dL (206-381) L 02/23/18 04:57 Ferritin 67.1 ng/mL (11.1-264) 02/23/18 04:57 Total Bilirubin 2.1 mg/dL (0.2-1.3) H 02/28/18 05:12 Conjugated Bilirubin 0.0 md/dL (0.0-0.3) 02/23/18 04:57 Unconjugated Bilirubin 0.2 mg/dL (0.0-1.1) 02/23/18 04:57 AST 143 IU/L (14-36) H 02/28/18 05:12 ALT 130 IU/L (9-52) H 02/28/18 05:12 Alkaline Phosphatase 237 U/L (38-126) H 02/28/18 05:12 Troponin I < 0.012 ng/mL (0.01-0.034) 02/22/18 19:42 Total Protein 5.7 g/dL (6.3-8.2) L 02/28/18 05:12 Albumin 3.1 g/dL (3.5-5.0) L 02/28/18 05:12 Globulin 2.6 g/dL (1.7-4.1) 02/28/18 05:12 Albumin/Globulin Ratio 1.2 (1.0-2.8) 02/28/18 05:12 Lipase 250 U/L (23-300) 02/22/18 19:42 Urine Color Yellow 02/23/18 Unknown Urine Appearance Clear 02/23/18 Unknown Urine pH 5.0 (4.5-8.0) 02/23/18 Unknown Ur Specific [place] 1.010 (1.000-1.035) 02/23/18 Unknown Urine Protein Negative (Negative) 02/23/18 Unknown Urine Glucose (UA) Trace g/dL (Normal) 02/23/18 Unknown Urine Ketones Negative (NEGATIVE) 02/23/18 Unknown Urine Occult Blood Negative (Negative) 02/23/18 Unknown Urine Nitrate Negative (Negative) 02/23/18 Unknown Urine Bilirubin Negative (NEGATIVE) 02/23/18 Unknown Urine Urobilinogen 1.0 E.U./dL (0.2) 02/23/18 Unknown Ur Leukocyte Esterase Negative (NEGATIVE) 02/23/18 Unknown Urine RBC None seen (0-5/HPF) 02/23/18 Unknown Urine WBC None seen (0-5/HPF) 02/23/18 Unknown Urine Bacteria None seen (None) 02/23/18 Unknown Ur Culture Indicated? 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 She has extensive liver metastasis as well as bony involvement. Her bilirubin is mildly elevated at 2.1. Her performance status is likely 3-4. Her appetite has been poor although she is not able to quantify weight loss. I explained that small cell lung cancer is typically very chemo sensitive. Response rates for first-line therapy on the order about 70% or so. However, the disease invariably returns. In patients who do respond to chemotherapy, other symptoms and quality of life can improve, often dramatically. However, her performance status is marginal. Her risk for chemotherapy is higher than average. Typical side effects would include alopecia, nausea and vomiting, fatigue, risk for cytopenias and risk for infection. I doubt that she would tolerate cis-[place] but she could potentially tolerate carboplatin with etoposide. Recent studies have demonstrated improvement with the inclusion of immunotherapy with first-line [place]-based chemotherapy. However given her marginal performance status I do not think that this is an option in her case. If we were to pursue chemotherapy, I think would be important to start as soon as can be practically arranged. It is likely that her condition will continue to deteriorate as time goes on. This will make it even more difficult to treat later on. We also talked about the possibility of supportive care or hospice. For patients who do not wish to undergo the rigors of chemotherapy, hospice can focus on making remaining time as good as it can be. She does have extensive bony metastasis as well as the risk for pathologic fracture. Typically in this setting, we would start with orthopedic consultation for potential pinning followed by palliative radiation. However, given the extent of her liver metastasis, it is doubtful that she would be able to complete those procedures before becoming more gravely ill due to progression in the liver. Responses to chemotherapy and small cell lung cancer can be quite dramatic and if she does wish to pursue therapy, I recommend starting with chemotherapy with the potential to give radiation between cycles if needed. The patient and her son were some time to consider her options and make a final decision but at this point she is leaning towards giving chemotherapy a try. She does understand that this has a potential for significant toxicity. However if she were to respond, her survival and quality of life could potentially be improved. She does understand that this is not a curative therapy. I will follow up with her tomorrow. If she does elect to go ahead with chemotherapy will try and arrange that as soon as can be practically arranged. If she elects not to go ahead with chemotherapy, we will make arrangements for hospice consult. Current visit: Yes Status: Acute (2) Liver metastasis Problem details: As above Current visit: Yes Status: Acute
[2018-02-28] MEDS: TRAZODONE 100 MG TABLET 200 MG PO (20:34)
[2018-02-28] MEDS: METOPROLOL IR 25 MG TABLET PO (20:35)
[2018-02-28] MEDS: SIMVASTATIN 20 MG TABLET PO (20:35)
[2018-02-28] MEDS: SODIUM CHLORIDE 0.9% FLUSH 10 ML IV (20:35)
[2018-03-01] VITALS (12 sets, daily range): BP systolic 100–120; BP diastolic 56–65; PULSE 70–87; RESP 16–19; TEMP 36.3–37.2; O2SAT 4–94
[2018-03-01] MEDS: OXYCODONE IR 5 MG TABLET PO ×2 (01:43→18:08)
--- NOTE | 2018-03-01 02:04 | PC.NURSE ---
Addendum entered by Rehana Helms R.N. 03/01/18 06:56: Complains of 4/10 back and abdomen pain. Medicated with Dilaudid as too early to give po Oxycodone IR and patient requests Dilaudid. Had 200cc UOP this shift. O2 sat currently 94%. Original Note: Patient is mostly alert and oriented but with very flat affect. Breath sounds still with inspiratory crackles in left lobes and right LL; more prominent in left lobes. Oxygen at 4L/min with NC in mouth while asleep as is a mouth breather and sats otherwise drop to 86%; currently at 92%. HRR. Denies nausea. BT present. Abdomen is distended and firm across mid/lower abdomen. Does complain of 4/10 pain in abdomen so medicated with oxycodone. Needing to be repositioned q2h as is not turning herself but will assist. Indwelling catheter is patent; urine dark jessy/brown and has had persistently low UOP's except when receiving Lasix. Wearing bilateral DARRIAN stockings. Fall risk score is high and bed alarm is activated.
[2018-03-01 05:27] LABS: Add Manual Diff / Slide Review NO; Basophils Percent Auto 0.8 % (0-2); Eosinophils Percent Auto 1.8 % (2-4); Hematocrit 44.1 % (36-46); Hemoglobin 14.7 g/dL (12.0-16.0); Mean Corpuscular HGB Conc 33.4 % (30-36); Mean Corpuscular Hemoglobin 31.5 PG (26-34); Mean Corpuscular Volume 94.3 fL (80-100); Monocytes Percent Auto 16.3 % (3-14); Neutrophils Absolute Auto 6800 /uL (1500-7000); Neutrophils Percent Auto 69.1 % (50-75); Platelet Count 267 X10^3/uL (150-400); Red Blood Cell Count 4.68 X10^6/uL (4.0-5.2); Red Cell Distribution Width 15.5 % (11.6-14.8); White Blood Cell Count 9.8 X10^3/uL (4.5-11.0)
[2018-03-01] MEDS: HYDROMORPHONE 0.5 MG INJ IV ×2 (06:51→13:38)
[2018-03-01] MEDS: SODIUM CHLORIDE 0.9% FLUSH 10 ML IV ×3 (06:51→21:46)
[2018-03-01] MEDS: OXYCODONE ER 10 MG TAB PO (08:17)
[2018-03-01] MEDS: LORazepam 2 MG/ML SYRINGE 0.5 MG IV (08:17)
[2018-03-01] MEDS: GABAPENTIN 300 MG CAPSULE PO ×2 (08:28→21:45)
[2018-03-01] MEDS: LEVOTHYROXINE 100 MCG TABLET PO (08:28)
[2018-03-01] MEDS: DULOXETINE 30 MG CAPSULE PO ×2 (08:28→21:45)
[2018-03-01] MEDS: METOPROLOL IR 25 MG TABLET PO ×2 (08:28→21:45)
--- NOTE | 2018-03-01 10:00 | ONC.NAV ---
Description: Care Coordination Activity: This MACHINIST TOOL AND DIE met with both pt and her son, Blaine, per Dr. Fay's request. Pt has been inpt for the last week, was recently found to have a new diagnosis of what is thought to be non-small cell lung cancer, widely metastasized to the bone and liver. She presents as extremely frail, confused and actively hallucinating throughout this visit. Pt is unable to follow this goals conversation, and would frequently make mention of objects that were not present, thought she was petting a dog at one point, and kept telling her son that he was looking at her but not talking about her. Discussed the two treatment paths of pursuing chemotherapy vs. hospice care. [facility] She is unable to bear any weight on her left leg, due to the high risk of pathological fracture. Her son lives in [place], and there is no support system for her except for the staff at [facility], however pt mostly spends time alone in her room, or outside smoking and feeding the squirrels. Pt was smoking 1/2 of a pack of cigarettes per day before this hospitalization, which son states is part of her quality of life. Pt's main goal: be able to return to her apartment at [facility] for a week or a month, hopefully with the same level of functioning she had a year ago. Discussed the likelihood of functional improvement being not likely. Dr. Fay had explained to them yesterday that he has seen some patients have a radical improvement in functioning with small cell lung cancer in the past, however the pt/son didn't realize that the side-effects of chemotherapy, including the impact on memory and cognition, will put her further at risk in trying to manage on an outpatient basis. Discussed hospice and what to expect with care, whether in be in a SNF or at [facility], however, she would need full-time caregiving in place at [facility], which would not be financially feasible, as well as someone to help her with care coordination, transportation, etc. Son is leaning towards hospice as the level of care that makes the most sense for her at this time, especially with her need for intense symptom management for comfort. He feels that the pain medications have significantly impacted her mentation today, and wants to speak with his mother more about this in a few hours, hoping she will be more clear to make some decisions. This MACHINIST TOOL AND DIE shared with the son that we in oncology will be coordinating with his care team on the floor to move forward with whatever path they decide. He will hold on the Hospice informational visit until he sorts out some of these caregiving and logistical concerns that will need to happen either way. Will update Lizzette in care management of this plan.
--- NOTE | 2018-03-01 10:17 | OT.IP.TRT ---
Current Diagnoses Malignant neoplasm of unspecified part of unspecified bronchus or lung (02/23/18) Secondary malignant neoplasm of liver and intrahepatic bile duct (02/23/18) Secondary malignant neoplasm of bone (02/23/18) Malignant (primary) neoplasm, unspecified (02/23/18) Hypotension, unspecified (02/23/18) Other nonspecific abnormal finding of lung field (02/23/18) Occupational Therapy Treatment Note M2 OT-IP Current Condition Start: 02/24/18 13:48 Freq: Status: Active Protocol: Document 02/25/18 17:37 [facility] (Rec: 02/25/18 17:50 [facility] [id number]) Occupational Therapy Current Condition Current Condition Evaluation Date 02/25/18 Treatment Diagnosis Hypotension/weakness Diagnosis Onset Date 02/23/18 Post Operative Precautions Other Precautions hypotension; falls M3 OT- IP Subjective and Pain Start: 02/24/18 13:48 Freq: Status: Active Protocol: Document 03/01/18 10:15 [facility] (Rec: 03/01/18 10:17 [facility] [id number]) OT- Subjective Occupational Therapy Visit Type Type Administrative Note Notes Pt discharged from OT services at this time due to concern for impending pathological fracture per physician. M4 OT- IP ADL's Start: 02/24/18 13:48 Freq: Status: Active Protocol: Document 02/25/18 17:37 [facility] (Rec: 02/25/18 17:50 [facility] [id number]) OT ADL-Dressing General Eval Lower Body Dressing Ability Maximum Assistance Areas Needing Assistance Socks Comments OT Dressing Comments At this time due to weakness, pt MAX for LB dressing needs. OT ADL-Toileting General Evaluation Toileting Ability Standby Assistance Comments OT Toileting Comments Pt needing assist for set-up , able to do all hygiene needs. Pt needing to rest as o2 level decrease to 88% on 2L. M6 OT- IP Functional Cognition Start: 02/24/18 13:48 Freq: Status: Active Protocol: Document 02/25/18 17:37 [facility] (Rec: 02/25/18 17:50 [facility] [id number]) Cognitive Factors Limiting Selfcare Function Cognitive Ability Level of Alertness Alert Patient Orientation Name Year Place Situation Attention Span Ability Capable of Focused Attention Capable of Sustained Attention Ability to Follow Commands Able to Follow Multi-Step Commands Memory Description Immediate Intact Usp Intact Cognitive Comments Cognitive Assessment Comments Pt able to follow 2 step commands. OT- Vision and Hearing OT- Hearing Assessment OT- Hearing Assessment WFL M7 OT- IP Mobility and Balance Start: 02/24/18 13:48 Freq: Status: Active Protocol: Document 02/25/18 17:37 [facility] (Rec: 02/25/18 17:50 [facility] [id number]) OT- Bed Mobility Assessment Rolling Type of Rolling Roll to Right Level of Assistance Standby Assistance Supine to Sit Supine to Sit Assist Standby Assistance 1 Person Assistance Bedrails Sit to Supine Sit to Supine Assist Minimal Assistance 1 Person Assistance OT-Transfer Assessment Sit to and From Stand Sit to and from Stand Minimal Assistance Moderate Assistance 1 Person Assistance Transfers Transfer Ability Minimal Assistance 1 Person Assistance Technique Transfer Destination Bed Bedside Commode Transfer Technique Stand Step Pivot Devices Transfer Assistive Devices Gait Belt Front Wheeled Walker Comments Mobility Comments Pt MODA to stand when fatigued and from lower surfaces. Pt's O2 tends to drop even on 2L of o2 and needing cues to rest and take deep breaths in. OT- Balance Assessment Sitting Balance and Reactions Static Sitting Balance Ability Normal Dynamic Sitting Balance Ability Good Standing Balance and Reactions Static Standing Balance Ability Fair M8 OT- IP Objective Assessments Start: 02/24/18 13:48 Freq: Status: Active Protocol: Document 02/25/18 17:37 [facility] (Rec: 02/25/18 17:50 [facility] [id number]) OT Gross Range of Motion Upper Extremity Range of Motion Assessment Left Impaired OT Strength Comments Strength Comments BUE 4/5 M9 OT- IP Assessment and Plan Start: 02/24/18 13:48 Freq: Status: Active Protocol: Document 02/25/18 17:37 [facility] (Rec: 02/25/18 17:50 [facility] [id number]) OT Summary Assessment and Plan Potential Rehabilitation Potential Good Analytic Complexity at Evaluation Low Summary OT Impairments Pain Strength Balance Functional Mobility Grooming Dressing Toileting Bathing Toilet Transfers Shower Transfers Progress Towards Goals Slow Progress due to Pain Slow Progress due to Medical Issues Slow Progress due to Activity Tolerance Assessment Summary Pt low complexitry is decreased strangth, endurance, activity tolerance, and now needing one person assist for ADL and functional mobility needs. Pt would benefit form short skilled rehab prior to going home. Goals Grooming Goal Standby Assistance Dressing Goal Standby Assistance Toileting Goal Standby Assistance Bathing Goal Minimal Assistance Toilet Transfer Goal Standby Assistance Shower Transfer Goal Contact Guard Assistance Days to Meet Goals 7 Frequency of Treatment Frequency Of Treatment Once a Day Treatment Plan OT Treatment Plan ADL Training Functional Mobility Patient/Family Education Discharge Planning Other Treatment Recommendations and Next Shower Treatment Focus Discharge Recommendations OT Discharge Recommendations SNF Rehab
--- NOTE | 2018-03-01 11:19 | PT.IPTN ---
Current Diagnoses Malignant neoplasm of unspecified part of unspecified bronchus or lung (02/23/18) Secondary malignant neoplasm of liver and intrahepatic bile duct (02/23/18) Secondary malignant neoplasm of bone (02/23/18) Malignant (primary) neoplasm, unspecified (02/23/18) Hypotension, unspecified (02/23/18) Other nonspecific abnormal finding of lung field (02/23/18) Physical Therapy Treatment Note M2 PT-IP Current Condition Start: 02/23/18 10:05 Freq: NEEDED Status: Active Protocol: Document 02/23/18 14:44 [facility] (Rec: 02/23/18 16:19 [facility] [id number]) Physical Therapy Current Condition Current Condition Evaluation Date 02/23/18 Treatment Diagnosis hypotension; generalized weakness Onset Date 02/23/18 Precautions Other Precautions hypotension; falls M3 PT-IP Subjective Start: 02/23/18 10:05 Freq: NEEDED Status: Active Protocol: Document 03/01/18 11:19 [facility] (Rec: 03/01/18 11:19 [facility] [id number]) Subjective Physical Therapy Visit Type Type Administrative Note Notes Pt discharged from PT services due to concern for impending pathological fracture per physician. Amount of Assist Needed 1 Person Assist Discharge Recommendations PT Discharge Recommendations SNF Rehab
--- NOTE | 2018-03-01 14:14 | DIET.PN ---
Visited pt r/t poor PO intake. Dx: new dx met cancer, extensive Diet: Gen Ht: 166cm Wt: 67.6kg Usual wt: 59kg BMI 21 NFPE: Noted severe temporal and orbital losses. Assessment: Pt states she thinks she's lost wt, but reported usual wt is more than current wt. Appears to be eating minimal. 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 Was drinking a milkshake when visited; not much else. Plans to start chemotherapy. Severe acute illness PCM r/t inadequate PO intake >5days AEB physical signs of muscle wasting. Intervention: Send ONS w/meals; encourage PO intake; offer snacks
--- NOTE | 2018-03-01 15:43 | P.PN_ITS ---
Subjective Date Patient Seen: 03/01/18 Interval history: Patient seen and examined. Events reviewed. Appreciate Dr. Fay's evaluation. Patient seen by Oncology POULTRY FARMWORKER today. Son/Patient still considering all options. She seems narcotized and confused to day. She states she is in pain but appears slow and lethargic. Discussed with Son, he notes mother may be habituated to narcotics. Patient is actively hallucinating. She does not appear to be in pain Exam Vital Signs (past 8 hours): - 03/01/18 07:41 03/01/18 12:06 Temperature 98 F Pulse Rate 70 Respiratory Rate 16 Blood Pressure 120/63 Pulse Oximetry 92 93 Fraction of Inspired Oxygen 28 Oxygen Delivery Method Nasal Cannula Oxygen Flow Rate 2 Narrative Exam Narrative: Ill appearing female Lungs: Decreased breath sounds with scattered crackles CV:RRR nl Sl S2 2/6 PUNEET Abd: soft/ non tender Ext: no edema Objective Labs Result Diagrams: 03/01/18 04:55 02/28/18 05:12 Labs: Laboratory Results - last 24 hr 03/01/18 04:55 WBC 9.8 RBC 4.68 Hgb 14.7 Hct 44.1 MCV 94.3 MCH 31.5 MCHC 33.4 RDW 15.5 H Plt Count 267 Neut % (Auto) 69.1 Lymph % (Auto) 12.0 L [place] % (Auto) 16.3 H Eos % (Auto) 1.8 L Baso % (Auto) 0.8 Neut # (Auto) 6800 Assessment & Plan (1) 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 hospice Current visit: Yes Status: Acute (2) Liver metastasis: Problem details: As above Current visit: Yes Status: Acute (3) Acute metabolic encephalopathy: Problem details: Will decrease narcotics and follow Current visit: Yes Status: Acute Quality VTE Deep Vein Thrombosis/Pulmonary Embolism Present on Admission: No
--- NOTE | 2018-03-01 17:48 | P.PNONC_ITS ---
PN -Subjective Interval history: Diagnosis: Metastatic small cell lung cancer Interval history: The patient is a 77-year-old woman with newly diagnosed metastatic small-cell lung cancer. I saw her initially last night. She has extensive liver metastasis as well as bony involvement. She had a biopsy left lung nodule. Pathology does in fact confirm small cell lung cancer. Patient reports that she is having some abdominal pain. She had been getting some pain medicine was a little bit over-medicated earlier today but is more alert and conversant this evening. Her appetite has been poor although she has been eating small amounts. She denies any nausea or vomiting. She is not having any pain in the legs. On exam, she is alert and oriented she is in no acute distress. She is not further examined. - Patient Self-Reported Symptoms SR Constitution: Weight loss/gain, Fatigue/Malaise SR respiratory issues: Shortness of breath SR Gastrointestinal issues: Poor or no appetite, Abdominal pain SR Neuro issues: Lightheaded/dizzy Home Medications and Allergies Home Medications Medication Instructions Recorded Confirmed Type cyanocobalamin (vitamin B-12) 1,000 mcg PO QDAY #30 tab 06/10/17 02/25/18 History melatonin 9 mg PO HS #30 tab 06/10/17 02/25/18 History trazodone 100 mg tablet 200 mg PO HS 30 Days #60 tab 12/12/17 02/23/18 Rx levothyroxine 100 mcg tablet 100 mcg PO DAILY #90 tab 12/16/17 02/23/18 Rx duloxetine 30 mg capsule,delayed 30 mg PO BID #60 tab 12/26/17 02/23/18 Rx release metoprolol tartrate 25 mg tablet 25 mg PO BID #60 tab 12/26/17 02/23/18 Rx famotidine 20 mg tablet 20 mg PO BID #60 tab 01/06/18 02/23/18 Rx alprazolam 1 mg tablet 1 mg PO BIDP PRN #60 tab 01/13/18 02/23/18 Rx gabapentin 300 mg capsule 300 mg PO BID 30 Days #60 cap 01/13/18 02/23/18 Rx simvastatin 20 mg tablet 20 mg PO HS #30 tab 01/16/18 02/23/18 Rx Allergies Allergy/AdvReac Type Severity Reaction Status Date / Time meperidine [From DEMEROL] Allergy Unknown Verified 01/13/18 14:30 piroxicam [From FELDENE] Allergy Unknown Verified 01/13/18 14:30 Exam - Constitutional positive no acute distress, positive thin Results - Labs Laboratory Last Values WBC 9.8 X10^3/uL (4.5-11.0) 03/01/18 04:55 RBC 4.68 X10^6/uL (4.0-5.2) 03/01/18 04:55 Hgb 14.7 g/dL (12.0-16.0) 03/01/18 04:55 Hct 44.1 % (36-46) 03/01/18 04:55 MCV 94.3 fL (80-100) 03/01/18 04:55 MCH 31.5 PG (26-34) 03/01/18 04:55 MCHC 33.4 % (30-36) 03/01/18 04:55 RDW 15.5 % (11.6-14.8) H 03/01/18 04:55 Plt Count 267 X10^3/uL (150-400) 03/01/18 04:55 Neut % (Auto) 69.1 % (50-75) 03/01/18 04:55 Lymph % (Auto) 12.0 % (25-40) L 03/01/18 04:55 [place] % (Auto) 16.3 % (3-14) H 03/01/18 04:55 Eos % (Auto) 1.8 % (2-4) L 03/01/18 04:55 Baso % (Auto) 0.8 % (0-2) 03/01/18 04:55 Neut # (Auto) 6800 /uL (8837-5863) 03/01/18 04:55 PT 12.9 SECONDS (10.1-12.7) H 02/28/18 05:12 INR 1.1 (0.9-1.3) 02/28/18 05:12 APTT 31 SECONDS (26.4-36.2) 02/23/18 04:57 Sodium 139 mmol/L (137-145) 02/28/18 05:12 Potassium 4.6 mmol/L (3.4-5.1) 02/28/18 05:12 Chloride 105 mmol/L (98-107) 02/28/18 05:12 Carbon Dioxide 25 mmol/L (22-32) 02/28/18 05:12 BUN 9 mg/dL (7-17) 02/28/18 05:12 Creatinine 0.70 mg/dL (0.52-1.04) 02/28/18 05:12 Estimated GFR > 60.0 mL/min (>60) 02/28/18 05:12 BUN/Creatinine Ratio 12.9 (6-22) 02/28/18 05:12 Glucose 100 mg/dL (80-110) 02/28/18 05:12 Lactate 0.8 mmol/L (0.7-2.1) 02/22/18 20:29 Calcium 8.1 mg/dL (8.4-10.2) L 02/28/18 05:12 Phosphorus 1.5 mg/dL (2.8-4.1) L 02/28/18 05:12 Magnesium 1.7 mg/dL (1.6-2.3) 02/28/18 05:12 Iron 52 ug/dL (37-170) 02/23/18 04:57 TIBC 251 ug/dL (265-497) L 02/23/18 04:57 % Saturation 21 % (15-50) 02/23/18 04:57 Transferrin 168 mg/dL (206-381) L 02/23/18 04:57 Ferritin 67.1 ng/mL (11.1-264) 02/23/18 04:57 Total Bilirubin 2.1 mg/dL (0.2-1.3) H 02/28/18 05:12 Conjugated Bilirubin 0.0 md/dL (0.0-0.3) 02/23/18 04:57 Unconjugated Bilirubin 0.2 mg/dL (0.0-1.1) 02/23/18 04:57 AST 143 IU/L (14-36) H 02/28/18 05:12 ALT 130 IU/L (9-52) H 02/28/18 05:12 Alkaline Phosphatase 237 U/L (38-126) H 02/28/18 05:12 Troponin I < 0.012 ng/mL (0.01-0.034) 02/22/18 19:42 Total Protein 5.7 g/dL (6.3-8.2) L 02/28/18 05:12 Albumin 3.1 g/dL (3.5-5.0) L 02/28/18 05:12 Globulin 2.6 g/dL (1.7-4.1) 02/28/18 05:12 Albumin/Globulin Ratio 1.2 (1.0-2.8) 02/28/18 05:12 Lipase 250 U/L (23-300) 02/22/18 19:42 Urine Color Yellow 02/23/18 Unknown Urine Appearance Clear 02/23/18 Unknown Urine pH 5.0 (4.5-8.0) 02/23/18 Unknown Ur Specific [place] 1.010 (1.000-1.035) 02/23/18 Unknown Urine Protein Negative (Negative) 02/23/18 Unknown Urine Glucose (UA) Trace g/dL (Normal) 02/23/18 Unknown Urine Ketones Negative (NEGATIVE) 02/23/18 Unknown Urine Occult Blood Negative (Negative) 02/23/18 Unknown Urine Nitrate Negative (Negative) 02/23/18 Unknown Urine Bilirubin Negative (NEGATIVE) 02/23/18 Unknown Urine Urobilinogen 1.0 E.U./dL (0.2) 02/23/18 Unknown Ur Leukocyte Esterase Negative (NEGATIVE) 02/23/18 Unknown Urine RBC None seen (0-5/HPF) 02/23/18 Unknown Urine WBC None seen (0-5/HPF) 02/23/18 Unknown Urine Bacteria None seen (None) 02/23/18 Unknown Ur Culture Indicated? 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 hospice Current visit: Yes Status: Acute Assessment plan: This is a 77-year-old woman with extensive small-cell lung cancer. She has poor performance status. We had talked extensively with her and her son last night about the possibility of chemotherapy. Goal of chemotherapy would be to try and decrease the size of her cancer and improve her symptoms and quality of life. The risk for side effects would be substantial. In the best case scenario, she would tolerate chemotherapy well and have a good response with decrease in the size of her cancers to the point that she might tolerate orthopedic procedures. She would ideally be able to return to independent living eventually. However that time of independence would even under the best of circumstances be brief. The disease would have an avidly recur and second- line treatment is rarely effective. We also talked about supportive care or hospice instead. We talked about the goals being comfort and quality of life and avoiding toxicity of chemotherapy. She is reluctant to agree to chemotherapy and would favor a palliative approach. Both she and her son are in agreement. We will arrange for hospice consult tomorrow. (2) Liver metastasis Problem details: As above Current visit: Yes Status: Acute
[2018-03-01] MEDS: SIMVASTATIN 20 MG TABLET PO (21:46)
[2018-03-01] MEDS: TRAZODONE 100 MG TABLET 200 MG PO (21:46)
[2018-03-02] VITALS (9 sets, daily range): BP systolic 90–118; BP diastolic 50–68; PULSE 67–90; RESP 16–18; TEMP 36.3–36.9; O2SAT 93–95
[2018-03-02] MEDS: OXYCODONE IR 5 MG TABLET PO ×2 (00:15→05:59)
--- NOTE | 2018-03-02 00:38 | PC.NURSE ---
Addendum entered by Rehana Helms R.N. 03/02/18 06:01: No further hallucinations noted. This morning complaining of 8/10 pain along with nausea. Medicated with Zofran and then with Oxycodone. UOP was only 125cc this shift. Original Note: Addendum entered by Rehana Helms R.N. 03/02/18 02:34: Patient put call light on and is wanting the table removed from my feet. Oriented to the fact that there is no table over her feet. Then stated she thought it probably fell but assured her that nothing has fallen and that there has never been a table over her feet. Reoriented and now seems content once again. Original Note: Patient is alert but more confused tonight. Did not know her own birthdate and told RN she is in a car traveling; did know she was in [place] and the [facility]. Does know she is in hospital for hypotension and now has dx of cancer. Breath sounds still with expiratory crackles in bilateral mid/lower lobes; worse on left. Oxygen at 3L/min with sat of 95%; on continuous pulse oximetry. HRR. BP trending low at 100/56. Denies nausea. BT very hypoactive; abdomen is distended and firm across lower abdomen with lump palpated in LLQ. Has not had BM since 02/25 and no bowel meds have been ordered so given prune juice. Indwelling catheter is patent but still had low UOP of 150cc on evening shift and urine remains tea colored. Needing assist to reposition q2h as not turning herself. Chronic numbness in bilateral feet and fingertips of both hands. Wearing DARRIAN stockings. Fall risk score is high and bed alarm is activated.
[2018-03-02] MEDS: ONDANSETRON 4 MG/2 ML INJ IV (05:51)
[2018-03-02] MEDS: SODIUM CHLORIDE 0.9% FLUSH 10 ML IV ×3 (05:51→20:21)
--- NOTE | 2018-03-02 08:40 | CM.DPNOTE ---
DCP: continued: case received yesterday, EMR reviewed. flour worker Cindy Loaiza was in blower feeder dyed raw stock and spent a lengthy period of time in discussion with pt and her son Blaine re oncology issues and options related to goals of care and quality of life. Met later with Blaine and his mother. Both were continuing to struggle with decisions presented by Dr. Fay with Blaine saying he knew what he would choose for himself but being very sensitive to his mother's right to make her own choices. Did also give Medicaid application for Blaine to complete as pt does not have the funds for pvt pay at snf level and she is unable to return to [facility] setting. See this morning that Dr. Fay did see pt and Blaine again last evening after clinic, he note is available. He recommends now strong consideration of Hospice plan of care. Will be following up again today.
[2018-03-02] MEDS: OXYCODONE 5 MG/5 ML ORAL SOLUTION 10 MG PO ×2 (09:09→17:24)
[2018-03-02] MEDS: DULOXETINE 30 MG CAPSULE PO ×2 (09:13→20:22)
[2018-03-02] MEDS: GABAPENTIN 300 MG CAPSULE PO ×2 (09:13→20:21)
[2018-03-02] MEDS: LEVOTHYROXINE 100 MCG TABLET PO (09:13)
[2018-03-02] MEDS: METOPROLOL IR 25 MG TABLET PO ×2 (09:13→20:21)
[2018-03-02] MEDS: DOCUSATE 100 MG CAPSULE 200 MG PO (09:40)
[2018-03-02] MEDS: ONDANSETRON 4 MG ODT PO (09:41)
[2018-03-02] MEDS: ACETAMINOPHEN 325 MG TABLET 650 MG PO ×2 (09:42→18:58)
[2018-03-02] MEDS: IBUPROFEN 600 MG TABLET PO (09:43)
--- NOTE | 2018-03-02 12:40 | PM.PN.1 ---
Subjective Date Patient Seen: 03/02/18 Interval history: Patient had multiple episodes of confusion and delirium yesterday. She had active visual hallucinations. She is less groggy, delirious today. She does admit to having some pain. Her appetite remains poor. Oncology recommendations and evaluation is greatly appreciated. Review records indicate the patient will likely transition to hospice. As she requires nursing home stay at discharge she may require comfort measures at the facility with or without hospice. Pain control continues to be challenging given confusion with narcotics. Will continue to adjust as needed. Exam Vital Signs (past 8 hours): - 03/02/18 08:00 03/02/18 08:30 03/02/18 12:00 Temperature 98.4 F 97.9 F Pulse Rate 90 76 Respiratory Rate 16 16 Blood Pressure 118/68 98/62 Pulse Oximetry 93 93 94 Fraction of Inspired Oxygen 32 Oxygen Delivery Method Nasal Cannula Oxygen Flow Rate 3 Narrative Exam Narrative: Ill appearing female who reports pain Lungs: Left basilar crackles, decreased breath sounds Cardiac exam: Regular rate and rhythm normal S1 and S2 Abdomen: Soft nontender nondistended Extremities: No edema Objective Labs Result Diagrams: 03/01/18 04:55 02/28/18 05:12 Assessment & Plan (1) Acute metabolic encephalopathy: Problem details: Will decrease narcotics and follow. Patient is current on 10 mg of oxycodone q.4 hours as needed. Will adjust medications as needed. Previously on long-acting OxyContin and fentanyl she was quite confused. 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 hospice. Family has recommended deferring chemotherapy at this time. They would like to move the patient to comfort measures. Will discuss code status with them today. Would recommend do not resuscitate at this time. Current visit: Yes Status: Acute (3) Liver metastasis: Problem details: As above Current visit: Yes Status: Acute (4) Hypotension: Problem details: Improved Qualifiers: Hypotension type: unspecified hypotension type Trimester: Qualified Code(s): I95.9 - Hypotension, unspecified Current visit: Yes Status: Acute (5) Generalized anxiety disorder: Problem details: Patient continues to have alprazolam as needed for anxiety Current visit: No Status: Chronic Plan: Assessment/Plan Narrative: Anticipated discharge to nursing home facility once a bed is available. Quality VTE Deep Vein Thrombosis/Pulmonary Embolism Present on Admission: No
--- NOTE | 2018-03-02 12:45 | PC.NURSE ---
Day shift: IV site and no longer flushes. It was removed. Per Dr Mauricio no need to start new IV at this time.
--- NOTE | 2018-03-02 12:55 | PC.NURSE ---
Day shift: Ambulated in poretr to window to left of room today. Did well. Pt slept most of the morning and did wake up enough to eat breakfast. No s/s of pain at this time. 1 on METAL TECHNICIAN today. end frazer was informed by this blog writer that it would be a good idea to have 1 on 1 for the next shift. Weight bearing much better today per PT and watching the Pt ambulate.
--- NOTE | 2018-03-02 13:40 | PC.NURSE ---
Day shift: Encouraged Pt to drink as much fluids as she can stand. Urine cloudy with light pink color in tube.
[2018-03-02] MEDS: TRAZODONE 100 MG TABLET 200 MG PO (20:21)
[2018-03-02] MEDS: SIMVASTATIN 20 MG TABLET PO (20:21)
[2018-03-02] MEDS: ALPRAZolam 0.25 MG TABLET 1 MG PO (22:47)
--- NOTE | 2018-03-02 23:24 | PC.NURSE ---
Addendum entered by Virgen Ya R.N. 03/02/18 23:31: New order obtained for IVF NS at 100ml/hr and BMP in the am Original Note: Gillian shift note: Called at 9100 to notify regarding urine output 75ml. Awaiting for call back. Attempt at [phone].
[2018-03-02 23:56] LABS: BUN Creatinine Ratio 18.8 (6-22); Blood Urea Nitrogen 15 mg/dL (7-17); Calcium 8.3 mg/dL (8.4-10.2); Carbon Dioxide 25 mmol/L (22-32); Chloride 102 mmol/L (98-107); Estimated Glomerular Filt Rate > 60.0 mL/min (>60); Glucose 109 mg/dL (80-110); HEMOLYSIS 18 (0-50); Potassium 4.5 mmol/L (3.4-5.1); Sodium 133 mmol/L (137-145)
[2018-03-03] MEDS: SODIUM CHLORIDE 0.9% 1,000 ML 100 ML IV ×3 (00:07→19:37)
[2018-03-03] MEDS: OXYCODONE 5 MG/5 ML ORAL SOLUTION 10 MG PO ×6 (00:12→21:02)
--- NOTE | 2018-03-03 00:39 | PC.NURSE ---
Addendum entered by Rehana Helms R.N. 03/03/18 06:19: Patient states abdomen/back pain is currently 4/10 so medicated with Oxycodone. UOP this shift has been 300cc total but still cloudy and tea colored. Found with oxygen off and states I don't need that anymore; informed her that sat down to 89% so agreeable to having put back on and now sat is 98% so oxygen decreased to 2L/min. Original Note: Patient is mostly oriented but did not know month, date or day of week. Breath sounds still with crackles in left mid/lower lobes. Currently on oxygen at 3L/min per NC with sat of 95%; remains on continuous pulse oximeter. HRR. BP low at 90/51 and has been trending low intermittently. IVF have been started per MD order so will observe since patient is currently asymptomatic. Denies nausea. BT hypoactive and has not had a BM since 02/25 although refused most of ordered bowel meds yesterday; states she will take them later today. Abdomen appearing more distended and remains firm across mid/lower abdomen. Complains of 5/10 abdomen and back pain so medicated with Oxycodone elixer. Indwelling catheter is patent with cloudy tea colored urine. UOP only 75cc on past 2 shifts so MD reordered IVF so will continue to monitor. Is needing assistance to turn in bed so staff repositioning q2h. Wearing DARRIAN stockings. Fall risk score is high and bed alarm is activated.
[2018-03-03 04:23] VITALS: BP 112/63; PULSE 71; RESP 17; TEMP 36.7; O2SAT 94
[2018-03-03 05:50] LABS: BUN Creatinine Ratio 17.5 (6-22); Blood Urea Nitrogen 14 mg/dL (7-17); Calcium 8.3 mg/dL (8.4-10.2); Carbon Dioxide 25 mmol/L (22-32); Chloride 103 mmol/L (98-107); Estimated Glomerular Filt Rate > 60.0 mL/min (>60); Glucose 89 mg/dL (80-110); HEMOLYSIS < 15 (0-50); Potassium 4.1 mmol/L (3.4-5.1); Sodium 135 mmol/L (137-145)
[2018-03-03 08:00] VITALS: BP 121/69; PULSE 83; RESP 18; TEMP 36.8; O2SAT 93
[2018-03-03] MEDS: ACETAMINOPHEN 325 MG TABLET 650 MG PO ×2 (09:13→21:03)
[2018-03-03] MEDS: IBUPROFEN 600 MG TABLET PO (09:13)
[2018-03-03] MEDS: DOCUSATE 100 MG CAPSULE 200 MG PO ×2 (09:14→21:03)
[2018-03-03] MEDS: DULOXETINE 30 MG CAPSULE PO ×2 (09:14→21:03)
[2018-03-03] MEDS: LEVOTHYROXINE 100 MCG TABLET PO (09:15)
[2018-03-03] MEDS: GABAPENTIN 300 MG CAPSULE PO ×2 (09:15→21:03)
[2018-03-03] MEDS: METOPROLOL IR 25 MG TABLET PO ×2 (09:15→21:04)
[2018-03-03 11:07] VITALS: O2SAT 88; O2SAT 94
[2018-03-03] MEDS: MAGNESIUM HYDROXIDE 30 ML UDC PO (11:54)
--- NOTE | 2018-03-03 15:37 | PC.NURSE ---
At 1400, Urinary catheter emptied for approx 150mls concentrated jessy urine. Then pt's flushed with approx 200mls and 200mls of light yellow urine returned and emptied. Nelson catheter bag changed and secured. At 1520, urine sample obtained from urinary catheter port and sent to lab.
[2018-03-03 16:00] VITALS: BP 121/65; PULSE 77; RESP 16; TEMP 36.6; O2SAT 94
--- NOTE | 2018-03-03 16:41 | CM.DPC ---
DCP: continued: HNRodrigo Yadirameri was here this mornin and met with pt and Blaine. Met again with Blaine and Jose for lenghty discussion afterwards as Blaine had continued questions re issues and options. [facility]/Kathryn and her nurse Ana Lilia confirmed acceptance of pt when stable but with understanding that if pt was stable for d/c today they could accept her (Dr. Garber later met with pt and Blaine and determined that she was not yet ready to dc) but next acceptance would be Tuesday 03/06. Dr. Garber was updated and agreeable to same. Blaine was updated. Shared that he had only done an online tour of the facility. Encouraged him to go and actually tour as he had many questions re how the snf would be managing the care and who would be following as the dc media planner there. Went over several times again today as Blaine's request: info on the Medicare snf benefit, the role of the Medicare supplement, the skilled vs stable/long-term levels of care. [facility] was aware that the stay was to focus on skilled symptom management/end of life care. [facility] would open later if pt converted to pvt or medicaid pay and either at the [facility] or at a [facility] care facility if this seemed appropriate. OF NOTE:: the [facility] nurse Ana Lilia clarified that if pt continues on her Xanax, which she has been using for a long time at home on a prn basis, it must be a scheduled dosing routine, not a prn. This is a recent change to the CMS rules/regs for the snf setting. She also, of course, cannot smoke in that setting. Approx 1.5 hours spent today in coordination of safe and appropriate d/c options today.
[2018-03-03] MEDS: POLYETHYLENE GLYCOL 3350 17 GM POWD.PACK PO (17:35)
[2018-03-03] MEDS: ALPRAZolam 0.25 MG TABLET 1 MG PO (17:38)
[2018-03-03 20:00] VITALS: BP 114/59; PULSE 77; RESP 18; TEMP 36.8; O2SAT 87
[2018-03-03] MEDS: TRAZODONE 100 MG TABLET 200 MG PO (21:04)
[2018-03-03] MEDS: SENNOSIDES 8.6 MG TABLET 17.2 MG PO (21:05)
[2018-03-03] MEDS: SIMVASTATIN 20 MG TABLET PO (21:05)
[2018-03-03 22:03] VITALS: O2SAT 92
--- NOTE | 2018-03-03 22:21 | P.PN_ITS ---
Subjective Date Patient Seen: 03/03/18 Interval history: The patient has mental cognition has cleared considerably but still exhibits some mild confusion. She is resting in bed comfortably and in no acute distress. She continues to endorse chest and epigastric pain. She denies headache, shortness of breath, nausea, vomiting, fever, chills, diarrhea or constipation. She is voiding via Nelson catheter and eliminating without difficulty. She is predominantly in bed. Exam Vital Signs (past 8 hours): - 03/03/18 16:00 03/03/18 20:00 03/03/18 22:03 Temperature 98 F 98.2 F Pulse Rate 77 77 Respiratory Rate 16 18 Blood Pressure 121/65 114/59 L Pulse Oximetry 94 87 L 92 Fraction of Inspired Oxygen 32 Oxygen Delivery Method Nasal Cannula Oxygen Flow Rate 2 Narrative Exam Narrative: General: Elderly female lying in bed and in no acute distress, thin, appears chronically ill, withdrawn and mildly confused. HEENT: Normocephalic, atraumatic. External ears without defect. Pupils equal, round, and reactive to light. Anicteric sclerae, moist conjunctivae, and no lid lag. Oropharynx free of erythema and cobble stoning with moist mucosa. Neck: Supple with full range of motion. No lymphadenopathy or thyromegaly. Cardiovascular: Regular rate and rhythm without murmurs, rubs, or gallops appreciated Pulmonary: Clear to auscultation bilaterally without crackles, wheezes, or rhonchi. Normal respiratory effort with no use of accessory muscles. Abdomen: Bowel tones present. Soft, mild tenderness to palpation in epigastrium , non-distended. Extremities: No clubbing, cyanosis, or edema. Skin: Normal temperature, turgor, and texture; no rash, ulcers, or subcutaneous nodules appreciated. Neurological: Cranial nerves grossly intact. Psychiatric: Depressed mood and flat affect. Alert and mildly confused. Objective Labs Result Diagrams: 03/01/18 04:55 03/03/18 04:56 Labs: Laboratory Results - last 24 hr 03/02/18 03/03/18 23:37 04:56 Sodium 133 L 135 L Potassium 4.5 4.1 Chloride 102 103 Carbon Dioxide 25 25 BUN 15 14 Creatinine 0.80 0.80 Estimated GFR > 60.0 > 60.0 BUN/Creatinine Ratio 18.8 17.5 Glucose 109 89 Calcium 8.3 L 8.3 L Assessment & Plan Plan: Assessment/Plan Narrative: (1) Acute metabolic encephalopathy: Problem details: Will decrease narcotics and follow. Patient is currently on 10 mg of oxycodone q.4 hours as needed which is minimally controlling her pain. Adjusting pain medication to find stable regimen as she has been quite delirious previously on long-acting OxyContin and fentanyl. 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 They would like to move the patient to comfort measures. Current visit: Yes Status: Acute (3) Liver metastasis: Problem details: As above Current visit: Yes Status: Acute (4) Hypotension: Problem details: Resolved Qualifiers: Hypotension type: unspecified hypotension type Trimester: Qualified Code(s): I95.9 - Hypotension, unspecified Current visit: Yes Status: Acute (5) Generalized anxiety disorder: Problem details: Patient continues to have alprazolam as needed for anxiety Current visit: No Status: Chronic Plan: [facility] once pain regimen is adjusted and her pain is controlled which well likely be in 1-2 days. Quality VTE Deep Vein Thrombosis/Pulmonary Embolism Present on Admission: No
[2018-03-03 22:43] LABS: Appearance Urine UA CLEAR; Bilirubin Urine UA 2+ (NEGATIVE); Color Urine UA YELLOW; Glucose Urine UA NEGATIVE (Normal); Ketones Urine UA TRACE (NEGATIVE); Leukocyte Esterase Urine UA 1+ (NEGATIVE); Nitrite Urine UA POSITIVE (Negative); Occult Blood Urine UA 1+ (Negative); Protein Urine UA 1+ (Negative)
[2018-03-04] VITALS (18 sets, daily range): BP systolic 108–124; BP diastolic 62–72; PULSE 71–95; RESP 14–22; TEMP 36.4–37.2; O2SAT 86–94
[2018-03-04 03:54] LABS: Calcium Oxalate Crystals Urine Few; RBC Urine 1-5/HPF (0-5/HPF); WBC Urine 1-5/HPF (0-5/HPF)
[2018-03-04 03:55] LABS: Bacteria Urine Many (>30); Hyaline Casts Urine 0-1/LPF
[2018-03-04 04:29] LABS: Ictotest Urine Positive (Negative)
[2018-03-04] MEDS: ALPRAZolam 0.25 MG TABLET 1 MG PO (05:17)
[2018-03-04] MEDS: SODIUM CHLORIDE 0.9% 1,000 ML 100 ML IV ×2 (05:19→15:53)
[2018-03-04] MEDS: OXYCODONE 5 MG/5 ML ORAL SOLUTION 10 MG PO ×2 (05:24→08:26)
[2018-03-04] MEDS: DOCUSATE 100 MG CAPSULE 200 MG PO ×2 (08:53→20:43)
[2018-03-04] MEDS: DULOXETINE 30 MG CAPSULE PO ×2 (08:53→20:43)
[2018-03-04] MEDS: LEVOTHYROXINE 100 MCG TABLET PO (08:53)
[2018-03-04] MEDS: GABAPENTIN 300 MG CAPSULE PO ×2 (08:53→20:44)
[2018-03-04] MEDS: METOPROLOL IR 25 MG TABLET PO ×2 (08:54→20:43)
[2018-03-04] MEDS: SENNOSIDES 8.6 MG TABLET 17.2 MG PO (08:54)
[2018-03-04] MEDS: OXYCODONE 5 MG/5 ML ORAL SOLUTION 15 MG PO ×2 (11:39→18:06)
[2018-03-04] MEDS: POLYETHYLENE GLYCOL 3350 17 GM POWD.PACK PO (11:53)
--- NOTE | 2018-03-04 12:52 | CM.DPC ---
Addendum entered by Orin Reynoso R.N. 03/04/18 14:53: Spoke to Payal at [facility]. Stated that they should be able to accept her, but will have Aleena review in the morning. Aleena will be in admissions tomorrow. Original Note: DCP Cont: Had originally spoken to Greta, at [facility] in [facility]. She stated that they were not able to accept patient over the week-end. This case resource manager was going to call her back to inquire on the reasoning, for hospitalist stated that patient could be discharged this week-end. Met with son, Blaine, here in office. He stated that he decided on [facility] instead. He stated they have some private rooms there. He had been touring the facility. Called and spoke to Payla in admissions at [facility]. Stated that they are familiar with patient, since son had been there. She confirmed that they also have beds available. Went ahead and faxed clinical notes over to Payal at [facility] so she can review. Let her know in conversation that hospitalist is looking at discharging this week-end. P: DCP to continue to follow closely. Will follow up with Payal at [facility] either this pm, or early in the morning, regarding acceptance. Orin Reynoso RN/[employer] Feeder
--- NOTE | 2018-03-04 15:46 | PC.NURSE ---
Patient slept on and off today. States she is more comfortable since pain medications increased today at noon. Nelson remains in place, urine concentrated and dark. Refused transfer up to chair or commode today. Assisted with repositioning in bed, refused turning at times. Soft foam pads placed to oxygen tubing today to protect fragile skin. Bed alarm on for safety. Call light withinr each.
[2018-03-04] MEDS: TRAZODONE 100 MG TABLET 200 MG PO (20:43)
[2018-03-04] MEDS: SIMVASTATIN 20 MG TABLET PO (20:44)
[2018-03-04] MEDS: OXYCODONE 5 MG/5 ML ORAL SOLUTION PO (20:46)
--- NOTE | 2018-03-04 21:09 | P.PN_ITS ---
Subjective Date Patient Seen: 03/04/18 Interval history: The patient's mentation seems to be close to baseline. She is resting in bed comfortably and in no acute distress. She continues to endorse epigastric abdominal pain. She continues to rate her pain a + 8/10 despite considerable increase in frequency of pain medication. Discussed with the patient goals of care for which she relates that she would rather be awake in pain and able to converse with her loved ones then to be incoherent and comfortable. She reports a tolerable level for pain for her is a +5/10. She denies headache, shortness of breath, nausea, vomiting, fever, chills, diarrhea or constipation. She is voiding via Nelson catheter and eliminating without difficulty. She is predominantly in bed. Exam Vital Signs (past 8 hours): - 03/04/18 15:45 03/04/18 15:56 03/04/18 19:00 Temperature 97.6 F Pulse Rate 85 Respiratory Rate 18 Blood Pressure 122/65 Pulse Oximetry 92 91 91 03/04/18 20:00 03/04/18 20:50 03/04/18 20:51 Temperature Pulse Rate 95 H Respiratory Rate 16 Blood Pressure 120/72 Pulse Oximetry 90 L 86 L 92 Fraction of Inspired Oxygen 32 Oxygen Delivery Method Nasal Cannula Oxygen Flow Rate 2 Narrative Exam Narrative: General: Elderly female lying in bed and in no acute distress, thin, appears chronically ill, withdrawn and mildly confused. HEENT: Normocephalic, atraumatic. External ears without defect. Pupils equal, round, and reactive to light. Anicteric sclerae, moist conjunctivae, and no lid lag. Oropharynx free of erythema and cobble stoning with moist mucosa. Neck: Supple with full range of motion. No lymphadenopathy or thyromegaly. Cardiovascular: Regular rate and rhythm without murmurs, rubs, or gallops appreciated Pulmonary: Clear to auscultation bilaterally without crackles, wheezes, or rhonchi. Normal respiratory effort with no use of accessory muscles. Abdomen: Bowel tones present. Soft, mild tenderness to palpation in epigastrium , non-distended. Genitourinary: Urinary catheter in place with tea-colored urine. Extremities: No clubbing, cyanosis, or edema. Skin: Normal temperature, turgor, and texture; no rash, ulcers, or subcutaneous nodules appreciated. Neurological: Cranial nerves grossly intact. Psychiatric: Depressed mood and flat affect. Alert and oriented. Objective Labs Result Diagrams: 03/01/18 04:55 03/03/18 04:56 Labs: Laboratory Results - last 24 hr 03/03/18 03/03/18 15:20 15:20 Urine Color Yellow Urine Appearance Clear Urine pH 5.0 Ur Specific Quinton 1.010 Urine Protein 1+ H Urine Glucose (UA) Negative Urine Ketones Trace H Urine Occult Blood 1+ H Urine Nitrate Positive H Urine Bilirubin 2+ H Urine Ictotest Positive H Urine Urobilinogen 4.0 H Ur Leukocyte Esterase 1+ H Urine RBC 1-5/hpf Urine WBC 1-5/hpf Calcium Oxalate Crystal Few H Urine Bacteria Many (>30) H Hyaline Casts 0-1/lpf Ur Culture Indicated? Not Reportable Micro UA Comment Not Reportable Assessment & Plan Plan: Assessment/Plan Narrative: 1. Acute metabolic encephalopathy, present on admission. Improving. -Patient is currently on 10 mg of oxycodone q.4 hours as needed which is minimally controlling her pain. Adjusting pain medication to find stable regimen as she has been quite delirious previously on long-acting OxyContin and fentanyl. 2. 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 Active. -Family has recommended deferring chemotherapy at this time. They would like to move the patient to comfort measures. Liver metastasis: Hypotension, present on admission. Resolved. 5. Generalized anxiety disorder, chronic, present on admission. Stable. -Patient continues to have alprazolam as needed for anxiety Disposition: Anticipated discharge to intermediate facility once pain regimen is adjusted and her pain is controlled which well likely be in 1-2 days. Quality VTE Deep Vein Thrombosis/Pulmonary Embolism Present on Admission: No
--- NOTE | 2018-03-04 22:47 | PC.NURSE ---
1500 assumed care of pt from outgoing shift. Pt asleep, arouses to voice. pt son, hermelinda, in and out of room. Pt refused any snacks or ensure at this time. Pt has amanda hoes to amy calf, rolled down as there were some lines becoming apparent to amy below knee. 1615-amy amanda hoes rolled back up to bottom of knee. Pt still refusing food/snacks. 2100- discussed with md positive UTI results. md ordered to removed old marcos and replace. Pt agreeable and completed. will continue to monitor.
[2018-03-05] VITALS (8 sets, daily range): BP systolic 114–127; BP diastolic 58–65; PULSE 92–97; RESP 16–22; TEMP 36.3–36.8; O2SAT 85–93
[2018-03-05] MEDS: OXYCODONE 5 MG/5 ML ORAL SOLUTION 15 MG PO ×3 (00:17→12:27)
--- NOTE | 2018-03-05 03:52 | PC.NURSE ---
Facilities Technician Note: 0010: Awake, vital signs stable. IV in place in rt hand. Nelson catheter patent, and draining dark jesys urine, small amount. Pt remains on O2 2L/NC. Pt asking for pain medication. Scheduled Oxycodone given. Pt declines position change at this time, states she is comfortable. 0330: Awake, assisted to turn and reposition on rt side.
[2018-03-05 06:08] LABS: Add Manual Diff / Slide Review NO; Basophils Percent Auto 0.5 % (0-2); Eosinophils Percent Auto 0.2 % (2-4); Hematocrit 49.4 % (36-46); Hemoglobin 16.3 g/dL (12.0-16.0); Lymphocytes Percent Auto 8.5 % (25-40); Mean Corpuscular Hemoglobin 31.2 PG (26-34); Mean Corpuscular Volume 94.7 fL (80-100); Monocytes Percent Auto 10.9 % (3-14); Neutrophils Absolute Auto 11100 /uL (1500-7000); Neutrophils Percent Auto 79.9 % (50-75); Platelet Count 307 X10^3/uL (150-400); Red Blood Cell Count 5.21 X10^6/uL (4.0-5.2); Red Cell Distribution Width 15.6 % (11.6-14.8); White Blood Cell Count 13.9 X10^3/uL (4.5-11.0)
--- NOTE | 2018-03-05 09:07 | PC.NURSE ---
Dr. Garber notified of low urine output from shift supervisor melting (45cc), urine is very dark and concentrated. Order to restart iv fluids at this time, normal saline at 60cc an hour received.
[2018-03-05] MEDS: POLYETHYLENE GLYCOL 3350 17 GM POWD.PACK PO (09:44)
[2018-03-05] MEDS: cephALEXin 250 MG CAPSULE 500 MG PO (09:44)
[2018-03-05] MEDS: LEVOTHYROXINE 100 MCG TABLET PO (09:45)
[2018-03-05] MEDS: METOPROLOL IR 25 MG TABLET PO (09:45)
[2018-03-05] MEDS: SODIUM CHLORIDE 0.9% 1,000 ML 60 ML IV (09:45)
[2018-03-05] MEDS: GABAPENTIN 300 MG CAPSULE PO (09:45)
[2018-03-05] MEDS: DULOXETINE 30 MG CAPSULE PO (09:45)
[2018-03-05] MEDS: DOCUSATE 100 MG CAPSULE 200 MG PO (09:45)
[2018-03-05] MEDS: SENNOSIDES 8.6 MG TABLET 17.2 MG PO (09:45)
--- NOTE | 2018-03-05 13:23 | CM.DPC ---
DCP Cont: Was able to speak to Aleena in admissions at [facility]. She had asked if nursing notes get faxed over and medication list. Went ahead and faxed over notes to Aleena. Let her know that patient could be discharged tomorrow. She stated that she does have a bed, but would like to send someone out to see her in the morning. She stated that she would not be in tomorrow, but would possibly have Tamiko come and evaluate. P: DCP to continue to assess. Will contact [facility] in the morning to determine time of them coming to assess. Orin Reynoso, TIERRA/Renewable Energy Technician
[2018-03-05] MEDS: OXYCODONE 5 MG/5 ML ORAL SOLUTION PO (15:53)
--- NOTE | 2018-03-05 16:19 | PC.NURSE ---
Addendum entered by Fadumo Aldridge R.N. 03/05/18 22:14: Continuous morphine jig mill operator use 7.8 mg. Rouses to tactile and verbal stimuli, but quickly returns to resting state. Repositioned to right side and oral care by FELT HAT FLANGING OPERATOR. Joe hose BL removed d/t generalized edema. Pt's wristwatch removed by sonBlaine, and in said's possession. Original Note: Addendum entered by Fadumo Aldridge R.N. 03/05/18 21:20: Respirations are even and unlabored. No signs of distress. Occasionally opens eyes, but returns to resting state. Urine per marcos is scant and deep jessy in color. SonBlaine, leaves for hour but plans to room in overnight. Original Note: Addendum entered by Fadumo Aldridge R.N. 03/05/18 19:59: SonBlaine, sitting at bedside holding pt's hand. Pt resting quietly in bed with eyes closed. Occasional jerking movement of extremities. Original Note: Addendum entered by Fadumo Aldridge R.N. 03/05/18 18:40: Calling out in to hallway, Help me, help me. Staff attend quickly. Pt is awake with furrowed brow. Pt is reassured by FELT HAT FLANGING OPERATORPeggy. Pt states, Ow. Inquired of pt if experiencing pain and pt replies, Yes, Morphine jig mill operator increased to 2 mg/hr and positioned pt on left side and waffle cushion placed under buttocks. Dr. Garber informed as well as pt's son, Blaine, who has now returned to room. Joe hose BL rolled down to accomodate pt's edema. Pt does state to FELT HAT FLANGING OPERATOR better. Oral care by FELT HAT FLANGING OPERATOR. Original Note: Addendum entered by Fadumo Aldridge R.N. 03/05/18 17:48: Pt remains wakeful, calling out with furrowed brow, Help me. Staff attend and reassure pt and offer position changes. Morphine JOINT CUTTER MACHINE increased to 1mg/hr. Pt's son has stepped away momentarily. Original Note: Addendum entered by Fadumo Aldridge R.N. 03/05/18 17:12: Dr. Garber in to see patient again. discussed with pt and pt's son, Blaine, who is present, making pt more comfortable by adding a morphine drip. JOINT CUTTER MACHINE morphine @ 0.5 mg/hr continuous initiated. Scope patch placed behind pt's left ear as ordered. Continuous pulse oximeter removed after discussion with MD. Health Unit Coordinator visit offered to pt's son who declines. Original Note: Pt wakeful at change of shift. Furrowed brow and requests position change. This was done. Pt's son is present, attentive and involved in pt's care. Dr. Garber in to see patient. Orders per Dr. Garber to administer now dose of oxycodone and this was done. 02 2L nc sats 91-92%. Scant urinary output per marcos. Pt in and out of awareness, but when asked, reports pain is a little better. Asked pt if fearful or scared and pt replies, yes. Discussed with Dr. Garber. Informed MD of pt's degree of weakness with taking oral meds and discussed with MD holding pt's po meds. This was discussed with pt's son, Blaine, and all are in agreement.
[2018-03-05] MEDS: LORazepam 2 MG/ML SYRINGE 1 MG IV (16:35)
--- NOTE | 2018-03-05 16:53 | PM.PN.1 ---
Subjective Date Patient Seen: 03/05/18 Interval history: The patient unexpectedly began to decline throughout the course of the day. Initially the patient was complaining of abdominal pain but then became more withdrawn and somnolent. Her urine output decreased significantly and she is now anuric. She began exhibiting Manpreet-Rahman breathing. Had an in-depth conversation with the patient's son, who would like to transition her to end of life care at this time. Exam Vital Signs (past 8 hours): - 03/05/18 09:00 Pulse Oximetry 92 Fraction of Inspired Oxygen 32 Oxygen Delivery Method Nasal Cannula Oxygen Flow Rate 2 Narrative Exam Narrative: General: Elderly female lying in bed, somnolent, unresponsive, with Michelle Rahman breathing HEENT: Normocephalic, atraumatic. Neck: Supple. No lymphadenopathy or thyromegaly. Cardiovascular: Regular rate and rhythm without murmurs, rubs, or gallops appreciated Pulmonary: Diminished breath sounds throughout. Abdomen: Soft, patient grimaces to palpation, protuberant. Extremities: No clubbing or cyanosis. Anasarca. Skin: Normal temperature; no rash, ulcers, or subcutaneous nodules appreciated. Neurological: Somnolent. Objective Labs Result Diagrams: 03/05/18 05:17 03/03/18 04:56 Labs: Laboratory Results - last 24 hr 03/05/18 05:17 WBC 13.9 H RBC 5.21 H Hgb 16.3 H Hct 49.4 H MCV 94.7 MCH 31.2 MCHC 33.0 RDW 15.6 H Plt Count 307 Neut % (Auto) 79.9 H Lymph % (Auto) 8.5 L Duchesne % (Auto) 10.9 Eos % (Auto) 0.2 L Baso % (Auto) 0.5 Neut # (Auto) 44879 H Assessment & Plan Plan: Assessment/Plan Narrative: 1. 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 Active. -Ordered and of life care. 2. End of life care. -Started morphine gtt with Ativan boluses. -Ordered scopolamine patch and sublingual atropine as needed for secretions. Disposition: Patient likely to in the next 24 hr. Quality VTE Deep Vein Thrombosis/Pulmonary Embolism Present on Admission: No
[2018-03-05] MEDS: MORPHINE PCA 30 MG/30 ML PCA.VIAL IV (17:01)
[2018-03-05] MEDS: SCOPOLAMINE 1 PATCH TOP (17:04)
[2018-03-05] MEDS: SODIUM CHLORIDE 0.9% 500 ML 21 ML IV (20:15)
[2018-03-05] MEDS: ATROPINE 1% OPHTH 2 DROPS SL (23:30)
[2018-03-05] MEDS: LORazepam 2 MG/ML SYRINGE 0.5 MG IV (23:47)
[2018-03-06] MEDS: LORazepam 2 MG/ML SYRINGE 0.5 MG IV (01:52)
[2018-03-06 02:22] VITALS: TEMP 38.9
[2018-03-06] MEDS: ACETAMINOPHEN 650 MG SUPP PR (02:22)
[2018-03-06] MEDS: ATROPINE 1% OPHTH 2 DROPS SL (03:15)
--- NOTE | 2018-03-06 03:28 | PC.NURSE ---
Addendum entered by Kaylene Wayne R.N. 03/06/18 05:29: Son, Blaine, at bedside. Pt without spontaneous respiration or heartbeat at 0520. Dr Dumas notified by phone, coordinator notified as well. Original Note: Shift Note: Assumed care at 2300 from evening shift, pt is non-responsive but eyes are open and moving arms. Pt on comfort care. At assessment pt's breathing was shallow and labored, lung sounds are moist and course, hands and feet are mottled in appearance. Have titrated morphine FERRYBOAT OPERATOR CABLE from 2mg to 5mg in increments of 1mg for comfort of pt. Called Dr Gregory on shift for fever of 102.1 and was given an order of Tylenol MT per pt's family member request. Coordinator made aware of decline of pt over course of shift in anticipation of end of life.
[2018-03-06] MEDS: MORPHINE PCA 30 MG/30 ML PCA.VIAL 5 MG IV (04:17)
--- NOTE | 2018-03-06 09:05 | CM.DPC ---
DCP Cont: Was informed by nurse, Miguel, that patient had this morning at approximately 0520. Son had been at bedside. Called [facility]. Let Tamiko know that patient passed, for original plan was for patient to be transferred to their facility. It was determined last pm that patient would remain here on comfort care. Orin Reynoso RN/Store Team Leader
--- NOTE | 2018-03-06 22:00 | PM.DS.1 ---
History of Present Illness Date Patient Seen: 02/23/18 Chief complaint: Low blood pressure Narrative: Chief complaint: Low blood pressure Narrative: PMH: HTN, HLD, WALESKA, hypothyroidism, polyneuropathy, depression, GERD, hiatal hernia, chronic lumbar back pain w/ sciatica, OA, tobacco dependence, prior history of heavy alcohol use PSH: cholecystectomy, appendectomy, hysterectomy Patient presented to the ED via EMS transfer on 02/22/2018 at 1933 respectively. Shortly prior to ED arrival, patient was sitting in her walker, she felt her legs to become weak and slipped off the walker landing onto her right side. Patient denies injury to the head and loss of conscious. With the exception of leg weakness the patient patient did not experience dizziness, lightheadedness, chest pain, palpitations, or diaphoresis. However, upon EMS arrival, patient was placed in a sitting position, at which time she was observed for symptoms consistent with postural changes. She was treated w/ 1L of NS bolus in field and received 2 L of NS in ED. Patient reports presence of PVCs for which she takes a beta-kurt; however, she denies history of tachy or vazquez arrhythmia, TIA/CVA, or thrombosis. In the past 2-3 weeks ago patient has been experiencing intermittent chest discomfort, which she describes as dull and at times sharp. Denies pleurisy, radiation to upper extremities, back, neck, or jaw. She experiences the chest discomfort multiple times a day. Denies associated dyspnea (at rest or with exertion), orthopnea, or peripheral edema. She has noted abdominal distension and abdominal discomfort in the upper quadrants of the abdomen. Notes constipation. Denies nausea, vomiting, or hemoptysis. Denies fever and chills. No significant weight loss, or profound fatigue, ecchymoses, or blood loss per rectum. Arthropathy present. Patient is known to have a 50 pack year history of tobacco dependence. Current smokes 1/2 pack per day. Known to have prior history of EtOH abuse, half a bottle of wine daily for 3 years, quit 10 years ago. Family history significant for myelodysplastic disorder in her mother. ED presentation / work-up T 98.7, BP 113/61, HR 82, RR 20, SpO2 91% WBC 9.9, RBC 5.07, HGB 16.0, HCT 47.2, PLT 315 NA 135, K 4.2, CL 101, CO2 22, CA 9.4, GLU 169 BUN 20, CR 0.9, BUN:CR 22.2, GFR > 60 Lactate 0.8, Trop < 0.012 T. BILI 1.4, AST 170, ALT 142, ALK PHOS 254, ALB 3.7, Lipase 250 Discharge Providers Date of admission: 02/23/18 00:21 Primary care physician: Jermaine Reid MD Consults: 02/23/18 02:27 Consult to Dietitian, Adult Routine Comment: Reason For Exam: protein calorie malnutrition Consult to Discharge Planning Routine Comment: Consult to Physical Therapy Evaluate & Treat Comment: Physician Instructions: Evaluate and Treat 02/23/18 03:50 Consult to Respiratory Therapy Evaluate & Treat Comment: Physician Instructions: Evaluate and treat 02/23/18 10:47 Consult to Occupational Therapy Evaluate & Treat Comment: Physician Instructions: Evaluate and treat 03/02/18 08:47 Consult to Hospice Referral Routine Comment: Discharge provider: Yari Garber DO Discharge Date: 03/08/18 Summary Discharge Diagnosis: 1. 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 Active. 2. End of life care. 3. Acute metabolic encephalopathy, present on admission. Improving. 4. Hypotension, present on admission. Resolved. 5. Generalized anxiety disorder, chronic, present on admission. Hospital Course: The patient was a 77-year-old with a past medical history for HTN, HLD, WALESKA, hypothyroidism, polyneuropathy, tobacco dependence, prior history of heavy alcohol use who was admitted for hypotension and was found early in hospital stay to have metastatic small cell carcinoma to live and bone. The later part of her hospital stay her pain medications were being adjusted and she [facility] with comfort care measures only. Then the patient unexpectedly began to decline throughout the course of the day on 03/07/18. Initially the patient was complaining of abdominal pain but then became more withdrawn and somnolent. Her urine output decreased significantly and she became anuric. She began exhibiting Manpreet-Rahman breathing. Had an in-depth conversation with the patient's son, who transitioned her to end of life care. She at 5:20 am 03/08/18. Exam Vital Signs (past 8 hours): Fraction of Inspired Oxygen 32 Oxygen Delivery Method Nasal Cannula Oxygen Flow Rate 2 Narrative Exam Narrative: 03/07: General: Elderly female lying in bed, somnolent, unresponsive, with Michelle Rahman breathing HEENT: Normocephalic, atraumatic. Neck: Supple. No lymphadenopathy or thyromegaly. Cardiovascular: Regular rate and rhythm without murmurs, rubs, or gallops appreciated Pulmonary: Diminished breath sounds throughout. Abdomen: Soft, patient grimaces to palpation, protuberant. Extremities: No clubbing or cyanosis. Anasarca. Skin: Normal temperature; no rash, ulcers, or subcutaneous nodules appreciated. Neurological: Somnolent. Objective Labs Result Diagrams: 03/05/18 05:17 03/03/18 04:56 Discharge Plan Discharge Plan Patient Disposition: Discharge Med Rec/Prescriptions Follow up/Referrals: Jermaine Reid MD [Primary Care Provider] - Discharge Data Primary Care Provider: Jermaine Reid Attending Provider: Goran Ramey Admit Date/Time: 02/23/18 00:21 Discharges patient from system. Discharge Date/Time: 03/06/18 07:52 Quality VTE Deep Vein Thrombosis/Pulmonary Embolism Present on Admission: No
== END 2018-03-06 07:52 | disposition expired | DRG 180 ==
LOC: ED 02-23 00:16 → AC 02-23 09:53
PROVIDERS: Hospitalist; Internal Medicine; Admitting Provider Nurse Practitioner Gerontology; Emergency Provider Emergency Medicine; PCP Student in an Organized Health Care Education/Training Program; Visit Provider Nurse Practitioner Gerontology
DX: C34.32 Malignant neoplasm of lower lobe, left bronchus or lung (principal); G93.41 Metabolic encephalopathy; I42.5 Other restrictive cardiomyopathy; C78.7 Secondary malignant neoplasm of liver and intrahepatic bile duct; C79.51 Secondary malignant neoplasm of bone; I95.9 Hypotension, unspecified; E86.0 Dehydration; E83.39 Other disorders of phosphorus metabolism; R82.71 Bacteriuria; I10 Essential (primary) hypertension; E78.5 Hyperlipidemia, unspecified; E03.9 Hypothyroidism, unspecified; G62.9 Polyneuropathy, unspecified; F32.9 Major depressive disorder, single episode, unspecified; K21.9 Gastro-esophageal reflux disease without esophagitis; F17.210 Nicotine dependence, cigarettes, uncomplicated; M25.512 Pain in left shoulder; F41.9 Anxiety disorder, unspecified; W18.30XA Fall on same level, unspecified, initial encounter
CPT/HCPCS: 32405; 36415; 36591; 71045; 71260; 72197; 74177; 77012; 78306; 80048; 80053; 80076; 81001; 82728; 83540; 83550; 83605; 83690; 83735; 84100; 84484; 85025; 85610; 85730; 87077; 87086; 87186; 88305; 88341; 88342; 93005; 93010; 94660; 94760; 94762; 96360; 96361; 97110; 97162; 97165; 97530; 99231; 99284; 99285; 99406; A9503; A9579; J0696; J1170; J1940; J2060; J2250; J2405; J3010; Q9967